=== PATIENT | male | born 1965 | race Caucasian/White ===

== ENCOUNTER 2018-08-04 08:29 | Emergency (ER) | payer OTHER ==
[2018-08-04 08:36] VITALS: RESP 18; TEMP 98.9
[2018-08-04] MEDS ORDERED: MAG HYDROX/AL HYDROX/SIMETH 30 ML, HYOSCYAMINE ELIXIR 10 ML, CIMETIDINE HCL 300 MG PO STA ×3 (08:48)
--- NOTE | 2018-08-04 08:51 | ED ---
Abdominal Pain HPI - General Chief Complaint: Abdominal Pain Stated Complaint: weakness, abd pain Time Seen by Provider: 08/04/18 08:38 Source: patient, family, RN notes reviewed Mode of arrival: wheelchair Limitations: no limitations - History of Present Illness Initial Comments: This a 52-year-old male presents emergency Department chief complaint of upper abdominal pain for the last 5 days. Patient states that pain started after he received influenza vaccine. Patient believes this is related. Patient denies any nausea, vomiting, diarrhea, constipation, dysuria or hematuria. Patient had no fever or chills. He states when he eats his symptoms get better and then it return a few hours after. Patient denies any chest pain or shortness breath denies any reflux issues. Patient states he does have a history of CHF and epilepsy. Patient denies any sick contacts denies any other associated symptoms. - Related Data Allergies Allergy/AdvReac Type Severity Reaction Status Date / Time No Known Allergies Allergy Verified 08/04/18 08:33 Review of Systems ROS Statement: Those systems with pertinent positive or pertinent negative responses have been documented in the HPI. ROS Other: All systems not noted in ROS Statement are negative. Past Medical History Past Medical History: Heart Failure, Seizure Disorder History of Any Multi-Drug Resistant Organisms: None Reported Past Surgical History: No Surgical Hx Reported Past Psychological History: Depression Smoking Status: Never smoker Past Alcohol Use History: None Reported Past Drug Use History: None Reported General Exam Limitations: no limitations General appearance: alert, in no apparent distress Head exam: Present: atraumatic, normocephalic, normal inspection Eye exam: Present: normal appearance, PERRL, EOMI. Absent: scleral icterus, conjunctival injection, periorbital swelling ENT exam: Present: normal exam, normal oropharynx, mucous membranes moist Neck exam: Present: normal inspection, full ROM. Absent: tenderness, meningismus, lymphadenopathy Respiratory exam: Present: normal lung sounds bilaterally. Absent: respiratory distress, wheezes, rales, rhonchi, stridor Cardiovascular Exam: Present: regular rate, normal rhythm, normal heart sounds. Absent: systolic murmur, diastolic murmur, rubs, gallop, clicks GI/Abdominal exam: Present: soft, tenderness (Very minimal upper abdominal tenderness), normal bowel sounds. Absent: distended, guarding, rebound, rigid Back exam: Absent: CVA tenderness (R), CVA tenderness (L) Neurological exam: Present: alert, oriented X3, CN II-XII intact Skin exam: Present: warm, dry, intact, normal color. Absent: rash Course Vital Signs 08/04/18 08/04/18 08/04/18 08:33 08:52 10:01 Temperature 98.9 F Pulse Rate 71 62 Respiratory 18 Rate Blood Pressure 134/84 132/80 130/77 O2 Sat by Pulse 97 96 Oximetry Medical Decision Making - Medical Decision Making 52-year-old male presents emergency from for not feeling well, weak rundown abdominal pain. Patient has troponin of 0.019. EKG shows left bundle. Patient believes he has a history of this though no prior EKG. Patient will be held for repeat cardiac enzymes will be placed on Protonix for gastritis as she' s had some improvement with GI cocktail. - Lab Data Result diagrams: 08/04/18 08:58 08/04/18 08:58 Lab Results 08/04/18 08/04/18 08/04/18 Range/Units 08:58 08:58 08:58 WBC 6.8 (3.8-10.6) k/uL RBC 4.63 (4.30-5.90) m/uL Hgb 14.5 (13.0-17.5) gm/dL Hct 41.9 (39.0-53.0) % MCV 90.5 (80.0-100.0) fL MCH 31.3 (25.0-35.0) pg MCHC 34.6 (31.0-37.0) g/dL RDW 12.9 (11.5-15.5) % Plt Count 181 (150-450) k/uL Neutrophils % 69 % Lymphocytes % 22 % Monocytes % 5 % Eosinophils % 1 % Basophils % 1 % Neutrophils # 4.7 (1.3-7.7) k/uL Lymphocytes # 1.5 (1.0-4.8) k/uL Monocytes # 0.3 (0-1.0) k/uL Eosinophils # 0.1 (0-0.7) k/uL Basophils # 0.0 (0-0.2) k/uL PT 10.3 (9.0-12.0) sec INR 1.1 (<1.2) APTT 25.7 (22.0-30.0) sec Sodium 141 (137-145) mmol/L Potassium 4.9 (3.5-5.1) mmol/L Chloride 102 (98-107) mmol/L Carbon Dioxide 29 (22-30) mmol/L Anion Gap 10 mmol/L BUN 17 (9-20) mg/dL Creatinine 1.18 (0.66-1.25) mg/dL Est GFR (CKD-EPI)AfAm 83 (>60 ml/min/1.73 sqM) Est GFR (CKD-EPI)NonAf 72 (>60 ml/min/1.73 sqM) Glucose 111 H (74-99) mg/dL Calcium 9.6 (8.4-10.2) mg/dL Total Bilirubin 0.6 (0.2-1.3) mg/dL AST 20 (17-59) U/L ALT 25 (21-72) U/L Alkaline Phosphatase 61 (38-126) U/L Troponin I (0.000-0.034) ng/mL Total Protein 7.9 (6.3-8.2) g/dL Albumin 4.3 (3.5-5.0) g/dL Amylase 64 (30-110) U/L Lipase 112 (23-300) U/L Urine Color Urine Appearance (Clear) Urine pH (5.0-8.0) Ur Specific [place] (1.001-1.035) Urine Protein (Negative) Urine Glucose (UA) (Negative) Urine Ketones (Negative) Urine Blood (Negative) Urine Nitrite (Negative) Urine Bilirubin (Negative) Urine Urobilinogen (<2.0) mg/dL Ur Leukocyte Esterase (Negative) 08/04/18 08/04/18 Range/Units 08:58 Unknown WBC (3.8-10.6) k/uL RBC (4.30-5.90) m/uL Hgb (13.0-17.5) gm/dL Hct (39.0-53.0) % MCV (80.0-100.0) fL MCH (25.0-35.0) pg MCHC (31.0-37.0) g/dL RDW (11.5-15.5) % Plt Count (150-450) k/uL Neutrophils % % Lymphocytes % % Monocytes % % Eosinophils % % Basophils % % Neutrophils # (1.3-7.7) k/uL Lymphocytes # (1.0-4.8) k/uL Monocytes # (0-1.0) k/uL Eosinophils # (0-0.7) k/uL Basophils # (0-0.2) k/uL PT (9.0-12.0) sec INR (<1.2) APTT (22.0-30.0) sec Sodium (137-145) mmol/L Potassium (3.5-5.1) mmol/L Chloride (98-107) mmol/L Carbon Dioxide (22-30) mmol/L Anion Gap mmol/L BUN (9-20) mg/dL Creatinine (0.66-1.25) mg/dL Est GFR (CKD-EPI)AfAm (>60 ml/min/1.73 sqM) Est GFR (CKD-EPI)NonAf (>60 ml/min/1.73 sqM) Glucose (74-99) mg/dL Calcium (8.4-10.2) mg/dL Total Bilirubin (0.2-1.3) mg/dL AST (17-59) U/L ALT (21-72) U/L Alkaline Phosphatase (38-126) U/L Troponin I 0.019 (0.000-0.034) ng/mL Total Protein (6.3-8.2) g/dL Albumin (3.5-5.0) g/dL Amylase (30-110) U/L Lipase (23-300) U/L Urine Color Yellow Urine Appearance Clear (Clear) Urine pH 7.0 (5.0-8.0) Ur Specific [place] 1.024 (1.001-1.035) Urine Protein Trace H (Negative) Urine Glucose (UA) Negative (Negative) Urine Ketones Negative (Negative) Urine Blood Negative (Negative) Urine Nitrite Negative (Negative) Urine Bilirubin Negative (Negative) Urine Urobilinogen <2.0 (<2.0) mg/dL Ur Leukocyte Esterase Negative (Negative) - EKG Data EKG Comments: EKG performed at 9:16 normal sinus rhythm with a left bundle branch block, rate 63 [place] 138 QRS 18 QT/QTC 502/513 Disposition Clinical Impression: Weakness, Gastritis, Left bundle branch block Disposition: ADMITTED IP TO THIS HOSP Condition: Stable Referrals: Ran Arboleda MD [Primary Care Provider] - 1-2 days
[2018-08-04 09:28] LABS: Basophils % (A) 1 %; Eosinophils # (A) 0.1 k/uL (0-0.7); Eosinophils % (A) 1 %; HCT 41.9 % (39.0-53.0); HGB 14.5 gm/dL (13.0-17.5); Lymphocytes # (A) 1.5 k/uL (1.0-4.8); Lymphocytes % (A) 22 %; MCH 31.3 pg (25.0-35.0); MCHC 34.6 g/dL (31.0-37.0); MCV 90.5 fL (80.0-100.0); Mean Platelet Volume 7.8; Monocytes # (A) 0.3 k/uL (0-1.0); Monocytes % (A) 5 %; Neutrophils # (A) 4.7 k/uL (1.3-7.7); Neutrophils % (A) 69 %; Platelet Count 181 k/uL (150-450); RBC 4.63 m/uL (4.30-5.90); RDW 12.9 % (11.5-15.5); WBC 6.8 k/uL (3.8-10.6)
[2018-08-04 09:29] LABS: Albumin 4.3 g/dL (3.5-5.0); Calcium 9.6 mg/dL (8.4-10.2); INR 1.1 (<1.2); Partial Thromboplastin Time 25.7 sec (22.0-30.0); Potassium 4.9 mmol/L (3.5-5.1); Prothrombin Time 10.3 sec (9.0-12.0); Total Bilirubin 0.6 mg/dL (0.2-1.3); Total Protein 7.9 g/dL (6.3-8.2)
--- NOTE | 2018-08-04 09:37 | XR ---
EXAMINATION TYPE: XR KUB , 2 VIEWS DATE OF EXAM ORDERED: 08/04/2018 HISTORY: abdominal pain. COMPARISON: None. FINDINGS: The entire abdomen is not visualized on this study. The bowel gas pattern is normal. There is no gross free air. There are no unusual calcifications. IMPRESSION: INCOMPLETE EXAMINATION OF THE ABDOMEN DEMONSTRATING NO ACUTE PROCESS.
[2018-08-04 10:20] VITALS: PULSE 62
[2018-08-04 10:45] LABS: Appearance,Urine Clear (Clear); Bilirubin,Urine Negative (Negative); Blood,Urine Negative (Negative); Color,Urine Yellow; Glucose,Urine (UA) Negative (Negative); Ketones,Urine Negative (Negative); Leukocyte Esterase,Urine Negative (Negative); Nitrite,Urine Negative (Negative); Protein,Urine Trace (Negative); Specific Gravity,Urine 1.024 (1.001-1.035); Urobilinogen,Urine <2.0 mg/dL (<2.0)
[2018-08-04] MEDS ORDERED: ACETAMINOPHEN TAB 325 MG TAB PO PRN (11:02)
[2018-08-04] MEDS ORDERED: ONDANSETRON 4 MG/2 ML VIAL IVP PRN (11:02)
[2018-08-04] MEDS ORDERED: PANTOPRAZOLE 40 MG/10 ML VIAL IV SCH (11:15)
--- NOTE | 2018-08-04 11:28 | XR ---
EXAMINATION TYPE: XR chest 2V DATE OF EXAM: 08/04/2018 HISTORY: Pain. REFERENCE: NONE. FINDINGS: Heart size upper limits of normal. The lungs are clear. Pleural spaces are clear. IMPRESSION: NO ACUTE INTRATHORACIC ABNORMALITY.
[2018-08-04 11:49] VITALS: BP 140/84
== END 2018-08-04 11:50 | disposition other institution (70) ==
LOC: EC 08:29
DX: K29.70 Gastritis, unspecified, without bleeding (principal); R53.1 Weakness; I44.7 Left bundle-branch block, unspecified
CPT/HCPCS: 36415; 71046; 74018; 80053; 81003; 82150; 83690; 84484; 85025; 85610; 85730; 93005; 99284

== ENCOUNTER 2022-02-10 00:04 | Observation (INO) | payer OTHER ==
[2022-02-10 00:10] VITALS: TEMP 98.2
[2022-02-10 00:58] LABS: Basophils # (A) 0.1 k/uL (0-0.2); Basophils % (A) 1 %; Eosinophils # (A) 0.1 k/uL (0-0.7); Eosinophils % (A) 2 %; HCT 43.4 % (39.0-53.0); HGB 13.5 gm/dL (13.0-17.5); Lymphocytes # (A) 1.3 k/uL (1.0-4.8); Lymphocytes % (A) 16 %; MCH 31.1 pg (25.0-35.0); MCV 100.3 fL (80.0-100.0); Mean Platelet Volume 10.6; Monocytes # (A) 0.6 k/uL (0-1.0); Monocytes % (A) 8 %; Neutrophils # (A) 5.8 k/uL (1.3-7.7); Neutrophils % (A) 72 %; Platelet Count 190 k/uL (150-450); RBC 4.33 m/uL (4.30-5.90); RDW 13.5 % (11.5-15.5)
--- NOTE | 2022-02-10 01:01 | XR ---
EXAMINATION TYPE: XR chest 2V DATE OF EXAM: 02/10/2022 COMPARISON: 08/04/2018 HISTORY: Abdominal pain TECHNIQUE: 2 views FINDINGS: Heart is enlarged. There is no heart failure. There are chest leads. Costophrenic angles ar e fairly clear. No pulmonary consolidation. Bony thorax is intact. There are chest leads. IMPRESSION: There is cardiomegaly. Heart is increased compared to old exam. No heart failure seen.
[2022-02-10 01:07] LABS: INR 1.1 (<1.2); Partial Thromboplastin Time 22.1 sec (22.0-30.0); Prothrombin Time 12.2 sec (9.0-12.0)
[2022-02-10 01:11] LABS: Albumin 3.7 g/dL (3.5-5.0); Calcium 8.7 mg/dL (8.4-10.2); Magnesium 2.1 mg/dL (1.6-2.3); Total Bilirubin 0.9 mg/dL (0.2-1.3); Total Protein 8.2 g/dL (6.3-8.2)
[2022-02-10] MEDS ORDERED: FUROSEMIDE 10 MG/ML 4 ML VIAL IV SCH (01:45)
--- NOTE | 2022-02-10 01:50 | ED ---
SOB HPI - General Chief Complaint: Shortness of Breath Stated Complaint: SHADE Time Seen by Provider: 02/10/22 00:38 Source: patient Mode of arrival: ambulatory Limitations: no limitations - History of Present Illness Initial Comments: This patient is a 56-year-old man who presents with 3 days of progressively worsening orthopnea. Patient states that he is not even able to sleep now he must remain upright or he becomes very short of breath. Patient does give history of heart failure. He states that he is scheduled to have ICD placement next month. He has not noted fever or chills. No productive cough. No chest pain. No change in urination or bowel movements. No leg pain or swelling. MD Complaint: shortness of breath Onset/Timin -: days(s) Severity scale (1-10): 0 Consistency: constant Improves With: nothing Worsens With: lying flat Known History Of: congestive heart failure Associated Symptoms: denies other symptoms Treatments Prior to Arrival: none - Related Data Home Medications Medication Instructions Recorded Confirmed Doxycycline Hyclate 100 mg PO BID 02/10/22 02/10/22 Fluticasone Nasal [place] [Flonase 2 spr EA NOSTRIL DAILY 02/10/22 02/10/22 Nasal [place]] Furosemide [Lasix] 20 mg PO DAILY 02/10/22 02/10/22 Losartan [Cozaar] 50 mg PO HS 02/10/22 02/10/22 Pantoprazole [Protonix] 40 mg PO W/LUNCH 02/10/22 02/10/22 Potassium Chloride [Potassium 10 meq PO DAILY 02/10/22 02/10/22 Chloride ER] Sertraline [Zoloft] 25 mg PO DAILY 02/10/22 02/10/22 Spironolactone [Aldactone] 50 mg PO HS 02/10/22 02/10/22 carBAMazepine [Carbatrol] 600 mg PO BID 02/10/22 02/10/22 carvediloL [Coreg] 6.25 mg PO HS 02/10/22 02/10/22 carvediloL [Coreg] 12.5 mg PO DAILY 02/10/22 02/10/22 Allergies Allergy/AdvReac Type Severity Reaction Status Date / Time Penicillins Allergy Rash/Hives Verified 02/10/22 07:13 on entire body Review of Systems ROS Statement: Those systems with pertinent positive or pertinent negative responses have been documented in the HPI. ROS Other: All systems not noted in ROS Statement are negative. Constitutional: Denies: fever, chills Respiratory: Denies: cough, dyspnea Cardiovascular: Denies: chest pain Gastrointestinal: Denies: abdominal pain, vomiting, diarrhea, melena, hematochez ia Genitourinary: Denies: dysuria, hematuria Musculoskeletal: Denies: back pain Skin: Denies: rash Neurological: Denies: headache, weakness Past Medical History Past Medical History: Heart Failure, Seizure Disorder History of Any Multi-Drug Resistant Organisms: None Reported Past Surgical History: No Surgical Hx Reported Past Psychological History: Depression Smoking Status: Never smoker Past Alcohol Use History: None Reported Past Drug Use History: None Reported General Exam Limitations: no limitations General appearance: alert, in no apparent distress Head exam: Present: atraumatic, normocephalic Eye exam: Present: normal appearance. Absent: scleral icterus, conjunctival injection Neck exam: Present: normal inspection Respiratory exam: Present: normal lung sounds bilaterally, rales. Absent: respiratory distress, wheezes, rhonchi, stridor Cardiovascular Exam: Present: regular rate, normal rhythm, normal heart sounds. Absent: systolic murmur, diastolic murmur, rubs, gallop GI/Abdominal exam: Present: soft. Absent: distended, tenderness, guarding, rebound, rigid, mass Extremities exam: Present: normal inspection, normal capillary refill. Absent: pedal edema, calf tenderness Back exam: Present: normal inspection. Absent: CVA tenderness (R), CVA tenderness (L) Neurological exam: Present: alert Skin exam: Present: warm, dry, intact, normal color. Absent: rash Course Vital Signs 02/10/22 02/10/22 00:07 07:00 Temperature 98.2 F 98.2 F Pulse Rate 83 73 Respiratory 18 17 Rate Blood Pressure 113/78 101/68 O2 Sat by Pulse 98 98 Oximetry Medical Decision Making - Lab Data Result diagrams: 02/10/22 00:30 02/10/22 00:30 Lab Results 02/10/22 02/10/22 02/10/22 Range/Units 00:30 00:30 00:30 WBC 8.0 (3.8-10.6) k/uL RBC 4.33 (4.30-5.90) m/uL Hgb 13.5 (13.0-17.5) gm/dL Hct 43.4 (39.0-53.0) % MCV 100.3 H (80.0-100.0) fL MCH 31.1 (25.0-35.0) pg MCHC 31.0 (31.0-37.0) g/dL RDW 13.5 (11.5-15.5) % Plt Count 190 (150-450) k/uL MPV 10.6 Neutrophils % 72 % Lymphocytes % 16 % Monocytes % 8 % Eosinophils % 2 % Basophils % 1 % Neutrophils # 5.8 (1.3-7.7) k/uL Lymphocytes # 1.3 (1.0-4.8) k/uL Monocytes # 0.6 (0-1.0) k/uL Eosinophils # 0.1 (0-0.7) k/uL Basophils # 0.1 (0-0.2) k/uL PT 12.2 H (9.0-12.0) sec INR 1.1 (<1.2) APTT 22.1 (22.0-30.0) sec Sodium 139 (137-145) mmol/L Potassium 5.0 (3.5-5.1) mmol/L Chloride 105 (98-107) mmol/L Carbon Dioxide 25 (22-30) mmol/L Anion Gap 9 mmol/L BUN 35 H (9-20) mg/dL Creatinine 1.56 H (0.66-1.25) mg/dL Est GFR (CKD-EPI)AfAm 57 (>60 ml/min/1.73 sqM) Est GFR (CKD-EPI)NonAf 50 (>60 ml/min/1.73 sqM) Glucose 136 H (74-99) mg/dL Plasma Lactic Acid Steve (0.7-2.0) mmol/L Calcium 8.7 (8.4-10.2) mg/dL Magnesium 2.1 (1.6-2.3) mg/dL Total Bilirubin 0.9 (0.2-1.3) mg/dL AST 49 (17-59) U/L ALT 66 H (4-49) U/L Alkaline Phosphatase 97 (38-126) U/L Troponin I (0.000-0.034) ng/mL NT-Pro-B Natriuret Pep pg/mL Total Protein 8.2 (6.3-8.2) g/dL Albumin 3.7 (3.5-5.0) g/dL Coronavirus (PCR) (Not Detectd) Influenza Type A RNA (Not Detectd) Influenza Type B (PCR) (Not Detectd) 02/10/22 02/10/22 02/10/22 Range/Units 00:30 00:30 00:30 WBC (3.8-10.6) k/uL RBC (4.30-5.90) m/uL Hgb (13.0-17.5) gm/dL Hct (39.0-53.0) % MCV (80.0-100.0) fL MCH (25.0-35.0) pg MCHC (31.0-37.0) g/dL RDW (11.5-15.5) % Plt Count (150-450) k/uL MPV Neutrophils % % Lymphocytes % % Monocytes % % Eosinophils % % Basophils % % Neutrophils # (1.3-7.7) k/uL Lymphocytes # (1.0-4.8) k/uL Monocytes # (0-1.0) k/uL Eosinophils # (0-0.7) k/uL Basophils # (0-0.2) k/uL PT (9.0-12.0) sec INR (<1.2) APTT (22.0-30.0) sec Sodium (137-145) mmol/L Potassium (3.5-5.1) mmol/L Chloride (98-107) mmol/L Carbon Dioxide (22-30) mmol/L Anion Gap mmol/L BUN (9-20) mg/dL Creatinine (0.66-1.25) mg/dL Est GFR (CKD-EPI)AfAm (>60 ml/min/1.73 sqM) Est GFR (CKD-EPI)NonAf (>60 ml/min/1.73 sqM) Glucose (74-99) mg/dL Plasma Lactic Acid Steve 1.3 (0.7-2.0) mmol/L Calcium (8.4-10.2) mg/dL Magnesium (1.6-2.3) mg/dL Total Bilirubin (0.2-1.3) mg/dL AST (17-59) U/L ALT (4-49) U/L Alkaline Phosphatase (38-126) U/L Troponin I 0.210 H* (0.000-0.034) ng/mL NT-Pro-B Natriuret Pep 8470 pg/mL Total Protein (6.3-8.2) g/dL Albumin (3.5-5.0) g/dL Coronavirus (PCR) (Not Detectd) Influenza Type A RNA (Not Detectd) Influenza Type B (PCR) (Not Detectd) 02/10/22 02/10/22 Range/Units 00:57 00:57 WBC (3.8-10.6) k/uL RBC (4.30-5.90) m/uL Hgb (13.0-17.5) gm/dL Hct (39.0-53.0) % MCV (80.0-100.0) fL MCH (25.0-35.0) pg MCHC (31.0-37.0) g/dL RDW (11.5-15.5) % Plt Count (150-450) k/uL MPV Neutrophils % % Lymphocytes % % Monocytes % % Eosinophils % % Basophils % % Neutrophils # (1.3-7.7) k/uL Lymphocytes # (1.0-4.8) k/uL Monocytes # (0-1.0) k/uL Eosinophils # (0-0.7) k/uL Basophils # (0-0.2) k/uL PT (9.0-12.0) sec INR (<1.2) APTT (22.0-30.0) sec Sodium (137-145) mmol/L Potassium (3.5-5.1) mmol/L Chloride (98-107) mmol/L Carbon Dioxide (22-30) mmol/L Anion Gap mmol/L BUN (9-20) mg/dL Creatinine (0.66-1.25) mg/dL Est GFR (CKD-EPI)AfAm (>60 ml/min/1.73 sqM) Est GFR (CKD-EPI)NonAf (>60 ml/min/1.73 sqM) Glucose (74-99) mg/dL Plasma Lactic Acid Steve (0.7-2.0) mmol/L Calcium (8.4-10.2) mg/dL Magnesium (1.6-2.3) mg/dL Total Bilirubin (0.2-1.3) mg/dL AST (17-59) U/L ALT (4-49) U/L Alkaline Phosphatase (38-126) U/L Troponin I (0.000-0.034) ng/mL NT-Pro-B Natriuret Pep pg/mL Total Protein (6.3-8.2) g/dL Albumin (3.5-5.0) g/dL Coronavirus (PCR) Not Detected (Not Detectd) Influenza Type A RNA Not Detected (Not Detectd) Influenza Type B (PCR) Not Detected (Not Detectd) Disposition Clinical Impression: Congestive heart failure, Elevated troponin I level Disposition: ADMITTED IP TO THIS HOSP Condition: Fair Is patient prescribed a controlled substance at d/c from ED?: No
[2022-02-10] MEDS ORDERED: carvediloL 12.5 MG TAB PO SCH (09:30)
[2022-02-10] MEDS ORDERED: FLUTICASONE 50MCG/SPRAY NASAL 16GM EA NOSTRIL SCH (10:00)
[2022-02-10] MEDS ORDERED: carBAMazepine 300 MG CPMP.12HR PO SCH (10:00)
[2022-02-10] MEDS ORDERED: SERTRALINE 25 MG TAB PO SCH (10:00)
[2022-02-10 12:07] VITALS: RESP 18
[2022-02-10] MEDS ORDERED: PANTOPRAZOLE 40 MG TABLET PO SCH (12:30)
--- NOTE | 2022-02-10 12:46 | P.CRDCN ---
History of Present Illness History of present illness: HISTORY OF PRESENT ILLNESS: This is a 56-year-old male with a past medical history significant for seizure disorder, nonischemic cardiomyopathy, congestive heart failure, and hypertension. Patient follows in the office with Dr. Ramsey. We have been asked to see the patient in consultation for congestive heart failure. Patient examined at the bedside. Patient presented to the hospital a chief complaint of shortness of breath. He states his shortness of breath has only been when he is laying flat. He states it has been present for the past 3 days. The patient states he has been taking his medications as prescribed. However he reports a significant increase in his salt intake at home including eating potato chips and eating leftover ham from [facility] on a daily basis. He was given IV lasix with improvement in his SOB. He denies CP. Vital signs are stable. * EKG reveals sinus mechanism with no signs of acute ischemia * Chest xray there is cardiomegaly. Heart is increased compared to exam. No heart failure seen. * Laboratory data: WBC 8.0. Hemoglobin 13.5. Platelet count 190. Sodium 135. Potassium 5.0. BUN 35. Creatinine 1.56. ProBNP 8470. Troponin 0.210. 0.206. 0.214. * Current home cardiac medications include Lasix 20 mg daily, losartan 59 g at night, carvedilol 6.25 mg at night and 12.5 mg daily, and Aldactone 50 mg at night * Most recent echocardiogram obtained in November 2020 revealed ejection fraction of 20% with moderate to severe MR and moderate TR * Cardiac catheterization history: 1993 revealing no significant CAD REVIEW OF SYSTEMS: At the time of my exam: CONSTITUTIONAL: Denies fever or chills. HEENT: Denies blurred vision, vision changes, or eye pain. Denies hemoptysis CARDIOVASCULAR: Denies chest pain. Denies orthopnea. Denies PND. Denies palpitations RESPIRATORY: Denies shortness of breath. GASTROINTESTINAL: Denies abdominal pain. Denies nausea or vomiting. HEMATOLOGIC: Denies bleeding disorders. GENITOURINARY: Denies any blood in urine. SKIN: Denies pruitis. Denies rash. PHYSICAL EXAM: VITAL SIGNS: Reviewed. GENERAL: Well-developed in no acute distress. HEENT: Head is normocephalic. Pupils are equal, round. Sclerae anicteric. Mucous membranes of the mouth are moist. Neck supple. No JVD or thyromegaly LUNGS: Respirations even and unlabored. Lungs essentially clear to auscultation bilaterally. HEART: Regular rate and rhythm. S1 and S2 heard. ABDOMEN: Soft. Nondistended. Nontender. EXTREMITIES: Normal range of motion. No clubbing or cyanosis. Peripheral pulses intact. No lower extremity edema NEUROLOGIC: Awake and alert. Oriented x 3. ASSESSMENT: Acute on chronic heart failure with reduced ejection fraction Nonischemic cardiomyopathy Noncompliance with cardiac diet including increased sodium intake Hypertension Acute kidney injury PLAN: Discontinue IV lasix Increase home lasix to 40mg daily Recommend compliance with low salt diet Patient scheduled for Bi-V AICD implantation next month with Dr. May Patient may be discharged home today Nurse practitioner note has been reviewed by physician. Signing provider agrees with the documented findings, assessment, and plan of care. Past Medical History Past Medical History: Heart Failure, Seizure Disorder History of Any Multi-Drug Resistant Organisms: None Reported Past Surgical History: No Surgical Hx Reported Past Psychological History: Depression Smoking Status: Never smoker Past Alcohol Use History: None Reported Past Drug Use History: None Reported - Past Family History Father Family Medical History: Cancer Additional Family Medical History / Comment(s): Father from metastatic cancer/primary unknown Mother Family Medical History: Osteoarthritis (OA) Medications and Allergies Home Medications Medication Instructions Recorded Confirmed Type Doxycycline Hyclate 100 mg PO BID 02/10/22 02/10/22 History Fluticasone Nasal [place] [Flonase 2 spr EA NOSTRIL DAILY 02/10/22 02/10/22 History Nasal [place]] Furosemide [Lasix] 40 mg PO DAILY #30 tab 02/10/22 Rx Losartan [Cozaar] 50 mg PO HS 02/10/22 02/10/22 History Pantoprazole [Protonix] 40 mg PO W/LUNCH 02/10/22 02/10/22 History Potassium Chloride [Potassium 10 meq PO DAILY 02/10/22 02/10/22 History Chloride ER] Sertraline [Zoloft] 25 mg PO DAILY 02/10/22 02/10/22 History Spironolactone [Aldactone] 50 mg PO HS 02/10/22 02/10/22 History carBAMazepine [Carbatrol] 600 mg PO BID 02/10/22 02/10/22 History carvediloL [Coreg] 6.25 mg PO HS 02/10/22 02/10/22 History carvediloL [Coreg] 12.5 mg PO DAILY 02/10/22 02/10/22 History Allergies Allergy/AdvReac Type Severity Reaction Status Date / Time Penicillins Allergy Rash/Hives Verified 02/10/22 07:13 on entire body Physical Exam Vitals: Vital Signs Temp Pulse Resp BP Pulse Ox 02/10/22 07:00 98.2 F 73 17 101/68 98 02/10/22 00:07 98.2 F 83 18 113/78 98 Intake and Output 02/09/22 02/10/22 02/10/22 22:59 06:59 14:59 Output Total 1500 Balance -1500 Output: Urine 1500 Other: Weight 94.347 kg Results 02/10/22 00:30 02/10/22 00:30 Cardiac Enzymes 02/10/22 02/10/22 02/10/22 Range/Units 00:30 00:30 03:42 AST 49 (17-59) U/L Troponin I 0.210 H* 0.206 H* (0.000-0.034) ng/mL Coagulation 02/10/22 Range/Units 00:30 PT 12.2 H (9.0-12.0) sec APTT 22.1 (22.0-30.0) sec CBC 02/10/22 Range/Units 00:30 WBC 8.0 (3.8-10.6) k/uL RBC 4.33 (4.30-5.90) m/uL Hgb 13.5 (13.0-17.5) gm/dL Hct 43.4 (39.0-53.0) % Plt Count 190 (150-450) k/uL Comprehensive Metabolic Panel 02/10/22 Range/Units 00:30 Sodium 139 (137-145) mmol/L Potassium 5.0 (3.5-5.1) mmol/L Chloride 105 (98-107) mmol/L Carbon Dioxide 25 (22-30) mmol/L BUN 35 H (9-20) mg/dL Creatinine 1.56 H (0.66-1.25) mg/dL Glucose 136 H (74-99) mg/dL Calcium 8.7 (8.4-10.2) mg/dL AST 49 (17-59) U/L ALT 66 H (4-49) U/L Alkaline Phosphatase 97 (38-126) U/L Total Protein 8.2 (6.3-8.2) g/dL Albumin 3.7 (3.5-5.0) g/dL Current Medications Generic Name Dose Route Start Last Admin Trade Name Freq PRN Reason Stop Dose Admin Furosemide 40 mg 02/10/22 01:45 02/10/22 02:21 Furosemide 10 Mg/Ml 4 Ml Vial IV 40 mg Q12H [place] Administration Sodium Chloride 10 ml 02/10/22 09:00 Sodium Chloride 0.9% Flush 10 Ml Syringe IV BID [place] Intake and Output 02/09/22 02/10/22 02/10/22 22:59 06:59 14:59 Output Total 1500 Balance -1500 Output: Urine 1500 Other: Weight 94.347 kg 02/10/22 00:30 02/10/22 00:30
[2022-02-10 12:50] VITALS: BP 92/62; PULSE 71
--- NOTE | 2022-02-10 20:27 | P.HPIM ---
History of Present Illness H&P Date: 02/10/22 Chief Complaint: SHADE Patient is a 56-year-old male with a known history of nonischemic cardiomyopathy, chronic CHF with systolic dysfunction, seizure disorder, depression presents to ER with the complaints of worsening shortness breath for the past 3 days. Patient was also complaining of shortness of breath when lying flat which is worsening which made him to come to ER. Otherwise patient denied any complaints of fever or chills. Patient does have shortness of breath. No chest pain. Does have cough with whitish sputum production. No nausea vomiting abdominal pain or diarrhea. Patient was seen by his primary care physician recently and was started on antibiotics for possible sinusitis with doxycycline. Patient also reports that he is increasing salt intake at home including eating potato chips and eating leftover ham from the still on daily basis. Patient was given IV Lasix in the ER. EKG showed sinus rhythm with no significant ST-T wave changes. Chest x-ray showed increasing cardiomegaly. No heart failure seen. Lab data showed WBC 8.0 hemoglobin 13.5 and platelets 190 Sodium 139 potassium 5.0 chloride 105 bicarb is 25 BUN 35 creatinine 1.56 blood sugar is 136 and troponin 0.210, 0.206 and 0.214 proBNP is 8470 and coronavirus PCR not detected L albumin 3.7 Review of Systems Constitutional: Patient denies any fever or chills . No generalized weakness or weight loss. Abdomen: Patient denied nausea vomiting and diarrhea and abdominal pain. Cardiovascular: Patient denies any chest pain. Patient does have shortness of breath and orthopnea. No palpitations. Minimal leg swelling. Respiratory: Patient does have cough with whitish sputum production. And. shortness of breath Neurologic: Patient denied any numbness or tingling headache. Musculoskeletal: Patient denies any complaints of joint swelling or deformity. Skin: Negative Psychiatric: Negative Endocrine: No heat or cold intolerance. No recent weight gain. Genitourinary: No dysuria or hematuria. All other 14 point ROS negative except the above Past Medical History Past Medical History: Heart Failure, GERD/Reflux, Rheumatoid Arthritis (RA), Seizure Disorder Additional Past Medical History / Comment(s): CHF-pt to have AICD 03/14/22, Last seizure 2 years ago. Pt placed on antibiotic d/t upper respiratory tract infection on 02/09/22 History of Any Multi-Drug Resistant Organisms: None Reported Past Surgical History: No Surgical Hx Reported Additional Past Surgical History / Comment(s): Injury to lower back that caused a "lump" which was removed, conolonscopy Past Anesthesia/Blood Transfusion Reactions: No Reported Reaction Smoking Status: Former smoker - Past Family History Father Family Medical History: Cancer Additional Family Medical History / Comment(s): Father from metastatic cancer/primary unknown Mother Family Medical History: Osteoarthritis (OA) Medications and Allergies Home Medications Medication Instructions Recorded Confirmed Type Doxycycline Hyclate 100 mg PO BID 02/10/22 02/10/22 History Fluticasone Nasal [place] [Flonase 2 spr EA NOSTRIL DAILY 02/10/22 02/10/22 Hi story Nasal [place]] Furosemide [Lasix] 40 mg PO DAILY #30 tab 02/10/22 Rx Losartan [Cozaar] 50 mg PO HS 02/10/22 02/10/22 History Pantoprazole [Protonix] 40 mg PO W/LUNCH 02/10/22 02/10/22 History Potassium Chloride [Potassium 10 meq PO DAILY 02/10/22 02/10/22 History Chloride ER] Sertraline [Zoloft] 25 mg PO DAILY 02/10/22 02/10/22 History Spironolactone [Aldactone] 50 mg PO HS 02/10/22 02/10/22 History carBAMazepine [Carbatrol] 600 mg PO BID 02/10/22 02/10/22 History carvediloL [Coreg] 6.25 mg PO HS 02/10/22 02/10/22 History carvediloL [Coreg] 12.5 mg PO DAILY 02/10/22 02/10/22 History Allergies Allergy/AdvReac Type Severity Reaction Status Date / Time Penicillins Allergy Rash/Hives Verified 02/10/22 07:13 on entire body Physical Exam Vitals: Vital Signs Temp Pulse Resp BP Pulse Ox 02/10/22 08:58 74 20 111/68 97 02/10/22 07:00 98.2 F 73 17 101/68 98 02/10/22 00:07 98.2 F 83 18 113/78 98 Intake and Output 02/09/22 02/10/22 02/10/22 22:59 06:59 14:59 Output Total 1500 Balance -1500 Output: Urine 1500 Other: Weight 94.347 kg 94.347 kg PHYSICAL EXAMINATION: Patient is lying in the bed comfortably, no acute distress, awake alert and oriented.. HEENT: Normocephalic. Neck is supple. Pupils reactive. Nostrils clear. Oral cavity is moist. Neck reveals no JVD, carotid bruits, or thyromegaly. CHEST EXAMINATION: Trachea is central. Symmetrical expansion. Bibasilar crac kles. No wheezing.Lung ramos clear to auscultation and percussion. CARDIAC: Normal S1, S2 with no gallops. No murmurs ABDOMEN: Soft. Bowel sounds normal. No organomegaly. No abdominal bruits. Extremities: trace pedal edema. No clubbing or cyanosis Neurologically awake, alert, oriented x3 with well-coordinated movements. No focal deficits noted Skin: No rash or skin lesions. Psychiatric: Cooperative. Nonsuicidal Musculoskeletal: No joint swelling or deformity. Normal range of motion Results CBC & Chem 7: 02/10/22 00:30 02/10/22 00:30 Labs: Abnormal Lab Results - Last 24 Hours (Table) 02/10/22 02/10/22 02/10/22 Range/Units 00:30 00:30 00:30 MCV 100.3 H (80.0-100.0) fL PT 12.2 H (9.0-12.0) sec BUN 35 H (9-20) mg/dL Creatinine 1.56 H (0.66-1.25) mg/dL Glucose 136 H (74-99) mg/dL ALT 66 H (4-49) U/L Troponin I (0.000-0.034) ng/mL 02/10/22 02/10/22 02/10/22 Range/Units 00:30 03:42 08:05 MCV (80.0-100.0) fL PT (9.0-12.0) sec BUN (9-20) mg/dL Creatinine (0.66-1.25) mg/dL Glucose (74-99) mg/dL ALT (4-49) U/L Troponin I 0.210 H* 0.206 H* 0.214 H* (0.000-0.034) ng/mL Thrombosis Risk Factor Assmnt - DVT/VTE Prophylaxis DVT/VTE Prophylaxis: Pharmacologic Prophylaxis ordered - Choose All That Apply Any of the Below Risk Factors Present?: Yes Each Factor Represents 1 point: Age 41-60 years, Heart failure (<1month) Other Risk Factors: No Other congenital or acquired thrombophilia - If yes, enter type in comment: No Thrombosis Risk Factor Assessment Total Risk Factor Score: 2 Thrombosis Risk Factor Assessment Level: Low Risk Assessment and Plan Assessment: Worsening shortness of breath and orthopnea due to acute CHF Acute on chronic CHF with systolic dysfunction ejection fraction 20% Acute kidney injury. Possible cardiorenal. Nonischemic cardiomyopathy History of seizure disorder Depression DVT prophylaxis with heparin subcu Plan: Patient will be current on telemetry monitoring. Was given IV Lasix with impr ovement in respiratory status. Continue with oxygen at 2 L and will gradually titrate down to room air. Patient was seen by cardiology and recommended increase Lasix to 40 mg daily. Continue with aspirin, statins and Coreg and losartan. Patient is also on Aldactone. Patient is scheduled for biventricular ICD placement next month as per EP. Continue to follow closely. Discussed with the patient and his sister at bedside in detail. Time with Patient: Greater than 30
[2022-02-10] MEDS ORDERED: carvediloL 6.25 MG TAB PO SCH (21:00)
[2022-02-10] MEDS ORDERED: LOSARTAN 50 MG TAB PO SCH (21:00)
[2022-02-10] MEDS ORDERED: SPIRONOLACTONE 25 MG TAB PO SCH (21:00)
[2022-02-11] MEDS ORDERED: FUROSEMIDE 20 MG TAB PO SCH (09:00)
[2022-02-11] MEDS ORDERED: FUROSEMIDE 40 MG TAB PO SCH (09:00)
--- NOTE | 2022-03-02 09:46 | P.DS ---
Providers Date of admission: 02/10/22 01:37 Expected date of discharge: 02/10/22 Attending physician: Kenrick Saldaña Consults: 02/10/22 01:37 Consult Physician Routine Consulting Provider: Arie Garcia Consult Reason/Comments: CHF exacerbation. Elevated troponin Do you want consulting provider notified?: Yes Primary care physician: [facility] Course: Discharge diagnosis Worsening shortness of breath and orthopnea due to acute CHF Acute on chronic CHF with systolic dysfunction ejection fraction 20% Acute kidney injury. Possible cardiorenal. Nonischemic cardiomyopathy History of seizure disorder Depression DVT prophylaxis with heparin subcu Hospital course Patient is a 56-year-old male with a known history of nonischemic cardiomyopathy, chronic CHF with systolic dysfunction, seizure disorder, depression presents to ER with the complaints of worsening shortness breath for the past 3 days. Patient was also complaining of shortness of breath when lying flat which is worsening which made him to come to ER. Otherwise patient denied any complaints of fever or chills. Patient does have shortness of breath. No chest pain. Does have cough with whitish sputum production. No nausea vomiting abdominal pain or diarrhea. Patient was seen by his primary care physician recently and was started on antibiotics for possible sinusitis with doxycycline. Patient also reports that he is increasing salt intake at home including eating potato chips and eating leftover ham from the still on daily basis. Patient was given IV Lasix in the ER. EKG showed sinus rhythm with no significant ST-T wave changes. Chest x-ray showed increasing cardiomegaly. No heart failure seen. Lab data showed WBC 8.0 hemoglobin 13.5 and platelets 190 Sodium 139 potassium 5.0 chloride 105 bicarb is 25 BUN 35 creatinine 1.56 blood sugar is 136 and troponin 0.210, 0.206 and 0.214 proBNP is 8470 and coronavirus PCR not detected L albumin 3.7 Patient was on telemetry monitoring. Was given IV Lasix with improvement in respiratory status. Continue with oxygen at 2 L and will gradually titrate down to room air. Patient was seen by cardiology and recommended increase Lasix to 40 mg daily. Continue with aspirin, statins and Coreg and losartan. Patient is also on Aldactone. Patient is scheduled for biventricular ICD placement next month as per EP. PHYSICAL EXAMINATION: Patient is lying in the bed comfortably, no acute distress, awake alert and oriented.. HEENT: Normocephalic. Neck is supple. Pupils reactive. Nostrils clear. Oral cavity is moist. Neck reveals no JVD, carotid bruits, or thyromegaly. CHEST EXAMINATION: Trachea is central. Symmetrical expansion. No wheezing.Lung ramos clear to auscultation and percussion. CARDIAC: Normal S1, S2 with no gallops. No murmurs ABDOMEN: Soft. Bowel sounds normal. No organomegaly. No abdominal bruits. Extremities: trace pedal edema. No clubbing or cyanosis Neurologically awake, alert, oriented x3 with well-coordinated movements. No focal deficits noted Skin: No rash or skin lesions. Psychiatric: Cooperative. Nonsuicidal Musculoskeletal: No joint swelling or deformity. Normal range of motion Discharge vitals reviewed. Patient Condition at Discharge: Fair Plan - Discharge Summary Discharge Rx Participant: No New Discharge Prescriptions: Continue Pantoprazole [Protonix] 40 mg PO W/LUNCH PRN PRN Reason: Stomach pain carBAMazepine [Carbatrol] 600 mg PO BID-W/MEALS carvediloL [Coreg] 12.5 mg PO AC-BRKFST carvediloL [Coreg] 6.25 mg PO W/SUPPER Potassium Chloride [Potassium Chloride ER] 10 meq PO W/BRKFST Discontinued Furosemide [Lasix] 20 mg PO DAILY No Action Losartan [Cozaar] 25 mg PO HS 30 Days #30 tab Sertraline [Zoloft] 25 mg PO W/BRKFST Furosemide [Lasix] 40 mg PO W/BRKFST Aspirin 81 mg PO W/BRKFST Spironolactone [Aldactone] 25 mg PO W/SUPPER Discharge Medication List Pantoprazole [Protonix] 40 mg PO W/LUNCH PRN 02/10/22 [History] Potassium Chloride [Potassium Chloride ER] 10 meq PO W/BRKFST 02/10/22 [History] carBAMazepine [Carbatrol] 600 mg PO BID-W/MEALS 02/10/22 [History] carvediloL [Coreg] 6.25 mg PO W/SUPPER 02/10/22 [History] carvediloL [Coreg] 12.5 mg PO AC-BRKFST 02/10/22 [History] Spironolactone [Aldactone] 25 mg PO W/SUPPER 02/20/22 [History] Losartan [Cozaar] 25 mg PO HS 30 Days #30 tab 02/22/22 [Rx] Aspirin 81 mg PO W/BRKFST 02/24/22 [History] Furosemide [Lasix] 40 mg PO W/BRKFST 02/24/22 [History] Sertraline [Zoloft] 25 mg PO W/BRKFST 02/24/22 [History] Follow up Appointment(s)/Referral(s): Ran Arboleda MD [Primary Care Provider] - 1-2 days Discharge Disposition: HOME SELF-CARE
== END 2022-02-10 13:01 | disposition home or self-care (01) ==
LOC: EC 00:04 → INTOOBSV 01:37 → 3SCARD 01:37 → UNDODISIN 13:01
PROVIDERS: ADMIT Hospitalist; ATTEND Hospitalist
DX: I11.0 Hypertensive heart disease with heart failure (principal); I50.23 Acute on chronic systolic (congestive) heart failure; N17.9 Acute kidney failure, unspecified; I42.8 Other cardiomyopathies; G40.909 Epilepsy, unspecified, not intractable, without status epilepticus; F32.A Depression, unspecified; K21.9 Gastro-esophageal reflux disease without esophagitis; M06.9 Rheumatoid arthritis, unspecified; Z20.822 Contact with and (suspected) exposure to COVID-19; Z87.891 Personal history of nicotine dependence; Z79.899 Other long term (current) drug therapy; Z88.0 Allergy status to penicillin; Z71.9 Counseling, unspecified; Z91.11 Patient's noncompliance with dietary regimen; Z80.9 Family history of malignant neoplasm, unspecified; Z82.61 Family history of arthritis
CPT/HCPCS: 96374; 99285; 36415; 93005; 83880; 80053; 83605; 83735; 84484; 85025; 85610; 85730; 87502; 87635; 71046; G0378; J1940

== ENCOUNTER 2022-02-14 07:02 | Inpatient (IN) | payer OTHER ==
--- NOTE | 2022-02-14 08:25 | ED ---
SOB HPI - General Chief Complaint: Shortness of Breath Stated Complaint: chest pain Time Seen by Provider: 02/14/22 07:44 Source: patient Mode of arrival: wheelchair Limitations: no limitations - History of Present Illness Initial Comments: 56-year-old male with past mental history of nonischemic cardiomyopathy, CHF, valvular disease presents to the emergency department with shortness of breath. Patient was seen on the for similar complaint and was admitted for an elevated cardiac enzyme. They increased his Lasix to 40 mg. He is supposed to be following up with Dr. Brennan next month for AICD replacement. Patient reports that he has been taking the Lasix as directed however continues to have worsening shortness of breath, especially when laying flat. Mother is at bedside and states that he was up all night struggling to breathe. The patient has now developed bilateral calf cramping. No history of DVT. No fevers, chills or cough. Denies any chest pain. He attempted to follow-up with Dr. Brennan sooner however was told that he is completely booked. No other alleviating, precipitating or modifying factors - Related Data Home Medications Medication Instructions Recorded Confirmed Fluticasone Nasal [place] [Flonase 2 spr EA NOSTRIL DAILY 02/10/22 02/14/22 Nasal [place]] Losartan [Cozaar] 50 mg PO HS 02/10/22 02/14/22 Pantoprazole [Protonix] 40 mg PO W/LUNCH 02/10/22 02/14/22 Potassium Chloride [Potassium 10 meq PO DAILY 02/10/22 02/14/22 Chloride ER] Sertraline [Zoloft] 25 mg PO DAILY 02/10/22 02/14/22 Spironolactone [Aldactone] 50 mg PO HS 02/10/22 02/14/22 carBAMazepine [Carbatrol] 600 mg PO BID 02/10/22 02/14/22 carvediloL [Coreg] 6.25 mg PO HS 02/10/22 02/14/22 carvediloL [Coreg] 12.5 mg PO DAILY 02/10/22 02/14/22 Previous Rx's Medication Instructions Recorded Furosemide [Lasix] 40 mg PO DAILY #30 tab 02/10/22 Allergies Allergy/AdvReac Type Severity Reaction Status Date / Time cheese Allergy Unknown Verified 02/14/22 12:35 Penicillins Allergy Rash/Hives Verified 02/14/22 08:38 on entire body Review of Systems ROS Statement: Those systems with pertinent positive or pertinent negative responses have been documented in the HPI. ROS Other: All systems not noted in ROS Statement are negative. Past Medical History Past Medical History: Heart Failure, GERD/Reflux, Rheumatoid Arthritis (RA), Seizure Disorder Additional Past Medical History / Comment(s): CHF-pt to have AICD 03/14/22, Last seizure 2 years ago. Pt placed on antibiotic d/t upper respiratory tract infection on 02/09/22 History of Any Multi-Drug Resistant Organisms: None Reported Past Surgical History: No Surgical Hx Reported Additional Past Surgical History / Comment(s): Injury to lower back that caused a "lump" which was removed, conolonscopy Past Anesthesia/Blood Transfusion Reactions: No Reported Reaction Past Psychological History: Depression Smoking Status: Former smoker - Past Family History Father Family Medical History: Cancer Additional Family Medical History / Comment(s): Father from metastatic cancer/primary unknown Mother Family Medical History: Osteoarthritis (OA) General Exam Limitations: no limitations General appearance: alert, in no apparent distress Head exam: Present: atraumatic, normocephalic, normal inspection Eye exam: Present: normal appearance, PERRL, EOMI. Absent: scleral icterus, conjunctival injection, periorbital swelling ENT exam: Present: normal exam, mucous membranes moist Neck exam: Present: normal inspection. Absent: tenderness, meningismus, lymphadenopathy Respiratory exam: Present: normal lung sounds bilaterally. Absent: respiratory distress, wheezes, rales, rhonchi, stridor Cardiovascular Exam: Present: regular rate, normal rhythm, normal heart sounds. Absent: systolic murmur, diastolic murmur, rubs, gallop, clicks GI/Abdominal exam: Present: soft, normal bowel sounds. Absent: distended, tenderness, guarding, rebound, rigid Extremities exam: Present: normal inspection, full ROM, normal capillary refill. Absent: tenderness, pedal edema, joint swelling, calf tenderness Back exam: Present: normal inspection Neurological exam: Present: alert, oriented X3, CN II-XII intact Psychiatric exam: Present: normal affect, normal mood Skin exam: Present: warm, dry, intact, normal color. Absent: rash Course Vital Signs 02/14/22 02/14/22 02/14/22 07:04 07:27 08:07 Temperature 97.3 F L 97.9 F Pulse Rate 78 74 Pulse Rate [ Pulse Oximetery ] Respiratory 18 18 18 Rate Blood Pressure 103/65 104/63 Blood Pressure [Left Arm] O2 Sat by Pulse 98 94 L Oximetry 02/14/22 02/14/22 02/14/22 10:01 10:52 13:09 Temperature Pulse Rate 76 78 69 Pulse Rate [ Pulse Oximetery ] Respiratory 18 18 18 Rate Blood Pressure 101/74 95/63 95/58 Blood Pressure [Left Arm] O2 Sat by Pulse 99 96 98 Oximetry 02/14/22 02/14/22 02/14/22 15:00 16:00 16:30 Temperature 97.8 F Pulse Rate 98 71 72 Pulse Rate [ Pulse Oximetery ] Respiratory 18 18 18 Rate Blood Pressure 89/58 102/66 106/67 Blood Pressure [Left Arm] O2 Sat by Pulse 98 98 100 Oximetry 02/14/22 02/14/22 02/14/22 17:36 20:00 23:00 Temperature 98.5 F 98.3 F Pulse Rate 75 80 Pulse Rate [ 73 Pulse Oximetery ] Respiratory 18 18 18 Rate Blood Pressure 106/73 106/67 Blood Pressure 94/70 [Left Arm] O2 Sat by Pulse 99 98 98 Oximetry Medical Decision Making - Medical Decision Making On arrival patient is placed into room 9. A thorough history and physical exam is performed. IV access is established and laboratory studies are conducted. D-dimer is elevated at 2.49. Troponin is 0.106. Troponin was much higher when he was admitted a couple of days ago. BNP 5460. Chest x-ray demonstrates no acute process however I did do a CT of the patient's chest which demonstrates evidence for CHF and right-sided heart failure. Venous Dopplers are performed as the CTA is inadequate. Lower extremity Dopplers demonstrate no evidence of DVT. The patient does take his home blood pressure medications. Upon reevaluation the patient does have a drop in his blood pressure. Due to the difficulty of treating the patient with diuretics due to hypotension I did recommend admission for cardiology consultation. I called and spoke with Dr. Mirza who agreed to admit the patient. - Lab Data Result diagrams: 02/14/22 08:11 02/14/22 08:11 Lab Results 02/14/22 02/14/22 02/14/22 Range/Units 08:11 08:11 08:11 WBC 6.1 (3.8-10.6) k/uL RBC 4.15 L (4.30-5.90) m/uL Hgb 13.6 (13.0-17.5) gm/dL Hct 40.6 (39.0-53.0) % MCV 97.8 (80.0-100.0) fL MCH 32.7 (25.0-35.0) pg MCHC 33.4 (31.0-37.0) g/dL RDW 14.2 (11.5-15.5) % Plt Count 175 (150-450) k/uL MPV 10.5 Neutrophils % 73 % Lymphocytes % 16 % Monocytes % 7 % Eosinophils % 2 % Basophils % 1 % Neutrophils # 4.5 (1.3-7.7) k/uL Lymphocytes # 1.0 (1.0-4.8) k/uL Monocytes # 0.4 (0-1.0) k/uL Eosinophils # 0.1 (0-0.7) k/uL Basophils # 0.0 (0-0.2) k/uL PT 12.3 H (9.0-12.0) sec INR 1.2 H (<1.2) APTT 23.4 (22.0-30.0) sec D-Dimer 2.49 H (<0.60) mg/L FEU Sodium 137 (137-145) mmol/L Potassium 4.2 (3.5-5.1) mmol/L Chloride 103 (98-107) mmol/L Carbon Dioxide 25 (22-30) mmol/L Anion Gap 9 mmol/L BUN 34 H (9-20) mg/dL Creatinine 1.52 H (0.66-1.25) mg/dL Est GFR (CKD-EPI)AfAm 60 (>60 ml/min/1.73 sqM) Est GFR (CKD-EPI)NonAf 52 (>60 ml/min/1.73 sqM) Glucose 126 H (74-99) mg/dL Plasma Lactic Acid Steve (0.7-2.0) mmol/L Calcium 8.7 (8.4-10.2) mg/dL Magnesium 1.9 (1.6-2.3) mg/dL Total Bilirubin 1.3 (0.2-1.3) mg/dL AST 36 (17-59) U/L ALT 63 H (4-49) U/L Alkaline Phosphatase 103 (38-126) U/L Troponin I (0.000-0.034) ng/mL NT-Pro-B Natriuret Pep pg/mL Total Protein 8.3 H (6.3-8.2) g/dL Albumin 3.7 (3.5-5.0) g/dL 02/14/22 02/14/22 02/14/22 Range/Units 08:11 08:11 08:11 WBC (3.8-10.6) k/uL RBC (4.30-5.90) m/uL Hgb (13.0-17.5) gm/dL Hct (39.0-53.0) % MCV (80.0-100.0) fL MCH (25.0-35.0) pg MCHC (31.0-37.0) g/dL RDW (11.5-15.5) % Plt Count (150-450) k/uL MPV Neutrophils % % Lymphocytes % % Monocytes % % Eosinophils % % Basophils % % Neutrophils # (1.3-7.7) k/uL Lymphocytes # (1.0-4.8) k/uL Monocytes # (0-1.0) k/uL Eosinophils # (0-0.7) k/uL Basophils # (0-0.2) k/uL PT (9.0-12.0) sec INR (<1.2) APTT (22.0-30.0) sec D-Dimer (<0.60) mg/L FEU Sodium (137-145) mmol/L Potassium (3.5-5.1) mmol/L Chloride (98-107) mmol/L Carbon Dioxide (22-30) mmol/L Anion Gap mmol/L BUN (9-20) mg/dL Creatinine (0.66-1.25) mg/dL Est GFR (CKD-EPI)AfAm (>60 ml/min/1.73 sqM) Est GFR (CKD-EPI)NonAf (>60 ml/min/1.73 sqM) Glucose (74-99) mg/dL Plasma Lactic Acid Steve 1.3 (0.7-2.0) mmol/L Calcium (8.4-10.2) mg/dL Magnesium (1.6-2.3) mg/dL Total Bilirubin (0.2-1.3) mg/dL AST (17-59) U/L ALT (4-49) U/L Alkaline Phosphatase (38-126) U/L Troponin I 0.106 H* (0.000-0.034) ng/mL NT-Pro-B Natriuret Pep 5460 pg/mL Total Protein (6.3-8.2) g/dL Albumin (3.5-5.0) g/dL - EKG Data EKG Comments: EKG demonstrates sinus rhythm with a rate of 71. NJ interval 180. QRS 214. QTC of 507. There is intraventricular conduction delay. No ST segments elevations or depressions. Disposition Clinical Impression: Congestive heart failure, Elevated troponin I level Disposition: ADMITTED IP TO THIS [facility] Condition: Stable Is patient prescribed a controlled substance at d/c from ED?: No Decision to Admit Reason: Admit from EC Decision Date: 02/14/22 Decision Time: 11:24
--- NOTE | 2022-02-14 08:27 | XR ---
EXAMINATION TYPE: XR chest 2V DATE OF EXAM: 02/14/2022 COMPARISON: Chest x-ray 4 days ago HISTORY: Dyspnea and leg swelling. TECHNIQUE: Frontal and lateral views of the chest are obtained. FINDINGS: There is no suspicious new focal air space opacity, pleural effusion, or pneumothorax seen . Cardiomegaly redemonstrated. The osseous structures are intact. IMPRESSION: Cardiomegaly without acute pulmonary process. No significant change from prior.
[2022-02-14 08:32] LABS: Basophils % (A) 1 %; Eosinophils # (A) 0.1 k/uL (0-0.7); Eosinophils % (A) 2 %; HCT 40.6 % (39.0-53.0); HGB 13.6 gm/dL (13.0-17.5); Lymphocytes % (A) 16 %; MCH 32.7 pg (25.0-35.0); MCHC 33.4 g/dL (31.0-37.0); MCV 97.8 fL (80.0-100.0); Mean Platelet Volume 10.5; Monocytes # (A) 0.4 k/uL (0-1.0); Monocytes % (A) 7 %; Neutrophils # (A) 4.5 k/uL (1.3-7.7); Neutrophils % (A) 73 %; Platelet Count 175 k/uL (150-450); RBC 4.15 m/uL (4.30-5.90); RDW 14.2 % (11.5-15.5); WBC 6.1 k/uL (3.8-10.6)
[2022-02-14 08:38] LABS: Albumin 3.7 g/dL (3.5-5.0); Calcium 8.7 mg/dL (8.4-10.2); Magnesium 1.9 mg/dL (1.6-2.3); Potassium 4.2 mmol/L (3.5-5.1); Total Bilirubin 1.3 mg/dL (0.2-1.3); Total Protein 8.3 g/dL (6.3-8.2)
[2022-02-14 08:41] LABS: INR 1.2 (<1.2); Partial Thromboplastin Time 23.4 sec (22.0-30.0); Prothrombin Time 12.3 sec (9.0-12.0)
--- NOTE | 2022-02-14 10:08 | CT ---
EXAMINATION TYPE: CT chest angio for PE DATE OF EXAM: 02/14/2022 COMPARISON: NONE HISTORY: sob, ELEVATED D-DIMER CT DLP: 398.9 mGycm. Automated Exposure Control for Dose Reduction was Utilized. CONTRAST: CTA scan of the thorax is performed with IV Contrast, patient injected with 80 mL of Isovue 370, pulm onary embolism protocol. MIP Images are created on CT scanner and reviewed. FINDINGS: LUNGS: Mild mosaic attenuation favors mild edema. Respiratory motion artifact degradation limits eval uation for subcentimeter nodules. Mild bibasilar linear scarring and/or atelectasis. No suspicious fo cheryl consolidation. No pleural effusion or pneumothorax seen bilaterally. MEDIASTINUM: There is suboptimal study with most dense contrast causing streak artifact in the SVC. Poorly opacified left lower lobe pulmonary artery with heterogeneous diminished contrast but no focal clot proximally. Suboptimal evaluation passed the this portion noted. Similar finding heterogeneous diminished enhancement segmental and subsegmental vascular structures. There is cardiomegaly with mar ked left ventricular dilatation and moderate right greater than left biatrial dilatation. No pericard ial effusion. Enlarged pulmonary arteries are present suggesting underlying pulmonary artery hyperten amie. OTHER: Underlying scoliosis. Reflux of contrast into IVC and hepatic veins. Cortical thinning visual ized portion of left kidney. IMPRESSION: Evidence of CHF and right heart failure as detailed above. Cardiomegaly with mild diffuse edema. Suboptimal study without central saddle pulmonary embolism, cannot exclude subsegmental pulmo nary emboli particularly to the left lower lobe.
--- NOTE | 2022-02-14 11:21 | US ---
EXAMINATION TYPE: US venous doppler duplex LE DATE OF EXAM: 02/14/2022 9:01 AM COMPARISON: NONE CLINICAL HISTORY: calf pain. Pain SIDE PERFORMED: Bilateral TECHNIQUE: The lower extremity deep venous system is examined utilizing real time linear array sonog eddy with graded compression, doppler sonography and color-flow sonography. VESSELS IMAGED: Common Femoral Vein Deep Femoral Vein Greater Saphenous Vein * Femoral Vein Popliteal Vein Small Saphenous Vein * Proximal Calf Veins (* superficial vessels) Right Leg: Negative for DVT Left Leg: Negative for DVT Satisfactory bilateral blood flow, compressibility, and phasicity. IMPRESSION: No ultrasound evidence for acute DVT in either lower extremity.
[2022-02-14] MEDS ORDERED: NALOXONE 0.4 MG/ML 1 ML VIAL IV PRN (11:24)
[2022-02-14] MEDS ORDERED: LACTULOSE 20 GM/30 ML CUP PO PRN (12:38)
[2022-02-14] MEDS ORDERED: CALCIUM CARBONATE 500 MG CHEWABLE PO PRN (12:38)
[2022-02-14] MEDS ORDERED: ACETAMINOPHEN TAB 325 MG TAB PO PRN (12:38)
[2022-02-14] MEDS ORDERED: ONDANSETRON 4 MG/2 ML VIAL IVP PRN (12:38)
[2022-02-14] MEDS ORDERED: MELATONIN 3 MG TABLET PO PRN (12:38)
[2022-02-14] MEDS: BUMETANIDE 10 MG in DEXTROSE 5% IN WATER 60 ML IV SCH ×2 (13:59)
--- NOTE | 2022-02-14 15:02 | P.HPIM ---
History of Present Illness H&P Date: 02/14/22 Chief Complaint: Short of breath This is a pleasant 56-year-old patient who follows with Dr. Ran Arboleda. Chronic stable medical conditions include GERD, rheumatoid arthritis, seizure disorder. Has known congestive heart failure with a low EF. Scheduled to have her AICD placed on February [address] Brennan. Last seizure was 2 years ago. Patient was in the hospital on February 10. Dose of Lasix was increased to 40 mg. Patient now presents urgent worsening shortness of breath. She stays been going on for one or 2 weeks. Has been using 2 pillows. Finding it difficult to lie down. Minimal lower extremity edema. Does get leg cramps. No fever no chills. Does feel tired. Short of breath at rest. Review of systems: GEN.: Tired EYES: None HEENT: None NECK: None RESPIRATORY: As above CARDIOVASCULAR: None GASTROINTESTINAL: None GENITOURINARY: None MUSCULOSKELETAL: None LYMPHATICS: None HEMATOLOGICAL: None PSYCHIATRY: None NEUROLOGICAL: None Past medical history to include: CHF EF of 20%, GERD, rheumatoid arthritis, seizure disorder, CHF EF 20%, depression Social history: Doesn't his mother. Used to work in a grocery store previously. Smoked for 12 years stopped in 1996. No alcohol. Family history: Father from metastatic cancer. Physical examination: VITAL SIGNS: 97.3, 78, 18, 103/65, 98% room air GENERAL: BMI 25.3, sitting on the edge of the bed, short of breath. EYES: Pupils equal. Conjunctiva normal. HEENT: External appearance of nose and ears normal, oral cavity grossly normal. NECK: JVD raised; masses not palpable. HEART: First and second heart sounds are normal; minimal edema. LUNGS: Respiratory rate increased; decreased breath sounds. ABDOMEN: Soft, nontender, liver spleen not palpable, no masses palpable. PSYCH: Alert and oriented x3; mood and affect normal. MUSCULOSKELETAL:No Clubbing/cyanosis;muscles-grossly intact NEUROLOGICAL: Cranial nerves grossly intact; no facial asymmetry, power and sensation grossly intact. LYMPHATICS: No lymph nodes palpable in the axilla and neck INVESTIGATIONS, reviewed in the clinical context: White count 6.1 hemoglobin 13.6 platelets 175 sodium 137 potassium 4.2 BUN 34 creatinine 1.5 to Troponin I 0.106 0.100 ProBNP 5460 Chest x-ray film personally reviewed by me: Cardiomegaly. Venous prominence. CT chest angiogram for PE: Negative for PE. Cardiomegaly with mild diffuse edema. Assessment and plan: -Acute on chronic congestive heart exacerbation from systolic dysfunction EF 20%. Nonischemic cardio myopathy. Previous cardiac catheterization was unremarkable. We'll give a short course of IV Bumex drip to decrease the preload. Oral Lasix has not been working. Telemetry. Cardiac consultation. -Patient was scheduled for AICD on March 14. -Seizure disorder. Carbatrol 600 mg twice a day -GERD Protonix 40 mg with lunch -Depression Zoloft 100 mg a day -Chronic kidney disease, stage III possibly from cardiorenal syndrome. Renal ultrasound. UA. IV Bumex drip at 0.5 mg an hour. Follow renal function. Fluid restriction. Cardiac diet. Resume home medications. Temporarily hold off losartan. Cardiology consultation. Telemetry. Given the complexity and severity of patient's condition expect the patient to be in the hospital at least for 2 overnights Past Medical History Past Medical History: Heart Failure, GERD/Reflux, Rheumatoid Arthritis (RA), Seizure Disorder Additional Past Medical History / Comment(s): CHF-pt to have AICD 03/14/22, Last seizure 2 years ago. Pt placed on antibiotic d/t upper respiratory tract infection on 02/09/22 History of Any Multi-Drug Resistant Organisms: None Reported Past Surgical History: No Surgical Hx Reported Additional Past Surgical History / Comment(s): Injury to lower back that caused a "lump" which was removed, conolonscopy Past Anesthesia/Blood Transfusion Reactions: No Reported Reaction Past Psychological History: Depression Smoking Status: Former smoker - Past Family History Father Family Medical History: Cancer Additional Family Medical History / Comment(s): Father from metastatic cancer/primary unknown Mother Family Medical History: Osteoarthritis (OA) Medications and Allergies Home Medications Medication Instructions Recorded Confirmed Type Fluticasone Nasal [place] [Flonase 2 spr EA NOSTRIL DAILY 02/10/22 02/14/22 History Nasal [place]] Furosemide [Lasix] 40 mg PO DAILY #30 tab 02/10/22 02/14/22 Rx Losartan [Cozaar] 50 mg PO HS 02/10/22 02/14/22 History Pantoprazole [Protonix] 40 mg PO W/LUNCH 02/10/22 02/14/22 History Potassium Chloride [Potassium 10 meq PO DAILY 02/10/22 02/14/22 History Chloride ER] Sertraline [Zoloft] 25 mg PO DAILY 02/10/22 02/14/22 History Spironolactone [Aldactone] 50 mg PO HS 02/10/22 02/14/22 History carBAMazepine [Carbatrol] 600 mg PO BID 02/10/22 02/14/22 History carvediloL [Coreg] 6.25 mg PO HS 02/10/22 02/14/22 History carvediloL [Coreg] 12.5 mg PO DAILY 02/10/22 02/14/22 History Allergies Allergy/AdvReac Type Severity Reaction Status Date / Time cheese Allergy Unknown Verified 02/14/22 12:35 Penicillins Allergy Rash/Hives Verified 02/14/22 08:38 on entire body Physical Exam Vitals: Vital Signs Temp Pulse Resp BP Pulse Ox 02/14/22 13:09 69 18 95/58 98 02/14/22 10:52 78 18 95/63 96 02/14/22 10:01 76 18 101/74 99 02/14/22 08:07 97.9 F 74 18 104/63 94 L 02/14/22 07:27 18 02/14/22 07:04 97.3 F L 78 18 103/65 98 Intake and Output 02/13/22 02/14/22 02/14/22 22:59 06:59 14:59 Other: Weight 94.347 kg Results CBC & Chem 7: 02/14/22 08:11 02/14/22 08:11 Labs: Abnormal Lab Results - Last 24 Hours (Table) 02/14/22 02/14/22 02/14/22 Range/Units 08:11 08:11 08:11 RBC 4.15 L (4.30-5.90) m/uL PT 12.3 H (9.0-12.0) sec INR 1.2 H (<1.2) D-Dimer 2.49 H (<0.60) mg/L FEU BUN 34 H (9-20) mg/dL Creatinine 1.52 H (0.66-1.25) mg/dL Glucose 126 H (74-99) mg/dL ALT 63 H (4-49) U/L Troponin I (0.000-0.034) ng/mL Total Protein 8.3 H (6.3-8.2) g/dL 02/14/22 02/14/22 Range/Units 08:11 11:56 RBC (4.30-5.90) m/uL PT (9.0-12.0) sec INR (<1.2) D-Dimer (<0.60) mg/L FEU BUN (9-20) mg/dL Creatinine (0.66-1.25) mg/dL Glucose (74-99) mg/dL ALT (4-49) U/L Troponin I 0.106 H* 0.100 H* (0.000-0.034) ng/mL Total Protein (6.3-8.2) g/dL
[2022-02-14 16:52] LABS: Appearance,Urine Clear (Clear); Bilirubin,Urine Negative (Negative); Blood,Urine Negative (Negative); Color,Urine Light Yellow; Glucose,Urine (UA) Negative (Negative); Ketones,Urine Negative (Negative); Leukocyte Esterase,Urine Negative (Negative); Nitrite,Urine Negative (Negative); Protein,Urine Negative (Negative); Specific Gravity,Urine 1.009 (1.001-1.035); Urobilinogen,Urine <2.0 mg/dL (<2.0)
[2022-02-14] MEDS: carvediloL 6.25 MG TAB PO SCH (17:37)
--- NOTE | 2022-02-14 17:59 | US ---
EXAMINATION TYPE: US kidneys/renal and bladder DATE OF EXAM: 02/14/2022 COMPARISON: NONE CLINICAL HISTORY: assess for CKD. EXAM MEASUREMENTS: Right Kidney: 11.4 x 5.5 x 6.1 cm Left Kidney: 11.6 x 5.1 x 4.9 cm Right Kidney: No hydronephrosis Left Kidney: Multiple cyst-like areas; largest seen lateral upper pole measuring 4.2 x 4.0 x 4.0 cm. Bladder: anechoic; wnl IMPRESSION: There are left renal cortical cysts. No evidence of solid renal mass. No evidence of renal obstructio n. No evidence of bladder mass.
[2022-02-14] MEDS: carBAMazepine 300 MG CPMP.12HR PO SCH (21:24)
[2022-02-14] MEDS: SPIRONOLACTONE 25 MG TAB PO SCH (21:24)
[2022-02-15] MEDS: BUMETANIDE 10 MG in DEXTROSE 5% IN WATER 60 ML IV SCH ×2 (01:04)
[2022-02-15] MEDS: carvediloL 12.5 MG TAB PO SCH (05:54)
[2022-02-15 08:56] LABS: Calcium 9.2 mg/dL (8.4-10.2); Potassium 3.9 mmol/L (3.5-5.1)
[2022-02-15 09:05] LABS: Basophils # (A) 0.1 k/uL (0-0.2); Basophils % (A) 1 %; Eosinophils # (A) 0.1 k/uL (0-0.7); Eosinophils % (A) 2 %; HCT 47.5 % (39.0-53.0); HGB 15.4 gm/dL (13.0-17.5); Hypochromasia Slight; Lymphocytes # (A) 0.9 k/uL (1.0-4.8); Lymphocytes % (A) 13 %; MCH 32.6 pg (25.0-35.0); MCHC 32.5 g/dL (31.0-37.0); MCV 100.4 fL (80.0-100.0); Macrocytosis Slight; Mean Platelet Volume 10.4; Monocytes # (A) 0.5 k/uL (0-1.0); Monocytes % (A) 7 %; Neutrophils # (A) 5.4 k/uL (1.3-7.7); Neutrophils % (A) 77 %; Platelet Count 187 k/uL (150-450); RBC 4.73 m/uL (4.30-5.90); RDW 14.2 % (11.5-15.5)
[2022-02-15] MEDS: carBAMazepine 300 MG CPMP.12HR PO SCH ×2 (09:12→20:14)
[2022-02-15] MEDS: SERTRALINE 25 MG TAB PO SCH (09:14)
[2022-02-15] MEDS: POTASSIUM CHLORIDE ER 10 MEQ TAB.ER.PRT PO SCH (09:14)
[2022-02-15] MEDS ORDERED: FUROSEMIDE 20 MG TAB PO SCH (09:15)
--- NOTE | 2022-02-15 09:48 | P.CRDCN ---
History of Present Illness History of present illness: 56-year-old gentleman with history of dilated cardiomyopathy chronic systolic heart failure was recently discharged from the hospital following an admission with congestive heart failure comes in complaining of shortness of breath. Its mild to moderate intensity at rest has both PND and orthopnea. He does not have any leg edema. There is no history of chest pain. There is no history of focal neurological deficits. We have been consulted for the same. At the time of my evaluation patient had already received Bumex drip his symptoms have improved. Patient's be an is 33 creatinine is 1.7 His troponins are mildly elevated at 0.1 0.1 and 0.09 and this is not related to myocardial infarction. It could be related to congestive heart failure exacerbation. BNP is elevated at 5460. Potassium is normal at 3.9 hemoglobin is normal at 15.4 EKG shows sinus rhythm right bundle branch block interventricular conduction delay and nonspecific ST-T wave changes Patient had a computed tomography scan of the chest that was negative for pulmonary embolism there was cardiomegaly with pulmonary edema Patient is currently on intravenous Bumex Coreg and Aldactone. Constitutional: Denies chills. Denies fever. Eyes: Denies blurred vision. Denies pain. Ears, nose, mouth and throat: Denies headache. Denies sore throat. Cardiovascular: Denies chest pain. Respiratory: Denies cough. Significant for shortness of breath Gastrointestinal: Denies abdominal pain. Denies diarrhea. Denies nausea. Denies vomiting. Musculoskeletal: Denies myalgias. Integumentary: Denies pruritus. Denies rash. Neurological: Denies numbness. Denies weakness. Psychiatric: Denies anxiety. Denies depression. Endocrine: Denies fatigue. Denies weight change. Genitourinary: Denies burning, hematuria, frequency of urination. Hematological: No anemia or excess bleeding. General: The patient is awake and alert, in no distress, and does not appear acutely ill. Skin: Skin is warm and dry and no rashes or lesions are noted. Eye: Pupils are equal, round and reactive to light, extra-ocular movements are intact; there is normal conjunctiva bilaterally. Ears, nose, mouth and throat: There are moist mucous membranes and no oral lesions. Neck: The neck is supple, there is no tenderness or JVD. Cardiovascular: There is a regular rate and rhythm. No murmur, rub or gallop is appreciated. Respiratory: al. Diminished air entry bilaterally with occasional crackles Gastrointestinal: Soft, non-distended, non-tender abdomen without masses or organomegaly noted. There is no rebound or guarding present. Bowel sounds are unremarkable. Back: There is no tenderness to palpation in the midline. There is no obvious deformity. Musculoskeletal: Normal ROM, no tenderness, There is no pedal edema. There is no calf tenderness or swelling. Extremities: No edema. Vascular: Femoral pulse is normal. Posterior tibial pulses are normal .Dorsalis pedis is palpable. Neurological: CN II-XII intact. There are no obvious motor or sensory deficits. Speech is normal. Psychiatric: Cooperative, appropriate mood & affect, normal judgment. Assessment and plan: Acute exacerbation of chronic systolic heart failure Nonischemic cardiomyopathy with severe LV dysfunction I'm going to obtain a 2-D echo treat the patient with beta blockers steven inhibitors intravenous diuretics Past Medical History Past Medical History: Heart Failure, GERD/Reflux, Rheumatoid Arthritis (RA), Seizure Disorder Additional Past Medical History / Comment(s): CHF-pt to have AICD 03/14/22, Last seizure 2 years ago. Pt placed on antibiotic d/t upper respiratory tract infection on 02/09/22 History of Any Multi-Drug Resistant Organisms: None Reported Past Surgical History: No Surgical Hx Reported Additional Past Surgical History / Comment(s): Injury to lower back that caused a "lump" which was removed, conolonscopy Past Anesthesia/Blood Transfusion Reactions: No Reported Reaction Past Psychological History: Depression Smoking Status: Former smoker - Past Family History Father Family Medical History: Cancer Additional Family Medical History / Comment(s): Father from metastatic cancer/primary unknown Mother Family Medical History: Osteoarthritis (OA) Medications and Allergies Home Medications Medication Instructions Recorded Confirmed Type Fluticasone Nasal [place] [Flonase 2 spr EA NOSTRIL DAILY 02/10/22 02/14/22 History Nasal [place]] Furosemide [Lasix] 40 mg PO DAILY #30 tab 02/10/22 02/14/22 Rx Losartan [Cozaar] 50 mg PO HS 02/10/22 02/14/22 History Pantoprazole [Protonix] 40 mg PO W/LUNCH 02/10/22 02/14/22 History Potassium Chloride [Potassium 10 meq PO DAILY 02/10/22 02/14/22 History Chloride ER] Sertraline [Zoloft] 25 mg PO DAILY 02/10/22 02/14/22 History Spironolactone [Aldactone] 50 mg PO HS 02/10/22 02/14/22 History carBAMazepine [Carbatrol] 600 mg PO BID 02/10/22 02/14/22 History carvediloL [Coreg] 6.25 mg PO HS 02/10/22 02/14/22 History carvediloL [Coreg] 12.5 mg PO DAILY 02/10/22 02/14/22 History Allergies Allergy/AdvReac Type Severity Reaction Status Date / Time cheese Allergy Unknown Verified 02/14/22 12:35 Penicillins Allergy Rash/Hives Verified 02/14/22 08:38 on entire body Physical Exam Vitals: Vital Signs Temp Pulse Pulse Resp BP BP Pulse Ox 02/15/22 05:52 107/72 02/15/22 05:00 74 18 111/74 96 02/15/22 03:38 99.0 F 77 18 109/76 96 02/15/22 03:00 74 18 109/76 95 02/15/22 02:00 76 75 18 96 02/15/22 01:00 75 18 96 02/15/22 00:00 98.1 F 76 75 18 94/65 104/67 96 02/14/22 23:00 98.3 F 80 18 106/67 98 02/14/22 20:00 98.5 F 73 18 94/70 98 02/14/22 17:36 75 18 106/73 99 02/14/22 16:30 72 18 106/67 100 02/14/22 16:00 71 18 102/66 98 02/14/22 15:00 97.8 F 98 18 89/58 98 02/14/22 13:09 69 18 95/58 98 02/14/22 10:52 78 18 95/63 96 02/14/22 10:01 76 18 101/74 99 Intake and Output 02/14/22 02/15/22 02/15/22 22:59 06:59 14:59 Intake Total 55.417 260 Output Total 824 2920 Balance -059 -2371.688 260 Intake: Intake, IV Titration 55.417 Amount Bumetanide 10 mg In 55.417 Dextrose 5% in Water 60 ml @ 0.5 MG/HR 5 mls/hr IV .Q20H [facility] Rx#: [id number] Oral 260 Output: Urine 825 2400 Other: Voiding Method Urinal Urinal Weight 94.347 kg Results 02/15/22 08:09 02/15/22 08:09 Cardiac Enzymes 02/14/22 02/14/22 Range/Units 11:56 14:04 Troponin I 0.100 H* 0.099 H* (0.000-0.034) ng/mL CBC 02/15/22 Range/Units 08:09 WBC 7.0 (3.8-10.6) k/uL RBC 4.73 (4.30-5.90) m/uL Hgb 15.4 (13.0-17.5) gm/dL Hct 47.5 (39.0-53.0) % Plt Count 187 (150-450) k/uL Comprehensive Metabolic Panel 02/15/22 Range/Units 08:09 Sodium 141 (137-145) mmol/L Potassium 3.9 (3.5-5.1) mmol/L Chloride 95 L (98-107) mmol/L Carbon Dioxide 36 H (22-30) mmol/L BUN 33 H (9-20) mg/dL Creatinine 1.75 H (0.66-1.25) mg/dL Glucose 168 H (74-99) mg/dL Calcium 9.2 (8.4-10.2) mg/dL Current Medications Generic Name Dose Route Start Last Admin Trade Name Freq PRN Reason Stop Dose Admin Acetaminophen 650 mg 02/14/22 12:38 Acetaminophen Tab 325 Mg Tab PO Q6HR PRN Mild Pain or Fever > 100.5 Calcium Carbonate/Glycine 1,000 mg 02/14/22 12:38 Calcium Carbonate 500 Mg Chewable PO Q4HR PRN Dyspepsia Carbamazepine 600 mg 02/14/22 21:00 02/15/22 09:12 Carbamazepine 300 Mg Cpmp.12hr PO 600 mg BID [place] Administration Carvedilol 6.25 mg 02/14/22 17:30 02/14/22 17:37 Carvedilol 6.25 Mg Tab PO 6.25 mg W/SUPPER [place] Administration Carvedilol 12.5 mg 02/15/22 07:30 02/15/22 05:54 Carvedilol 12.5 Mg Tab PO 12.5 mg W/BRKFST [place] Administration Furosemide 20 mg 02/15/22 09:15 02/15/22 09:14 Furosemide 20 Mg Tab PO 20 mg DAILY [place] Administration Lactulose 20 gm 02/14/22 12:38 Lactulose 20 Gm/30 Ml Cup PO DAILY PRN Constipation Melatonin 3 mg 02/14/22 12:38 Melatonin 3 Mg Tablet PO HS PRN Insomnia Naloxone HCl 0.2 mg 02/14/22 11:24 Naloxone 0.4 Mg/Ml 1 Ml Vial IV Q2M PRN Opioid Reversal Ondansetron HCl 4 mg 02/14/22 12:38 Ondansetron 4 Mg/2 Ml Vial IVP Q8HR PRN Nausea And Vomiting Pantoprazole Sodium 40 mg 02/15/22 12:30 Pantoprazole 40 Mg Tablet PO W/LUNCH [place] Potassium Chloride 10 meq 02/15/22 09:15 02/15/22 09:14 Potassium Chloride Er 10 Meq Tab.Er.Prt PO 10 meq DAILY [place] Administration Sertraline HCl 25 mg 02/15/22 09:00 02/15/22 09:14 Sertraline 25 Mg Tab PO 25 mg DAILY [place] Administration Spironolactone 50 mg 02/14/22 21:00 02/14/22 21:24 Spironolactone 25 Mg Tab PO 50 mg HS [place] Administration Intake and Output 02/14/22 02/15/22 02/15/22 22:59 06:59 14:59 Intake Total 55.417 260 Output Total 825 2400 Balance -706 -3903.455 260 Intake: Intake, IV Titration 55.417 Amount Bumetanide 10 mg In 55.417 Dextrose 5% in Water 60 ml @ 0.5 MG/HR 5 mls/hr IV .Q20H [place] Rx#: [id number] Oral 260 Output: Urine 825 2400 Other: Voiding Method Urinal Urinal Weight 94.347 kg 02/15/22 08:09 02/15/22 08:09
[2022-02-15] MEDS: PANTOPRAZOLE 40 MG TABLET PO SCH (12:15)
--- NOTE | 2022-02-15 12:57 | CA ---
Transthoracic Echo Report Name: Will Kennedy Age: 56 Gender: M : 1965 Exam Date: 02/15/2022 10:20 Exam Location: [place] Echo Ht (in): 74 Wt (lb): 209 Ordering Physician: Asa Perez MD ([id number]) Attending/Referring Phys: Chris JEFFERSON [employer] Teacher Khadijah Graham RDCS Procedure CPT: Indications: Chest Pain Cardiac Hx: CARDIOMYOPATHY, CHF Technical Quality: Contrast 1: Lumason Total Dose (mL): 1 Contrast 2: Total Dose (mL): MEASUREMENTS (Male / Female) Normal Values 2D ECHO LV Diastolic Diameter PLAX 8.4 cm 4.2 - 5.9 / 3.9 - 5.3 cm LV Systolic Diameter PLAX 7.6 cm IVS Diastolic Thickness 1.0 cm 0.6 - 1.0 / 0.6 - 0.9 cm LVPW Diastolic Thickness 1.2 cm 0.6 - 1.0 / 0.6 - 0.9 cm LV Relative Wall Thickness 0.3 RV Internal Dim ED PLAX 2.8 cm LA Systolic Diameter LX 5.2 cm 3.0 - 4.0 / 2.7 - 3.8 cm LA Volume 176.8 cm 18 - 58 / 22 - 52 cm M-MODE Aortic Root Diameter MM 2.7 cm LA Systolic Diameter MM 5.3 cm LA Ao Ratio MM 2.0 MV E Point Septal Separation 3.1 cm AV Cusp Separation MM 1.6 cm DOPPLER MV Area PHT 4.4 cm Mitral E Point Velocity 122.8 cm/s Mitral A Point Velocity 62.0 cm/s Mitral E to A Ratio 2.0 MV Deceleration Time 173.0 ms TR Peak Velocity 404.8 cm/s TR Peak Gradient 65.6 mmHg Right Ventricular Systolic Press 70.6 mmHg FINDINGS Left Ventricle Severe left ventricular dilatation. Severely reduced global left ventricular systolic function. Lumason used to r/o clot in LV. Right Ventricle Normal right ventricular size and function. Moderate to severe pulmonary hypertension. Right Atrium Normal right atrial size. Left Atrium Moderately increased left atrial diameter. Severely increased left atrial volume. Moderately increased left atrial area. Mitral Valve Moderate mitral regurgitation. Aortic Valve No aortic valve stenosis or regurgitation. Tricuspid Valve Mild tricuspid regurgitation. Pulmonic Valve Mild pulmonic regurgitation. Pericardium Normal pericardium. Aorta Normal size aortic root and proximal ascending aorta. CONCLUSIONS Severely dilated left ventricle with global decrease in contractility ejection fraction of less than 20%. There is no evidence of any thrombus. Moderate mitral regurgitation. Right-sided pressures are elevated significantly up to 70 mmHg. No pericardial effusion Previewed by: Dr. Sylvia Ramsey MD (Electronically Signed) Final Date: 15 February 2022 12:55
[2022-02-15] MEDS: carvediloL 6.25 MG TAB PO SCH (17:02)
--- NOTE | 2022-02-15 18:19 | P.PN ---
Progress Note - Text Progress Note Date: 02/15/22 Chief Complaint: Short of breath This is a pleasant 56-year-old patient who follows with Dr. Ran Arboleda. Chronic stable medical conditions include GERD, rheumatoid arthritis, seizure disorder. Has known congestive heart failure with a low EF. Scheduled to have her AICD placed on February [address] Brennan. Last seizure was 2 years ago. Patient was in the hospital on February 10. Dose of Lasix was increased to 40 mg. Patient now presents urgent worsening shortness of breath. She stays been going on for one or 2 weeks. Has been using 2 pillows. Finding it difficult to lie down. Minimal lower extremity edema. Does get leg cramps. No fever no chills. Does feel tired. Short of breath at rest. Admitted with acute CHF exacerbation. Started on IV Bumex 0.5 mg per hour. February 15: Patient about 3 L in negative fluid balance. Breathing better. Reclining. Patient's mother insisted the bedside. Eating some. Nephrology consulted. Active Medications Acetaminophen (Acetaminophen Tab 325 Mg Tab) 650 mg PO Q6HR PRN PRN Reason: Mild Pain or Fever > 100.5 Calcium Carbonate/Glycine (Calcium Carbonate 500 Mg Chewable) 1,000 mg PO Q4HR PRN PRN Reason: Dyspepsia Carbamazepine (Carbamazepine 300 Mg Cpmp.12hr) 600 mg PO BID [facility] Last Admin: 02/15/22 09:12 Dose: 600 mg Documented by: Carvedilol (Carvedilol 6.25 Mg Tab) 6.25 mg PO W/SUPPER [facility] Last Admin: 02/15/22 17:02 Dose: 6.25 mg Documented by: Carvedilol (Carvedilol 12.5 Mg Tab) 12.5 mg PO W/BRKFST [facility] Last Admin: 02/15/22 05:54 Dose: 12.5 mg Documented by: Furosemide (Furosemide 40 Mg Tab) 40 mg PO DAILY [facility] Lactulose (Lactulose 20 Gm/30 Ml Cup) 20 gm PO DAILY PRN PRN Reason: Constipation Melatonin (Melatonin 3 Mg Tablet) 3 mg PO HS PRN PRN Reason: Insomnia Naloxone HCl (Naloxone 0.4 Mg/Ml 1 Ml Vial) 0.2 mg IV Q2M PRN PRN Reason: Opioid Reversal Ondansetron HCl (Ondansetron 4 Mg/2 Ml Vial) 4 mg IVP Q8HR PRN PRN Reason: Nausea And Vomiting Pantoprazole Sodium (Pantoprazole 40 Mg Tablet) 40 mg PO W/LUNCH [facility] Last Admin: 02/15/22 12:15 Dose: 40 mg Documented by: Potassium Chloride (Potassium Chloride Er 10 Meq Tab.Er.Prt) 10 meq PO DAILY [facility] Last Admin: 02/15/22 09:14 Dose: 10 meq Documented by: Sertraline HCl (Sertraline 25 Mg Tab) 25 mg PO DAILY [facility] Last Admin: 02/15/22 09:14 Dose: 25 mg Documented by: Spironolactone (Spironolactone 25 Mg Tab) 50 mg PO HS [facility] Last Admin: 02/14/22 21:24 Dose: 50 mg Documented by: Past medical history to include: CHF EF of 20%, GERD, rheumatoid arthritis, seizure disorder, CHF EF 20%, depression Social history: Doesn't his mother. Used to work in a grocery store previously. Smoked for 12 years stopped in 1996. No alcohol. Family history: Father from metastatic cancer. Physical examination: VITAL SIGNS: 98.2, 79, 16, 102/65, 97% room air GENERAL: Reclining in bed, less short of breath EYES: Pupils equal. Conjunctiva normal. HEENT: External appearance of nose and ears normal, oral cavity grossly normal. NECK: JVD raised; masses not palpable. HEART: First and second heart sounds are normal; minimal edema. LUNGS: Respiratory rate increased; basal crackles ABDOMEN: Soft, nontender, liver spleen not palpable, no masses palpable. PSYCH: Alert and oriented x3; mood and affect normal. MUSCULOSKELETAL:No Clubbing/cyanosis;muscles-grossly intact INVESTIGATIONS, reviewed in the clinical context: 2-D echocardiogram: Severe left ventricular dilatation. Moderate to severe pulmonary hypertension. Severely increased left atrial volume. Moderate MR. EF less than 20%. No thrombus reported. February 15: White count 17 hemoglobin 15.4 platelets 187 potassium 3.9 bicarb 36 BUN 33 creatinine 1.75 UA: Negative Renal Ultrasound: Unremarkable. Multiple renal cysts. White count 6.1 hemoglobin 13.6 platelets 175 sodium 137 potassium 4.2 BUN 34 cr eatinine 1.5 to Troponin I 0.106 0.100 ProBNP 5460 Chest x-ray film personally reviewed by me: Cardiomegaly. Venous prominence. CT chest angiogram for PE: Negative for PE. Cardiomegaly with mild diffuse edema. Assessment and plan: -Acute on chronic congestive heart exacerbation from systolic dysfunction less than EF 20%. Nonischemic cardio- myopathy. Previous cardiac catheterization was unremarkable.: Slow to respond Continue IV Bumex drip to decrease the preload. Follow with cardiology Telemetry. -Secondary moderate to severe pulmonary hypertension from CHF -Moderate mitral regurgitation Follow with cardiology -Metabolic alkalosis from diuresis Add Diamox - scheduled for AICD on March 14. -Seizure disorder. Carbatrol 600 mg twice a day -GERD Protonix 40 mg with lunch -Depression Zoloft 100 mg a day -Chronic kidney disease, stage III possibly from cardiorenal syndrome. Renal ultrasound and UA both negative for any chronic renal findings. Consult nephrology. Continue IV Bumex drip. Add Diamox. Consult nephrology. Care was discussed at length with the patient and family at the bedside. Follow with cartilage she.
[2022-02-15] MEDS: acetaZOLAMIDE 250 MG TAB PO SCH (20:13)
[2022-02-15] MEDS: SPIRONOLACTONE 25 MG TAB PO SCH (20:14)
[2022-02-16] MEDS: carvediloL 12.5 MG TAB PO SCH (06:33)
[2022-02-16 08:17] VITALS: RESP 17
[2022-02-16] MEDS: carBAMazepine 300 MG CPMP.12HR PO SCH (08:54)
[2022-02-16] MEDS: SERTRALINE 25 MG TAB PO SCH (08:54)
[2022-02-16] MEDS: POTASSIUM CHLORIDE ER 10 MEQ TAB.ER.PRT PO SCH (08:54)
[2022-02-16] MEDS: acetaZOLAMIDE 250 MG TAB PO SCH (08:54)
[2022-02-16] MEDS ORDERED: FUROSEMIDE 40 MG TAB PO SCH (09:00)
--- NOTE | 2022-02-16 09:55 | P.NPCON ---
History of Present Illness - Reason for Consult acute renal failure, chronic renal failure - History of Present Illness Reason for consultation: Acute kidney injury on chronic kidney disease History of present illness: Patient is a 56-year-old male seen in consultation for acute kidney injury on chronic kidney disease. Patient's creatinine in July 2018 was 1.18 and near 1.5 on admission. It was 1.75 yesterday. Patient presented to the hospital for shortness of breath going on for about 2 weeks. Patient states he was having shortness of breath especially when he was laying down. He felt better sitting up. No history of diabetes. No hematuria or dysuria. Denies regular use of nonsteroidals. Denies family history of renal disease. No fever or chills. No cough. Oral intake is good. Patient has systolic CHF with ejection fraction of less than 20% with moderate mitral regurgitation and moderate to severe pulmonary hypertension. He was maintained on Bumex drip and is now maintained on oral Lasix 40 mg once daily. Denies edema. Kidney ultrasound showed no evidence of hydronephrosis. He also received IV contrast dye for CT angiogram which showed evidence of CHF. Vital signs are stable. General: No acute distress. HEENT: Head exam is unremarkable. LUNGS: Breath sounds decreased. HEART: Rate and Rhythm are regular. ABDOMEN: Soft, no distention. EXTREMITITES: No edema. Past Medical History Past Medical History: Heart Failure, GERD/Reflux, Rheumatoid Arthritis (RA), Seizure Disorder Additional Past Medical History / Comment(s): CHF-pt to have AICD 03/14/22, Last seizure 2 years ago. Pt placed on antibiotic d/t upper respiratory tract infection on 02/09/22 History of Any Multi-Drug Resistant Organisms: None Reported Past Surgical History: No Surgical Hx Reported Additional Past Surgical History / Comment(s): Injury to lower back that caused a "lump" which was removed, conolonscopy Past Anesthesia/Blood Transfusion Reactions: No Reported Reaction Past Psychological History: Depression Smoking Status: Former smoker - Past Family History Father Family Medical History: Cancer Additional Family Medical History / Comment(s): Father from metastatic cancer/primary unknown Mother Family Medical History: Osteoarthritis (OA) Medications and Allergies Home Medications Medication Instructions Recorded Confirmed Type Fluticasone Nasal [place] [Flonase 2 spr EA NOSTRIL DAILY 02/10/22 02/14/22 History Nasal [place]] Furosemide [Lasix] 40 mg PO DAILY #30 tab 02/10/22 02/14/22 Rx Losartan [Cozaar] 50 mg PO HS 02/10/22 02/14/22 History Pantoprazole [Protonix] 40 mg PO W/LUNCH 02/10/22 02/14/22 History Potassium Chloride [Potassium 10 meq PO DAILY 02/10/22 02/14/22 History Chloride ER] Sertraline [Zoloft] 25 mg PO DAILY 02/10/22 02/14/22 History Spironolactone [Aldactone] 50 mg PO HS 02/10/22 02/14/22 History carBAMazepine [Carbatrol] 600 mg PO BID 02/10/22 02/14/22 History carvediloL [Coreg] 6.25 mg PO HS 02/10/22 02/14/22 History carvediloL [Coreg] 12.5 mg PO DAILY 02/10/22 02/14/22 History Allergies Allergy/AdvReac Type Severity Reaction Status Date / Time cheese Allergy Unknown Verified 02/14/22 12:35 Penicillins Allergy Rash/Hives Verified 02/14/22 08:38 on entire body Physical Exam Vitals: Vital Signs Temp Pulse Pulse Resp BP BP Pulse Ox 02/16/22 08:00 97.8 F 78 17 91/58 96 02/16/22 04:00 97.6 F 82 18 100/66 97 02/15/22 23:39 75 16 93/59 97 02/15/22 20:10 97.4 F L 66 18 98/62 97 02/15/22 16:00 98.2 F 79 16 102/65 97 02/15/22 14:05 98.1 F 76 16 95/60 97 02/15/22 13:06 98.0 F 74 14 108/70 95 Intake and Output 02/15/22 02/16/22 02/16/22 22:59 06:59 14:59 Intake Total 900 480 Output Total 350 100 Balance 550 -100 480 Intake: Oral 900 480 Output: Urine 350 100 Other: Voiding Method Urinal Weight 86.9 kg Results - Lab Results Most recent lab results Calcium 9.2 mg/dL (8.4-10.2) 02/15/22 08:09 Magnesium 1.9 mg/dL (1.6-2.3) 02/14/22 08:11 02/15/22 08:09 02/15/22 08:09 Assessment and Plan Plan: Assessment: 1. Acute kidney injury secondary to ATN secondary to cardiorenal syndrome and contrast-induced acute kidney injury. Patient received IV contrast on 02/14/2022. Creatinine 1.75 yesterday. No hydronephrosis noted on ultrasound. UA benign. 2. Chronic kidney disease stage IIIa. Baseline creatinine will need to be established - likely near 1.5. Etiology is cardiorenal syndrome. 3. Acute on chronic systolic CHF with ejection fraction of less than 20% with moderate mitral regurgitation and moderate to severe pulmonary hypertension. 4. Volume overload. Improving with diuresis. Plan: Maintain oral Lasix. Stop Diamox. Scheduled for AICD placement on 03/14/2022. Morning labs pending. I advised patient to follow a low-salt diet and maintain a 40 ounce fluid restriction per day upon discharge. He was also advised to monitor his weight closely at home and to call physician if notices worsening edema or greater than 3 pound weight gain in 1 week dur ation. Follow-up outpatient in 1 week. Thank you for the consultation. I will continue to follow the patient with you during his hospital stay.
[2022-02-16 10:37] LABS: Calcium 9.2 mg/dL (8.4-10.2); Potassium 4.4 mmol/L (3.5-5.1)
[2022-02-16 11:43] VITALS: BP 90/56; PULSE 69; TEMP 98.3
--- NOTE | 2022-02-16 12:14 | P.PN ---
Subjective Progress Note Date: 02/16/22 HISTORY OF PRESENT ILLNESS: Patient examined this morning. Patient is sitting up in the chair. Patient denies chest pain or pressure. He denies shortness of breath. He remains on oral Lasix. Vital signs are stable. PHYSICAL EXAM: VITAL SIGNS: Reviewed. GENERAL: Well-developed in no acute distress. NECK: Supple. No JVD or thyromegaly LUNGS: Respirations even and unlabored. Lungs essentially clear to auscultation bilaterally. HEART: Regular rate and rhythm. S1 and S2 heard. EXTREMITIES: Normal range of motion. No clubbing or cyanosis. Peripheral p ulses intact. No lower extremity edema ASSESSMENT: Acute on chronic heart failure with reduced ejection fraction Nonischemic cardiomyopathy Hypertension Acute kidney injury PLAN: Continue current cardiac medications Patient is stable for discharge home today from a cardiac standpoint with outpatient follow-up Nurse practitioner note has been reviewed by physician. Signing provider agrees with the documented findings, assessment, and plan of care. Objective - Vital Signs Vital signs: Vital Signs Temp 98.3 F 02/16/22 11:42 Pulse 69 02/16/22 11:42 Resp 17 02/16/22 11:42 BP 90/56 02/16/22 11:42 Pulse Ox 98 02/16/22 11:42 Intake & Output 02/15/22 02/16/22 02/16/22 18:59 06:59 18:59 Intake Total 1280 480 Output Total 750 450 Balance 530 -450 480 Weight 86.9 kg Intake: Oral 1280 480 Output: Urine 750 450 Other: Voiding Method Urinal Urinal Urinal - Labs CBC & Chem 7: 02/15/22 08:09 02/16/22 09:41 Labs: Abnormal Lab Results - Last 24 Hours (Table) 02/16/22 Range/Units 09:41 Chloride 93 L (98-107) mmol/L Carbon Dioxide 36 H (22-30) mmol/L BUN 32 H (9-20) mg/dL Creatinine 2.11 H (0.66-1.25) mg/dL Glucose 166 H (74-99) mg/dL
[2022-02-16] MEDS: PANTOPRAZOLE 40 MG TABLET PO SCH (12:44)
--- NOTE | 2022-02-16 14:06 | P.DS ---
Providers Date of admission: 02/14/22 11:24 Expected date of discharge: 02/16/22 Attending physician: Jose Mirza Consults: 02/14/22 11:27 Consult Physician Urgent Consulting Provider: [facility] Consult Reason/Comments: nstemi, aechf Do you want consulting provider notified?: Yes 02/15/22 11:41 Consult Physician Routine Consulting Provider: Hal Shukla Consult Reason/Comments: kidney failure Do you want consulting provider notified?: Yes [facility] Course: Chief Complaint: Short of breath This is a pleasant 56-year-old patient who follows with Dr. Ran Arboleda. Chronic stable medical conditions include GERD, rheumatoid arthritis, seizure disorder. Has known congestive heart failure with a low EF. Scheduled to have her AICD placed on February [address] Brennan. Last seizure was 2 years ago. Patient was in the hospital on February 10. Dose of Lasix was increased to 40 mg. Patient now presents urgent worsening shortness of breath. She stays been going on for one or 2 weeks. Has been using 2 pillows. Finding it difficult to lie down. Minimal lower extremity edema. Does get leg cramps. No fever no chills. Does feel tired. Short of breath at rest. Admitted with acute CHF exacerbation. Started on IV Bumex 0.5 mg per hour. February 15: Patient about 3 L in negative fluid balance. Breathing better. Reclining. Patient's mother insisted the bedside. Eating some. Nephrology consulted. February 16: Patient changed to by mouth Lasix. Breathing greatly improved. Ambulating in the room. Care was discussed in detail with the patient and sister the bedside. Questions answered. Seen by Dr. Shukla from nephrology. Hold losartan to follow up with cardiology. Fluid restriction 800 mL a day. Dose all diet. Discussion and discharge planning more than 35 minutes Past medical history to include: CHF EF of 20%, GERD, rheumatoid arthritis, seizure disorder, CHF EF 20%, depression Social history: Doesn't his mother. Used to work in a grocery store previously. Smoked for 12 years stopped in 1996. No alcohol. Family history: Father from metastatic cancer. Physical examination: VITAL SIGNS: 98.3, 69, 17, 90/56, 98% room air GENERAL: Sitting up breathing comfortable EYES: Pupils equal. Conjunctiva normal. HEENT: External appearance of nose and ears normal, oral cavity grossly normal. NECK: JVD raised; masses not palpable. HEART: First and second heart sounds are normal; minimal edema. LUNGS: Respiratory rate normal; lungs clear ABDOMEN: Soft, nontender, liver spleen not palpable, no masses palpable. PSYCH: Alert and oriented x3; mood and affect slightly anxious MUSCULOSKELETAL:No Clubbing/cyanosis;muscles-grossly intact INVESTIGATIONS, reviewed in the clinical context: February 16: Potassium 4.4 BUN 32 creatinine 2.11 2-D echocardiogram: Severe left ventricular dilatation. Moderate to severe pulmonary hypertension. Severely increased left atrial volume. Moderate MR. EF less than 20%. No thrombus reported. February 15: White count 17 hemoglobin 15.4 platelets 187 potassium 3.9 bicarb 36 BUN 33 creatinine 1.75 UA: Negative Renal Ultrasound: Unremarkable. Multiple renal cysts. White count 6.1 hemoglobin 13.6 platelets 175 sodium 137 potassium 4.2 BUN 34 creatinine 1.5 to Troponin I 0.106 0.100 ProBNP 5460 Chest x-ray film personally reviewed by me: Cardiomegaly. Venous prominence. CT chest angiogram for PE: Negative for PE. Cardiomegaly with mild diffuse edema. Assessment and plan: -Acute on chronic congestive heart exacerbation from systolic dysfunction less than EF 20%. Nonischemic cardio- myopathy. Previous cardiac catheterization was unremarkable.: Better Changed over to by mouth Lasix. Add Aldactone. Hold losartan to follow-up with cartilage she. -Secondary moderate to severe pulmonary hypertension from CHF -Moderate mitral regurgitation Follow with cardiology -Metabolic alkalosis from diuresis Add Diamox - scheduled for AICD on March 14. -Seizure disorder. Carbatrol 600 mg twice a day -GERD Protonix 40 mg with lunch -Depression Zoloft 100 mg a day -Chronic kidney disease, stage III possibly from cardiorenal syndrome. Renal ultrasound and UA both negative for any chronic renal findings. Outpatient follow-up with nephrology Disposition: Home Plan - Discharge Summary Discharge Rx Participant: No New Discharge Prescriptions: New Spironolactone [Aldactone] 25 mg PO DAILY #30 tablet Continue Fluticasone Nasal [place] [Flonase Nasal [place]] 2 spr EA NOSTRIL DAILY Pantoprazole [Protonix] 40 mg PO W/LUNCH carBAMazepine [Carbatrol] 600 mg PO BID carvediloL [Coreg] 12.5 mg PO DAILY carvediloL [Coreg] 6.25 mg PO HS Losartan [Cozaar] 50 mg PO HS Potassium Chloride [Potassium Chloride ER] 10 meq PO DAILY Sertraline [Zoloft] 25 mg PO DAILY Spironolactone [Aldactone] 50 mg PO HS Furosemide [Lasix] 40 mg PO DAILY #30 tab Discharge Medication List Fluticasone Nasal [place] [Flonase Nasal [place]] 2 spr EA NOSTRIL DAILY 02/10/22 [History] Furosemide [Lasix] 40 mg PO DAILY #30 tab 02/10/22 [Rx] Losartan [Cozaar] 50 mg PO HS 02/10/22 [History] Pantoprazole [Protonix] 40 mg PO W/LUNCH 02/10/22 [History] Potassium Chloride [Potassium Chloride ER] 10 meq PO DAILY 02/10/22 [History] Sertraline [Zoloft] 25 mg PO DAILY 02/10/22 [History] Spironolactone [Aldactone] 50 mg PO HS 02/10/22 [History] carBAMazepine [Carbatrol] 600 mg PO BID 02/10/22 [History] carvediloL [Coreg] 6.25 mg PO HS 02/10/22 [History] carvediloL [Coreg] 12.5 mg PO DAILY 02/10/22 [History] Spironolactone [Aldactone] 25 mg PO DAILY #30 tablet 02/16/22 [Rx] Follow up Appointment(s)/Referral(s): Syvlia Ramsey MD [STAFF PHYSICIAN] - 1 Week (February 23 2:45 at [facility]) Ran Arboleda MD [Primary Care Provider] - 1-2 days (March 06 5:30 ) Hal Shukla DO [STAFF PHYSICIAN] - 1 Week (office will call you with appt time) Patient Instructions/Handouts: Heart Failure (DC) Activity/Diet/Wound Care/Special Instructions: fluid restrict 1800 cc/day low salt diet hold cozaar till f/u with physician Discharge Disposition: HOME SELF-CARE
== END 2022-02-16 13:31 | disposition home or self-care (01) | DRG 291 ==
LOC: EC 07:02 → 3SCARD 11:24
PROVIDERS: ADMIT Hospitalist; ATTEND Hospitalist
DX: I13.0 Hypertensive heart and chronic kidney disease with heart failure and stage 1 through stage 4 chronic kidney disease, or unspecified chronic kidney disease (principal); I50.23 Acute on chronic systolic (congestive) heart failure; N17.0 Acute kidney failure with tubular necrosis; E87.3 Alkalosis; F32.A Depression, unspecified; G40.909 Epilepsy, unspecified, not intractable, without status epilepticus; G47.00 Insomnia, unspecified; I27.29 Other secondary pulmonary hypertension; I34.0 Nonrheumatic mitral (valve) insufficiency; I42.0 Dilated cardiomyopathy; T50.8X5A Adverse effect of diagnostic agents, initial encounter; T50.1X5A Adverse effect of loop [high-ceiling] diuretics, initial encounter; R73.9 Hyperglycemia, unspecified; R79.89 Other specified abnormal findings of blood chemistry; I45.10 Unspecified right bundle-branch block; I37.1 Nonrheumatic pulmonary valve insufficiency; I95.9 Hypotension, unspecified; I50.82 Biventricular heart failure; K21.9 Gastro-esophageal reflux disease without esophagitis; K59.00 Constipation, unspecified; M06.9 Rheumatoid arthritis, unspecified; N18.31 Chronic kidney disease, stage 3a; Z79.899 Other long term (current) drug therapy; Z80.9 Family history of malignant neoplasm, unspecified; Z87.891 Personal history of nicotine dependence; X58.XXXA Exposure to other specified factors, initial encounter; Z88.0 Allergy status to penicillin; Z91.011 Allergy to milk products; Z95.810 Presence of automatic (implantable) cardiac defibrillator
CPT/HCPCS: 36415; 71046; 71275; 76770; 80048; 80053; 81003; 83605; 83735; 83880; 84484; 85025; 85379; 85610; 85730; 93005; 93306; 93970; 96365; 96366; 99285

== ENCOUNTER 2022-02-20 05:12 | Observation (INO) | payer OTHER ==
--- NOTE | 2022-02-20 05:56 | XR ---
EXAMINATION TYPE: XR chest 2V DATE OF EXAM: 02/20/2022 COMPARISON: 02/14/2022 HISTORY: Weakness TECHNIQUE: FINDINGS: Heart is enlarged. No heart failure. There is no sign of pleural effusion. There are no hil ar masses. Mediastinum is within normal limits. Bony thorax is intact. IMPRESSION: There is moderate cardiomegaly similar to old exam. No heart failure seen.
[2022-02-20 06:19] LABS: Basophils # (A) 0.1 k/uL (0-0.2); Basophils % (A) 1 %; Eosinophils # (A) 0.1 k/uL (0-0.7); Eosinophils % (A) 2 %; HCT 45.4 % (39.0-53.0); HGB 14.4 gm/dL (13.0-17.5); Lymphocytes # (A) 1.1 k/uL (1.0-4.8); Lymphocytes % (A) 16 %; MCH 30.9 pg (25.0-35.0); MCHC 31.8 g/dL (31.0-37.0); MCV 97.1 fL (80.0-100.0); Mean Platelet Volume 10.1; Monocytes # (A) 0.6 k/uL (0-1.0); Monocytes % (A) 8 %; Neutrophils # (A) 5.1 k/uL (1.3-7.7); Neutrophils % (A) 72 %; Platelet Count 221 k/uL (150-450); RBC 4.67 m/uL (4.30-5.90); RDW 13.3 % (11.5-15.5); WBC 7.2 k/uL (3.8-10.6)
[2022-02-20 06:28] LABS: Partial Thromboplastin Time 22.7 sec (22.0-30.0); Prothrombin Time 11.2 sec (9.0-12.0)
[2022-02-20 07:04] LABS: Calcium 8.8 mg/dL (8.4-10.2); Potassium 3.8 mmol/L (3.5-5.1); Total Protein 8.7 g/dL (6.3-8.2)
--- NOTE | 2022-02-20 07:38 | ED ---
Weakness HPI - General Chief complaint: Weakness Stated complaint: Weakness Time Seen by Provider: 02/20/22 06:07 Source: patient, RN notes reviewed Mode of arrival: wheelchair Limitations: no limitations - History of Present Illness Initial comments: This a 56-year-old male presents emergency Department with chief complaint of generalized weakness. Patient states that he was recently admitted for CHF, heart issues. Patient states that he is 19 pounds loss from diuresis. Patient states she's just felt very weak, not feeling well concerned that his labs are off. He denies complains of increased shortness breath or leg swelling no chest pain he states he is scheduled for cardiac procedure by Dr. May. Patient denies any nausea vomiting diarrhea constipation no cough or cold-like symptoms - Related Data Home Medications Medication Instructions Recorded Confirmed Fluticasone Nasal [place] [Flonase 2 spr EA NOSTRIL DAILY 02/10/22 02/14/22 Nasal [place]] Losartan [Cozaar] 50 mg PO HS 02/10/22 02/14/22 Pantoprazole [Protonix] 40 mg PO W/LUNCH 02/10/22 02/14/22 Potassium Chloride [Potassium 10 meq PO DAILY 02/10/22 02/14/22 Chloride ER] Sertraline [Zoloft] 25 mg PO DAILY 02/10/22 02/14/22 Spironolactone [Aldactone] 50 mg PO HS 02/10/22 02/14/22 carBAMazepine [Carbatrol] 600 mg PO BID 02/10/22 02/14/22 carvediloL [Coreg] 6.25 mg PO HS 02/10/22 02/14/22 carvediloL [Coreg] 12.5 mg PO DAILY 02/10/22 02/14/22 Previous Rx's Medication Instructions Recorded Furosemide [Lasix] 40 mg PO DAILY #30 tab 02/10/22 Spironolactone [Aldactone] 25 mg PO DAILY #30 tablet 02/16/22 Allergies Allergy/AdvReac Type Severity Reaction Status Date / Time cheese Allergy Unknown Verified 02/20/22 05:22 Penicillins Allergy Rash/Hives Verified 02/20/22 08:47 on entire body Review of Systems ROS Statement: Those systems with pertinent positive or pertinent negative responses have been documented in the HPI. ROS Other: All systems not noted in ROS Statement are negative. Past Medical History Past Medical History: Heart Failure, GERD/Reflux, Rheumatoid Arthritis (RA), Seizure Disorder Additional Past Medical History / Comment(s): CHF-pt to have AICD 03/14/22, Last seizure 2 years ago. Pt placed on antibiotic d/t upper respiratory tract infection on 02/09/22 History of Any Multi-Drug Resistant Organisms: None Reported Past Surgical History: No Surgical Hx Reported Additional Past Surgical History / Comment(s): Injury to lower back that caused a "lump" which was removed, conolonscopy Past Anesthesia/Blood Transfusion Reactions: No Reported Reaction Past Psychological History: Depression Smoking Status: Former smoker Past Alcohol Use History: None Reported Past Drug Use History: None Reported - Past Family History Father Family Medical History: Cancer Additional Family Medical History / Comment(s): Father from metastatic cancer/primary unknown Mother Family Medical History: Osteoarthritis (OA) General Exam Limitations: no limitations General appearance: alert, in no apparent distress Head exam: Present: atraumatic, normocephalic, normal inspection Eye exam: Present: normal appearance, PERRL, EOMI. Absent: scleral icterus, c onjunctival injection, periorbital swelling ENT exam: Present: normal exam, mucous membranes moist Neck exam: Present: normal inspection, full ROM. Absent: tenderness, meningismus, lymphadenopathy Respiratory exam: Present: normal lung sounds bilaterally. Absent: respiratory distress, wheezes, rales, rhonchi, stridor Cardiovascular Exam: Present: regular rate, normal rhythm, normal heart sounds. Absent: systolic murmur, diastolic murmur, rubs, gallop, clicks GI/Abdominal exam: Present: soft, normal bowel sounds. Absent: distended, tenderness, guarding, rebound, rigid Neurological exam: Present: alert Skin exam: Present: warm, dry, intact, normal color. Absent: rash Course Vital Signs 02/20/22 02/20/22 02/20/22 05:19 06:13 06:48 Temperature 97.8 F Pulse Rate 85 84 87 Respiratory 16 18 18 Rate Blood Pressure 107/78 107/74 107/74 O2 Sat by Pulse 97 97 97 Oximetry 02/20/22 02/20/22 07:14 07:58 Temperature 98.1 F Pulse Rate 98 80 Respiratory 18 18 Rate Blood Pressure 111/71 111/77 O2 Sat by Pulse 96 97 Oximetry Medical Decision Making - Medical Decision Making 56-year-old presented emergency department for jaundice weakness troponin is elevated significantly from prior patient's BNP is also elevated though no acute chest x-ray changes. This may be related to stress related to his low EF patient's case discussed with Dr. Barrios. patient will be admitted for trending of troponin. - Lab Data Result diagrams: 02/20/22 06:08 02/20/22 06:08 Lab Results 02/20/22 02/20/22 02/20/22 Range/Units 06:08 06:08 06:08 WBC 7.2 (3.8-10.6) k/uL RBC 4.67 (4.30-5.90) m/uL Hgb 14.4 (13.0-17.5) gm/dL Hct 45.4 (39.0-53.0) % MCV 97.1 (80.0-100.0) fL MCH 30.9 (25.0-35.0) pg MCHC 31.8 (31.0-37.0) g/dL RDW 13.3 (11.5-15.5) % Plt Count 221 (150-450) k/uL MPV 10.1 Neutrophils % 72 % Lymphocytes % 16 % Monocytes % 8 % Eosinophils % 2 % Basophils % 1 % Neutrophils # 5.1 (1.3-7.7) k/uL Lymphocytes # 1.1 (1.0-4.8) k/uL Monocytes # 0.6 (0-1.0) k/uL Eosinophils # 0.1 (0-0.7) k/uL Basophils # 0.1 (0-0.2) k/uL PT 11.2 (9.0-12.0) sec INR 1.0 (<1.2) APTT 22.7 (22.0-30.0) sec Sodium 137 (137-145) mmol/L Potassium 3.8 (3.5-5.1) mmol/L Chloride 103 (98-107) mmol/L Carbon Dioxide 24 (22-30) mmol/L Anion Gap 10 mmol/L BUN 34 H (9-20) mg/dL Creatinine 1.68 H (0.66-1.25) mg/dL Est GFR (CKD-EPI)AfAm 53 (>60 ml/min/1.73 sqM) Est GFR (CKD-EPI)NonAf 46 (>60 ml/min/1.73 sqM) Glucose 129 H (74-99) mg/dL Plasma Lactic Acid Steve (0.7-2.0) mmol/L Calcium 8.8 (8.4-10.2) mg/dL Total Bilirubin 1.0 (0.2-1.3) mg/dL AST 33 (17-59) U/L ALT 33 (4-49) U/L Alkaline Phosphatase 89 (38-126) U/L Troponin I (0.000-0.034) ng/mL NT-Pro-B Natriuret Pep pg/mL Total Protein 8.7 H (6.3-8.2) g/dL Albumin 4.0 (3.5-5.0) g/dL Urine Color Urine Appearance (Clear) Urine pH (5.0-8.0) Ur Specific [place] (1.001-1.035) Urine Protein (Negative) Urine Glucose (UA) (Negative) Urine Ketones (Negative) Urine Blood (Negative) Urine Nitrite (Negative) Urine Bilirubin (Negative) Urine Urobilinogen (<2.0) mg/dL Ur Leukocyte Esterase (Negative) 02/20/22 02/20/22 02/20/22 Range/Units 06:08 06:08 06:08 WBC (3.8-10.6) k/uL RBC (4.30-5.90) m/uL Hgb (13.0-17.5) gm/dL Hct (39.0-53.0) % MCV (80.0-100.0) fL MCH (25.0-35.0) pg MCHC (31.0-37.0) g/dL RDW (11.5-15.5) % Plt Count (150-450) k/uL MPV Neutrophils % % Lymphocytes % % Monocytes % % Eosinophils % % Basophils % % Neutrophils # (1.3-7.7) k/uL Lymphocytes # (1.0-4.8) k/uL Monocytes # (0-1.0) k/uL Eosinophils # (0-0.7) k/uL Basophils # (0-0.2) k/uL PT (9.0-12.0) sec INR (<1.2) APTT (22.0-30.0) sec Sodium (137-145) mmol/L Potassium (3.5-5.1) mmol/L Chloride (98-107) mmol/L Carbon Dioxide (22-30) mmol/L Anion Gap mmol/L BUN (9-20) mg/dL Creatinine (0.66-1.25) mg/dL Est GFR (CKD-EPI)AfAm (>60 ml/min/1.73 sqM) Est GFR (CKD-EPI)NonAf (>60 ml/min/1.73 sqM) Glucose (74-99) mg/dL Plasma Lactic Acid Steve 1.3 (0.7-2.0) mmol/L Calcium (8.4-10.2) mg/dL Total Bilirubin (0.2-1.3) mg/dL AST (17-59) U/L ALT (4-49) U/L Alkaline Phosphatase (38-126) U/L Troponin I 0.545 H* (0.000-0.034) ng/mL NT-Pro-B Natriuret Pep 7200 pg/mL Total Protein (6.3-8.2) g/dL Albumin (3.5-5.0) g/dL Urine Color Urine Appearance (Clear) Urine pH (5.0-8.0) Ur Specific [place] (1.001-1.035) Urine Protein (Negative) Urine Glucose (UA) (Negative) Urine Ketones (Negative) Urine Blood (Negative) Urine Nitrite (Negative) Urine Bilirubin (Negative) Urine Urobilinogen (<2.0) mg/dL Ur Leukocyte Esterase (Negative) 02/20/22 Range/Units 07:14 WBC (3.8-10.6) k/uL RBC (4.30-5.90) m/uL Hgb (13.0-17.5) gm/dL Hct (39.0-53.0) % MCV (80.0-100.0) fL MCH (25.0-35.0) pg MCHC (31.0-37.0) g/dL RDW (11.5-15.5) % Plt Count (150-450) k/uL MPV Neutrophils % % Lymphocytes % % Monocytes % % Eosinophils % % Basophils % % Neutrophils # (1.3-7.7) k/uL Lymphocytes # (1.0-4.8) k/uL Monocytes # (0-1.0) k/uL Eosinophils # (0-0.7) k/uL Basophils # (0-0.2) k/uL PT (9.0-12.0) sec INR (<1.2) APTT (22.0-30.0) sec Sodium (137-145) mmol/L Potassium (3.5-5.1) mmol/L Chloride (98-107) mmol/L Carbon Dioxide (22-30) mmol/L Anion Gap mmol/L BUN (9-20) mg/dL Creatinine (0.66-1.25) mg/dL Est GFR (CKD-EPI)AfAm (>60 ml/min/1.73 sqM) Est GFR (CKD-EPI)NonAf (>60 ml/min/1.73 sqM) Glucose (74-99) mg/dL Plasma Lactic Acid Steve (0.7-2.0) mmol/L Calcium (8.4-10.2) mg/dL Total Bilirubin (0.2-1.3) mg/dL AST (17-59) U/L ALT (4-49) U/L Alkaline Phosphatase (38-126) U/L Troponin I (0.000-0.034) ng/mL NT-Pro-B Natriuret Pep pg/mL Total Protein (6.3-8.2) g/dL Albumin (3.5-5.0) g/dL Urine Color Yellow Urine Appearance Clear (Clear) Urine pH 5.5 (5.0-8.0) Ur Specific [place] 1.027 (1.001-1.035) Urine Protein Trace H (Negative) Urine Glucose (UA) Negative (Negative) Urine Ketones Negative (Negative) Urine Blood Negative (Negative) Urine Nitrite Negative (Negative) Urine Bilirubin Negative (Negative) Urine Urobilinogen 2.0 (<2.0) mg/dL Ur Leukocyte Esterase Negative (Negative) Disposition Clinical Impression: NSTEMI (non-ST elevated myocardial infarction), CHF (congestive heart failure), Weakness Disposition: ADMITTED IP TO THIS [facility] Condition: Fair Referrals: Ran Arboleda MD [Primary Care Provider] - 1-2 days
[2022-02-20 07:44] LABS: Appearance,Urine Clear (Clear); Bilirubin,Urine Negative (Negative); Blood,Urine Negative (Negative); Color,Urine Yellow; Glucose,Urine (UA) Negative (Negative); Ketones,Urine Negative (Negative); Leukocyte Esterase,Urine Negative (Negative); Nitrite,Urine Negative (Negative); PH, Urine 5.5 (5.0-8.0); Protein,Urine Trace (Negative); Specific Gravity,Urine 1.027 (1.001-1.035)
[2022-02-20] MEDS ORDERED: NITROGLYCERIN SL TABS 0.4 MG TAB SUBLINGUAL PRN (09:01)
--- NOTE | 2022-02-20 12:44 | P.HPIM ---
History of Present Illness Chief Complaint: weakness Patient is a 56-year-old male with a past medical history significant for congestive heart failure with reduced ejection fraction, GERD, rheumatoid arthritis, seizure disorder the presents a hospital secondary to weakness and lethargy. Patient is scheduled for AICD with cardiology. He denies any active chest pain, shortness of breath or palpitations. He lives at home by himself and states that he's been eating and drinking adequately. He does have good muscle strength in his lower extremities. CBC and BMP reviewed. Cardiac troponins found to be elevated 0.54 and 0.480. ProBNP 7200. Creatinine 1.68. Vital signs are stable patient's side saturating on room air and normotensive. Past medical history significant as above Social history she denies any alcohol dependence, smoking approximately 12 years and stopped Family history father of metastatic cancer Review of systems 10 point review of systems completely negative except as above. Past Medical History Past Medical History: Heart Failure, GERD/Reflux, Rheumatoid Arthritis (RA), Seizure Disorder Additional Past Medical History / Comment(s): CHF-pt to have AICD 03/14/22, Last seizure 2 years ago. Pt placed on antibiotic d/t upper respiratory tract infection on 02/09/22 History of Any Multi-Drug Resistant Organisms: None Reported Past Surgical History: No Surgical Hx Reported Additional Past Surgical History / Comment(s): Injury to lower back that caused a "lump" which was removed, conolonscopy Past Anesthesia/Blood Transfusion Reactions: No Reported Reaction Past Psychological History: Depression Smoking Status: Former smoker Past Alcohol Use History: None Reported Past Drug Use History: None Reported - Past Family History Father Family Medical History: Cancer Additional Family Medical History / Comment(s): Father from metastatic cancer/primary unknown Mother Family Medical History: Osteoarthritis (OA) Medications and Allergies Home Medications Medication Instructions Recorded Confirmed Type Fluticasone Nasal [place] [Flonase 2 spr EA NOSTRIL DAILY 02/10/22 02/20/22 History Nasal [place]] Furosemide [Lasix] 40 mg PO DAILY #30 tab 02/10/22 02/20/22 Rx Losartan [Cozaar] 50 mg PO HS 02/10/22 02/20/22 History Pantoprazole [Protonix] 40 mg PO W/LUNCH 02/10/22 02/20/22 History Potassium Chloride [Potassium 10 meq PO DAILY 02/10/22 02/20/22 History Chloride ER] Spironolactone [Aldactone] 50 mg PO DAILY 02/10/22 02/20/22 History carBAMazepine [Carbatrol] 600 mg PO BID 02/10/22 02/20/22 History carvediloL [Coreg] 6.25 mg PO HS 02/10/22 02/20/22 History carvediloL [Coreg] 12.5 mg PO DAILY 02/10/22 02/20/22 History Sertraline [Zoloft] 25 - 50 mg PO DAILY 02/20/22 02/20/22 History Spironolactone [Aldactone] 25 mg PO HS 02/20/22 02/20/22 History Allergies Allergy/AdvReac Type Severity Reaction Status Date / Time cheese Allergy Unknown Verified 02/20/22 09:10 Penicillins Allergy Rash/Hives Verified 02/20/22 09:10 on entire body Physical Exam Vitals: Vital Signs Temp Pulse Resp BP Pulse Ox 02/20/22 07:58 98.1 F 80 18 111/77 97 02/20/22 07:14 98 18 111/71 96 02/20/22 06:48 87 18 107/74 97 02/20/22 06:13 84 18 107/74 97 02/20/22 05:19 97.8 F 85 16 107/78 97 Intake and Output 02/19/22 02/20/22 02/20/22 22:59 06:59 14:59 Other: Weight 86.183 kg Gen. patient is awake alert oriented 3 Cardio normal S1/S2 Respiratory bilateral air entry no wheezing or rhonchi appreciated Neuro awake alert oriented 3 Psych good mood. Results CBC & Chem 7: 02/20/22 06:08 02/20/22 06:08 Labs: Abnormal Lab Results - Last 24 Hours (Table) 02/20/22 02/20/22 02/20/22 Range/Units 06:08 06:08 07:14 BUN 34 H (9-20) mg/dL Creatinine 1.68 H (0.66-1.25) mg/dL Glucose 129 H (74-99) mg/dL Troponin I 0.545 H* (0.000-0.034) ng/mL Total Protein 8.7 H (6.3-8.2) g/dL Urine Protein Trace H (Negative) 02/20/22 Range/Units 10:31 BUN (9-20) mg/dL Creatinine (0.66-1.25) mg/dL Glucose (74-99) mg/dL Troponin I 0.480 H* (0.000-0.034) ng/mL Total Protein (6.3-8.2) g/dL Urine Protein (Negative) Assessment and Plan Assessment: Assessment: #1 congestive heart failure with reduced ejection fraction 20% NYHA III stage C #2 elevated cardiac troponin most likely demand ischemia #3 hyperlipidemia #4 seizure disorder #5 GERD #6 rheumatoid arthritis #7 chronic kidney disease Plan: -Admit to medicine for close monitoring -Aspiration/fall precaution -PT/OT -Cardio consulted for continuity is a patient scheduled for AICD placement. -Strict input/output, low sodium diet, fluid interstitial less than 1.4 L. -EKG reviewed -DVT prophylaxis heparin 3 times a day
[2022-02-20] MEDS ORDERED: SPIRONOLACTONE 25 MG TAB PO SCH (13:00)
[2022-02-20] MEDS: FLUTICASONE 50MCG/SPRAY NASAL 16GM EA NOSTRIL SCH (13:08)
[2022-02-20] MEDS: carBAMazepine 300 MG CPMP.12HR PO SCH ×2 (13:08→20:32)
[2022-02-20] MEDS: FUROSEMIDE 40 MG TAB PO SCH (13:08)
[2022-02-20] MEDS: PANTOPRAZOLE 40 MG TABLET PO SCH (14:35)
[2022-02-20] MEDS: carvediloL 6.25 MG TAB PO SCH (20:32)
[2022-02-20] MEDS: SPIRONOLACTONE 25 MG TAB PO SCH (20:33)
[2022-02-20] MEDS ORDERED: carBAMazepine 300 MG CPMP.12HR PO SCH (21:00)
[2022-02-20] MEDS ORDERED: LOSARTAN 50 MG TAB PO SCH (21:00)
[2022-02-21] MEDS: carvediloL 12.5 MG TAB PO SCH (06:35)
[2022-02-21] MEDS: FLUTICASONE 50MCG/SPRAY NASAL 16GM EA NOSTRIL SCH (08:59)
[2022-02-21] MEDS ORDERED: ASPIRIN 325 MG TAB PO SCH (09:00)
[2022-02-21] MEDS ORDERED: FUROSEMIDE 40 MG TAB PO SCH (09:00)
[2022-02-21] MEDS ORDERED: FLUTICASONE 50MCG/SPRAY NASAL 16GM EA NOSTRIL SCH (09:00)
[2022-02-21] MEDS ORDERED: SPIRONOLACTONE 25 MG TAB PO SCH (09:00)
[2022-02-21] MEDS: carBAMazepine 300 MG CPMP.12HR PO SCH ×2 (09:53→21:06)
[2022-02-21] MEDS: FUROSEMIDE 40 MG TAB PO SCH (09:54)
[2022-02-21] MEDS: PANTOPRAZOLE 40 MG TABLET PO SCH (12:07)
--- NOTE | 2022-02-21 12:10 | P.CRDCN ---
History of Present Illness History of present illness: HISTORY OF PRESENTING ILLNESS This is a pleasant 56-year-old male past medical history significant for nonischemic cardiomyopathy, congestive heart failure, left bundle branch block, seizure disorder. She follows in the office with Dr. Ramsey. We have been asked to see in consultation for elevated troponin. Patient presents emergency department with complaints of generalized weakness for the past few days. He denies any chest pain, shortness of breath, dizziness, syncope or near syncope, palpitations, nausea, or vomiting. Troponins were drawn in the ER and were 0.54, 0.48, 0.44. Patient has chronically elevated troponins. Patient was recently in the hospital for 02/10/22 and 02/14/2022 for congestive heart failure. Patient was stabilized and discharged home on 02/16/2022 Lasix 40mg Daily PO. He states he is taking his medications at home. He was referred to Dr. May for AICD i mplantation and plan for BiV ICD implantation on 03/14/2022. DIAGNOSTICS -EKG reveals sinus rhythm, heart rate 83, very wide QRS, left bundle branch block -Telemetry tracings indicate sinus mechanism -Chest xray moderate cardiomegaly similar to old exam. No heart failure seen. -Laboratory reviewed, troponin 0.054, 0.048, 0.044, sodium 137, potassium 3.8, BUN 34, serum creatinine 1.68, CBC unremarkable. -Current cardiac medications include carvedilol 6.25 mg nightly, 12.5 mg daily, Aldactone 25 mg nightly and 50 mg daily and losartan 50 mg nightly, Lasix 40 mg daily -Echocardiogram 02/16/2020 revealed an EF less than 20%, severely dilated left ventricle with global decrease in contractility. There is no evidence of any thrombus. Moderate mitral regurgitation. Right-sided pressures are elevated significantly up to 70 mmHg -Cardiac catheterization in 1993 revealed normal coronary arteries. -Lexiscan stress test 07/2018 revealed EF less than 25%, anterior septal and inferior fixed defect. Probable nonischemic cardiomyopathy. 6 dilatation of left ventricle noted with global decreased contractility. REVIEW OF SYSTEMS At the time of my exam: CONSTITUTIONAL: Denies fever or chills. CARDIOVASCULAR: Denies chest pain, shortness of breath, orthopnea, PND or palpitations. RESPIRATORY: Denies cough. GASTROINTESTINAL: Denies abdominal pain, diarrhea, constipation, nausea or vomiting. MUSCULOSKELETAL: Denies myalgias. NEUROLOGIC: Denies numbness, tingling, headacbe or weakness. ENDOCRINE: Denies fatigue, weight change, polydipsia or polyurina. GENITOURINARY: Denies burning, hematuria or urgency with micturation. HEMATOLOGIC: Denies history of anemia or bleeding. PHYSICAL EXAMINATION Blood pressure 88/53 HR 65 afebrile 100% room air CONSTITUTIONAL: No apparent distress. HEENT: Head is normocephalic. Pupils are equal, round. Sclerae anicteric. Mucous membranes of the mouth are moist. No JVD. No carotid bruit. CHEST EXAMINATION: Lungs are clear to auscultation. No chest wall tenderness is noted on palpation or with deep breathing. HEART EXAMINATION: Regular rate and rhythm. S1, S2 heard. Systolic ejection murmur noted. ABDOMEN: Soft, nontender. Positive bowel sounds. EXTREMITIES: 2+ peripheral pulses, trace bilateral lower extremity edema and no calf tenderness. NEUROLOGIC EXAMINATION: Patient is awake, alert and oriented x3. ASSESSMENT Generalized weakness Elevated troponin, chronic due to heart failure Chronic heart failure with reduced ejection fraction Chronic kidney disease stage III Hypotension Non-ischemic cardiomyopathy Left bundle branch block PLAN Decrease Losartan 25mg daily Continue Spironlactone 25mg daily, discontinue 50mg ordered Continue carvedilol 6.25 mg nightly, 12.5 mg daily Continue PO Lasix 40mg daily Monitor for 24 hours Hopefully discharge in the next 24 hours. Close follow up outpatient Plan for BiV ICD with Dr. May on 03/14/22 Nurse practitioner note has been reviewed by physician. Signing provider agrees with the documented findings, assessment, and plan of care. Past Medical History Past Medical History: Heart Failure, GERD/Reflux, Rheumatoid Arthritis (RA), Seizure Disorder Additional Past Medical History / Comment(s): CHF-pt to have AICD 03/14/22, Last seizure 2 years ago. Pt placed on antibiotic d/t upper respiratory tract infection on 02/09/22 History of Any Multi-Drug Resistant Organisms: None Reported Past Surgical History: No Surgical Hx Reported Additional Past Surgical History / Comment(s): Injury to lower back that caused a "lump" which was removed, conolonscopy Past Anesthesia/Blood Transfusion Reactions: No Reported Reaction Past Psychological History: Depression Smoking Status: Former smoker Past Alcohol Use History: None Reported Past Drug Use History: None Reported - Past Family History Father Family Medical History: Cancer Additional Family Medical History / Comment(s): Father from metastatic cancer/primary unknown Mother Family Medical History: Osteoarthritis (OA) Medications and Allergies Home Medications Medication Instructions Recorded Confirmed Type Fluticasone Nasal [place] [Flonase 2 spr EA NOSTRIL DAILY 02/10/22 02/20/22 History Nasal [place]] Furosemide [Lasix] 40 mg PO DAILY #30 tab 02/10/22 02/20/22 Rx Losartan [Cozaar] 50 mg PO HS 02/10/22 02/20/22 History Pantoprazole [Protonix] 40 mg PO W/LUNCH 02/10/22 02/20/22 History Potassium Chloride [Potassium 10 meq PO DAILY 02/10/22 02/20/22 History Chloride ER] Spironolactone [Aldactone] 50 mg PO DAILY 02/10/22 02/20/22 History carBAMazepine [Carbatrol] 600 mg PO BID 02/10/22 02/20/22 History carvediloL [Coreg] 6.25 mg PO HS 02/10/22 02/20/22 History carvediloL [Coreg] 12.5 mg PO DAILY 02/10/22 02/20/22 History Sertraline [Zoloft] 25 - 50 mg PO DAILY 02/20/22 02/20/22 History Spironolactone [Aldactone] 25 mg PO HS 02/20/22 02/20/22 History Allergies Allergy/AdvReac Type Severity Reaction Status Date / Time cheese Allergy Unknown Verified 02/20/22 09:10 Penicillins Allergy Rash/Hives Verified 02/20/22 09:10 on entire body Physical Exam Vitals: Vital Signs Temp Pulse Resp BP BP Pulse Ox 02/21/22 08:00 98.4 F 65 17 88/53 100 02/21/22 04:00 97.8 F 66 16 89/62 98 02/21/22 02:00 63 18 02/21/22 00:00 98.2 F 63 18 88/57 97 02/20/22 20:00 67 18 02/20/22 19:51 98.0 F 67 18 96/64 96 02/20/22 16:00 98.0 F 80 17 110/64 97 02/20/22 14:00 89 17 Intake and Output 02/20/22 02/21/22 02/21/22 22:59 06:59 14:59 Intake Total 118 Output Total 375 Balance -375 118 Intake: Oral 118 Output: Urine 375 Other: Voiding Method Toilet Toilet Urinal Urinal # Voids 4 Weight 87.1 kg Results 02/20/22 06:08 02/20/22 06:08 Cardiac Enzymes 02/20/22 02/20/22 Range/Units 10:31 12:56 Troponin I 0.480 H* 0.446 H* (0.000-0.034) ng/mL Current Medications Generic Name Dose Route Start Last Admin Trade Name Freq PRN Reason Stop Dose Admin Aspirin 325 mg 02/21/22 09:00 02/21/22 09:53 Aspirin 325 Mg Tab PO 325 mg DAILY [place] Administration Carbamazepine 600 mg 02/20/22 12:50 02/21/22 09:53 Carbamazepine 300 Mg Cpmp.12hr PO 600 mg BID [place] Administration Carvedilol 6.25 mg 02/20/22 21:00 02/20/22 20:32 Carvedilol 6.25 Mg Tab PO 6.25 mg HS [facility] Administration Carvedilol 12.5 mg 02/21/22 07:30 02/21/22 06:35 Carvedilol 12.5 Mg Tab PO 12.5 mg [id number] [place] Administration Fluticasone Propionate 2 spray 02/20/22 12:51 02/21/22 08:59 Fluticasone 50mcg/[place] Nasal 16gm EA NOSTRIL Not Given DAILY [facility] Furosemide 40 mg 02/20/22 13:00 02/21/22 09:54 Furosemide 40 Mg Tab PO 40 mg DAILY [place] Administration Heparin Sodium (Porcine) 5,000 unit 02/21/22 16:00 Heparin Sodium,Porcine/Pf 5,000 Unit/0.5 Ml Syringe SQ Q8HR [facility] Losartan Potassium 25 mg 02/21/22 21:00 Losartan 25 Mg Tab PO HS [place] Nitroglycerin 0.4 mg 02/20/22 09:01 Nitroglycerin Sl Tabs 0.4 Mg Tab SUBLINGUAL Q5M PRN Chest Pain Pantoprazole Sodium 40 mg 02/20/22 14:11 02/20/22 14:35 Pantoprazole 40 Mg Tablet PO 40 mg W/LUNCH [place] Administration Spironolactone 25 mg 02/20/22 21:00 02/20/22 20:33 Spironolactone 25 Mg Tab PO 25 mg HS [place] Administration Intake and Output 02/20/22 02/21/22 02/21/22 22:59 06:59 14:59 Intake Total 118 Output Total 375 Balance -375 118 Intake: Oral 118 Output: Urine 375 Other: Voiding Method Toilet Toilet Urinal Urinal # Voids 4 Weight 87.1 kg 02/20/22 06:08 02/20/22 06:08
[2022-02-21] MEDS ORDERED: PANTOPRAZOLE 40 MG TABLET PO SCH (12:30)
--- NOTE | 2022-02-21 13:34 | P.PN ---
Subjective Patient was examined at bedside today not complaining of any new symptomatology. He denies any shortness of breath, chest pain or palpitations. Family present at bedside all questions have been answered. Objective - Vital Signs Vital signs: Vital Signs Temp 98.4 F 02/21/22 08:00 Pulse 65 02/21/22 08:00 Resp 17 02/21/22 08:00 BP 88/53 02/21/22 08:00 Pulse Ox 100 02/21/22 08:00 Intake & Output 02/20/22 02/21/22 02/21/22 18:59 06:59 18:59 Intake Total 220 118 Output Total 375 Balance 220 -375 118 Weight 86.183 kg 87.1 kg Intake: Oral 220 118 Output: Urine 375 Other: Voiding Method Toilet Toilet Urinal # Voids 4 - Exam Gen. patient is awake alert oriented 3 Cardio normal S1/S2 Respiratory no wheezing or rhonchi appreciated Abdomen soft, nontender Extremity no pitting edema noted Psychiatry patient is good spirits - Labs CBC & Chem 7: 02/20/22 06:08 02/20/22 06:08 Labs: Abnormal Lab Results - Last 24 Hours (Table) 02/20/22 02/20/22 Range/Units 10:31 12:56 Troponin I 0.480 H* 0.446 H* (0.000-0.034) ng/mL Assessment and Plan Assessment: Assessment: #1 congestive heart failure with reduced ejection fraction 20% NYHA III stage C #2 elevated cardiac troponin most likely demand ischemia #3 hyperlipidemia #4 seizure disorder #5 GERD #6 rheumatoid arthritis #7 chronic kidney disease Plan: -Admit to medicine for close monitoring -Aspiration/fall precaution -PT/OT -Patient scheduled for AICD on 03/14/2022 -Adjustments to spironolactone and carvedilol made by cardiology team. -Strict input/output, low sodium diet, fluid interstitial less than 1.4 L. -EKG reviewed -DVT prophylaxis heparin 3 times a day -Anticipate discharge in the next 24 hours most likely.
[2022-02-21] MEDS: HEPARIN SODIUM,PORCINE/PF 5,000 UNIT/0.5 ML SYRINGE SQ SCH ×2 (17:25→23:40)
[2022-02-21] MEDS ORDERED: LOSARTAN 25 MG TAB PO SCH (21:00)
[2022-02-21] MEDS: carvediloL 6.25 MG TAB PO SCH (21:01)
[2022-02-21] MEDS: SPIRONOLACTONE 25 MG TAB PO SCH (21:02)
[2022-02-22 01:31] VITALS: RESP 18
[2022-02-22] MEDS ORDERED: ASPIRIN 81 MG PO SCH (09:00)
[2022-02-22] MEDS: FLUTICASONE 50MCG/SPRAY NASAL 16GM EA NOSTRIL SCH (09:21)
[2022-02-22] MEDS: carBAMazepine 300 MG CPMP.12HR PO SCH (09:21)
[2022-02-22] MEDS: FUROSEMIDE 40 MG TAB PO SCH (09:21)
[2022-02-22] MEDS: carvediloL 12.5 MG TAB PO SCH (09:21)
[2022-02-22] MEDS: HEPARIN SODIUM,PORCINE/PF 5,000 UNIT/0.5 ML SYRINGE SQ SCH (09:21)
[2022-02-22 09:24] VITALS: TEMP 98.3
[2022-02-22 12:47] VITALS: BP 87/59; PULSE 76
[2022-02-22] MEDS: PANTOPRAZOLE 40 MG TABLET PO SCH (12:47)
--- NOTE | 2022-02-22 13:21 | P.DS ---
Providers Date of admission: 02/20/22 09:04 Attending physician: Veronica Marsh DO Consults: 02/20/22 11:00 Consult Physician Routine Consulting Provider: Arie Garcia Consult Reason/Comments: elevated trops Do you want consulting provider notified?: Yes Primary care physician: Ran Arboleda [facility] Course: Patient is a 56-year-old male with a past medical history significant for congestive heart failure with reduced ejection fraction, GERD, rheumatoid arthritis, seizure disorder the presents a hospital secondary to weakness and lethargy. Patient is scheduled for AICD with cardiology. He denies any active chest pain, shortness of breath or palpitations. He lives at home by himself and states that he's been eating and drinking adequately. He does have good muscle strength in his lower extremities. CBC and BMP reviewed. Cardiac troponins found to be elevated 0.54 and 0.480. ProBNP 7200. Creatinine 1.68. Vital signs are stable patient's side saturating on room air and normotensive. Patient was examined at bedside with cardiology and Internal Medicine team. At this time have decreased his blood pressure medication sprinolactone 50 mg to 25 mg carlos and, continue with correg 6.25 and 12.5 daily. Spoke with cardiology team they have cleared patient for discharge. At bedside sister present, denies chest pain, palpitations, nausea, vomiting, pitting edema. He is scheduled for AICD placement in 03/15/22. Patient Condition at Discharge: Fair Plan - Discharge Summary Discharge Rx Participant: No New Discharge Prescriptions: New Aspirin 81 mg PO DAILY 30 Days #30 Losartan [Cozaar] 25 mg PO HS 30 Days #30 tab Continue Fluticasone Nasal [place] [Flonase Nasal [place]] 2 spr EA NOSTRIL DAILY Pantoprazole [Protonix] 40 mg PO W/LUNCH Sertraline [Zoloft] 25 - 50 mg PO DAILY carBAMazepine [Carbatrol] 600 mg PO BID carvediloL [Coreg] 12.5 mg PO DAILY carvediloL [Coreg] 6.25 mg PO HS Potassium Chloride [Potassium Chloride ER] 10 meq PO DAILY Furosemide [Lasix] 40 mg PO DAILY #30 tab Spironolactone [Aldactone] 25 mg PO HS Discontinued Losartan [Cozaar] 50 mg PO HS Spironolactone [Aldactone] 50 mg PO DAILY Discharge Medication List Fluticasone Nasal [place] [Flonase Nasal [place]] 2 spr EA NOSTRIL DAILY 02/10/22 [History] Furosemide [Lasix] 40 mg PO DAILY #30 tab 02/10/22 [Rx] Pantoprazole [Protonix] 40 mg PO W/LUNCH 02/10/22 [History] Potassium Chloride [Potassium Chloride ER] 10 meq PO DAILY 02/10/22 [History] carBAMazepine [Carbatrol] 600 mg PO BID 02/10/22 [History] carvediloL [Coreg] 6.25 mg PO HS 02/10/22 [History] carvediloL [Coreg] 12.5 mg PO DAILY 02/10/22 [History] Sertraline [Zoloft] 25 - 50 mg PO DAILY 02/20/22 [History] Spironolactone [Aldactone] 25 mg PO HS 02/20/22 [History] Aspirin 81 mg PO DAILY 30 Days #30 02/22/22 [Rx] Losartan [Cozaar] 25 mg PO HS 30 Days #30 tab 02/22/22 [Rx] Follow up Appointment(s)/Referral(s): Sylvia Ramsey MD [STAFF PHYSICIAN] - 02/23/22 2:45 pm Ran Arboleda MD [Primary Care Provider] - 03/06/22 5:30 pm () Discharge/Stand Alone Forms: Who Do I Call?, Personal Irrigator Discharge Disposition: HOME SELF-CARE
--- NOTE | 2022-02-22 14:52 | P.PN ---
Subjective This is a pleasant 56-year-old male past medical history significant for nonischemic cardiomyopathy, congestive heart failure, left bundle branch block, seizure disorder. She follows in the office with Dr. Ramsey. We have been asked to see in consultation for elevated troponin. Patient presents emergency department with complaints of generalized weakness for the past few days. He denies any chest pain, shortness of breath, dizziness, syncope or near syncope, palpitations, nausea, or vomiting. Troponins were drawn in the ER and were 0.54, 0.48, 0.44. Patient has chronically elevated troponins. Patient was recently in the hospital for 02/10/22 and 02/14/2022 for congestive heart failure. Patient was stabilized and discharged home on 02/16/2022 Lasix 40mg Daily PO. He states he is taking his medications at home. He was referred to Dr. May for AICD implantation and plan for BiV ICD implantation on 03/14/2022. DIAGNOSTICS -EKG reveals sinus rhythm, heart rate 83, very wide QRS, left bundle branch block -Telemetry tracings indicate sinus mechanism -Chest xray moderate cardiomegaly similar to old exam. No heart failure seen. -Laboratory reviewed, troponin 0.054, 0.048, 0.044, sodium 137, potassium 3.8, BUN 34, serum creatinine 1.68, CBC unremarkable. -Current cardiac medications include carvedilol 6.25 mg nightly, 12.5 mg daily, Aldactone 25 mg nightly and 50 mg daily and losartan 50 mg nightly, Lasix 40 mg daily -Echocardiogram 02/16/2020 revealed an EF less than 20%, severely dilated left ventricle with global decrease in contractility. There is no evidence of any thrombus. Moderate mitral regurgitation. Right-sided pressures are elevated significantly up to 70 mmHg -Cardiac catheterization in 1993 revealed normal coronary arteries. -Lexiscan stress test 07/2018 revealed EF less than 25%, anterior septal and inferior fixed defect. Probable nonischemic cardiomyopathy. 6 dilatation of left ventricle noted with global decreased contractility. 02/22/2022 Patient seen at bedside, no acute distress. He denies any chest pain, shortness breath, lightheadedness, dizziness, palpitations. His vital signs are stable. His blood pressure has slightly improved. Blood pressure 102/66, heart rate 82. PHYSICAL EXAMINATION Vitals reviewed CONSTITUTIONAL: No apparent distress. HEENT: Head is normocephalic. Pupils are equal, round. Sclerae anicteric. Mucous membranes of the mouth are moist. No JVD. No carotid bruit. CHEST EXAMINATION: Lungs are clear to auscultation. No chest wall tenderness is noted on palpation or with deep breathing. HEART EXAMINATION: Regular rate and rhythm. S1, S2 heard. Systolic ejection murmur noted. ABDOMEN: Soft, nontender. Positive bowel sounds. EXTREMITIES: 2+ peripheral pulses, trace bilateral lower extremity edema and no calf tenderness. NEUROLOGIC EXAMINATION: Patient is awake, alert and oriented x3. ASSESSMENT Generalized weakness Elevated troponin, chronic due to heart failure Chronic heart failure with reduced ejection fraction Chronic kidney disease stage III Hypotension Non-ischemic cardiomyopathy Left bundle branch block PLAN Recommend continue dose Losartan 25mg daily Continue Spironlactone 25mg daily, discontinue 50mg ordered Continue carvedilol 6.25 mg nightly, 12.5 mg daily Continue PO Lasix 40mg daily Close follow up outpatient Plan for BiV ICD with Dr. May on 03/14/22 From cardiology perspective, patient stable to be discharged home. Follow-up with Dr. Ramsey outpatient. Patient has appointment tomorrow and 02/23/2022 Nurse practitioner note has been reviewed by physician. Signing provider agrees with the documented findings, assessment, and plan of care. Objective - Vital Signs Vital signs: Vital Signs Temp 98.3 F 02/22/22 12:00 Pulse 76 02/22/22 12:00 Resp 18 02/22/22 12:00 BP 87/59 02/22/22 12:00 Pulse Ox 99 02/22/22 12:00 Intake & Output 02/21/22 02/22/22 02/22/22 18:59 06:59 18:59 Intake Total 818 120 Output Total 780 525 200 Balance 38 -525 -80 Weight 87.4 kg Intake: Oral 818 120 Output: Urine 780 525 200 Other: Voiding Method Toilet Toilet Toilet Urinal Urinal Urinal - Labs CBC & Chem 7: 02/20/22 06:08 02/20/22 06:08
== END 2022-02-22 13:55 | disposition home or self-care (01) ==
LOC: EC 05:12 → 3SCARD 09:04
PROVIDERS: ADMIT Internal Medicine; ATTEND Internal Medicine
DX: I50.22 Chronic systolic (congestive) heart failure (principal); K21.9 Gastro-esophageal reflux disease without esophagitis; G40.909 Epilepsy, unspecified, not intractable, without status epilepticus; M06.9 Rheumatoid arthritis, unspecified; E78.5 Hyperlipidemia, unspecified; I42.8 Other cardiomyopathies; I44.7 Left bundle-branch block, unspecified; N18.30 Chronic kidney disease, stage 3 unspecified; I95.9 Hypotension, unspecified; R17 Unspecified jaundice; F32.A Depression, unspecified; I34.0 Nonrheumatic mitral (valve) insufficiency; Z79.899 Other long term (current) drug therapy; Z71.9 Counseling, unspecified; Z87.891 Personal history of nicotine dependence; Z79.51 Long term (current) use of inhaled steroids; Z88.0 Allergy status to penicillin; Z91.018 Allergy to other foods; Z87.09 Personal history of other diseases of the respiratory system; Z80.9 Family history of malignant neoplasm, unspecified; Z82.61 Family history of arthritis
CPT/HCPCS: 96372; 99285; 36415; 93005; 97161; 97166; 83880; 80053; 83605; 84484; 85025; 85610; 85730; 81003; 71046; G0378 ×3; J1644

== ENCOUNTER 2022-02-27 07:42 | Day surgery (SDC) | payer OTHER ==
[2022-02-24 14:11] VITALS: BMI 23.3
[~2022-02-27 07:42] MED LIST: CLINDAMYCIN 600 MG in SODIUM CHLORIDE 0.9% IRRIG BTL 250 ML IRRIGATION ONE; SODIUM CHLORIDE 0.9% 1,000 ML IV SCH
[2022-02-27] MEDS ORDERED: MIDAZOLAM 2 MG/2 ML VIAL IV STA (08:07)
[2022-02-27] MEDS ORDERED: DEXAMETHASONE SOD PHOSPHATE 4 MG/ML 1 ML VIAL IVP STA (08:07)
[2022-02-27] MEDS ORDERED: ONDANSETRON 4 MG/2 ML VIAL IVP STA (08:07)
[2022-02-27] MEDS ORDERED: MIDAZOLAM 2 MG/2 ML VIAL ONE (09:45)
[2022-02-27] MEDS ORDERED: PROPOFOL 10 MG/ML 20 ML VIAL IV ONE (09:45)
[2022-02-27] MEDS ORDERED: fentaNYL (PF) 50 MCG/ML 2 ML AMP ONE (09:45)
[2022-02-27] MEDS ORDERED: CLINDAMYCIN 900 MG in DEXTROSE 5% IN WATER 50 ML IVPB PRN ×2 (10:00)
[2022-02-27] MEDS ORDERED: IOPAMIDOL-370 50ML BTL INJ ONE (10:11)
[2022-02-27] MEDS ORDERED: LIDOCAINE 1% INJ 10MG/ML (30 ML VIAL-PF) SQ ONE (10:28)
[2022-02-27] MEDS ORDERED: ACETAMINOPHEN IV (For NPO) 1,000 MG in EMPTY BAG 1 BAG IVPB ONE (13:09)
[2022-02-27] MEDS ORDERED: ACETAMINOPHEN TAB 325 MG TAB PO PRN (13:09)
[2022-02-27] MEDS ORDERED: VANCOMYCIN 2,000 MG in SODIUM CHLORIDE 0.9% 500 ML 500 ML IVPB STA (13:10)
[2022-02-27] MEDS ORDERED: ACETAMINOPHEN IV (For NPO) 1,000 MG in EMPTY BAG 1 BAG IVPB STA (13:12)
--- NOTE | 2022-02-27 13:13 | P.EPPROC ---
- EP Procedure Note Electrophysiology Procedure Note: Diagnosis Severe nonischemic cardio myopathy wide QRS of a left bundle branch block type almost 200 ms, chronic systolic heart failure on cardio entity medical treatment Procedure LV/ biventricular ICD implantation Details Patient was brought to the EP lab in a fasting state. Written informed consent was obtained prior to the procedure. Conscious sedation provided by anesthesia team Prior to the procedure the patient was complaining of a history of nausea with anesthesia drugs to anesthesia. IV dexamethasone 4 mg administered in the preoperative area IV antibiotics administered. Local anesthesia administered. A 4 cm incision made in the pectoral area. Subfascial pocket made. Venous access obtained Venous sheaths placed. Leads placed in the right heart Atrial lead position the right atrial appendage. , Medtronic lead P waves 1.6 mV, pacing impedance 456 ohms, threshold 1.25 V at 0.4 ms Right atrial appendage position RV lead position in the RV septum, single coil [employer]tron[employer] Pacing impedance 456 ohms, pacing threshold 1.25 V at 0.4 ms No underlying rhythm post pacing. LV lead positioned in the LV vein, anterior Screw-in LV lead Pacing impedance 855 ohms, pacing threshold 1.5 V at 0.4 ms Biventricular icd device connected to the leads and placed in the subfascial pocket Medtronic Adaptive Bi V pacing Patient tolerance the procedure well without acute complications
[2022-02-27] MEDS ORDERED: VANCOMYCIN 1,500 MG in SODIUM CHLORIDE 0.9% 250 ML IVPB ONE (13:15)
[2022-02-27 14:43] VITALS: RESP 18
[2022-02-27] MEDS ORDERED: PANTOPRAZOLE 40 MG TABLET PO PRN (15:18)
[2022-02-27] MEDS ORDERED: SPIRONOLACTONE 25 MG TAB PO SCH (17:30)
[2022-02-27] MEDS ORDERED: carvediloL 6.25 MG TAB PO SCH (17:30)
[2022-02-27] MEDS: carBAMazepine 300 MG CPMP.12HR PO SCH (17:55)
--- NOTE | 2022-02-27 18:55 | XR ---
EXAMINATION TYPE: XR chest 1V portable DATE OF EXAM: 02/27/2022 COMPARISON: 02/20/2022 HISTORY: Check placement TECHNIQUE: Single view FINDINGS: Heart is enlarged. No heart failure. There is left axillary pacemaker. There is no pleural effusion. There are no hilar masses. Costophrenic angles are clear. IMPRESSION: Cardiomegaly. No active cardiopulmonary disease. Normal heart. No change.
[2022-02-27] MEDS ORDERED: LOSARTAN 25 MG TAB PO SCH (21:00)
[2022-02-28 07:07] VITALS: BP 106/66; PULSE 49; TEMP 98.3
[2022-02-28] MEDS ORDERED: SERTRALINE 25 MG TAB PO SCH (07:30)
[2022-02-28] MEDS ORDERED: ASPIRIN 81 MG PO SCH (07:30)
[2022-02-28] MEDS ORDERED: FUROSEMIDE 40 MG TAB PO SCH (07:30)
[2022-02-28] MEDS ORDERED: POTASSIUM CHLORIDE ER 10 MEQ TAB.ER.PRT PO SCH (07:30)
[2022-02-28] MEDS: carBAMazepine 300 MG CPMP.12HR PO SCH (07:56)
--- NOTE | 2022-02-28 08:51 | P.DS ---
Providers Attending physician: Darien May Primary care physician: Peter Bent Brigh[facility] Hospital Course: The patient is a 56-year-old male who follows in the office of Dr. LUIZ Ramsey. The patient underwent biventricular ICD implantation for severe nonischemic cardiomyopathy on 02/27/[address] May. The patient was interviewed and examined sitting comfortably in bed. The patient states he did well overnight. Mild discomfort around the surgical site. Patient was instructed to wear the sling at bedtime only. He may move his arm during the day, however he should restrict overhead movement. GENERAL: Well-appearing, well-nourished and in no acute distress. NECK: Supple without JVD or thyromegaly. LUNGS: Breath sounds clear to auscultation bilaterally. Respiration equal and unlabored. No wheezes, rales or rhonchi. HEART: Regular rate and rhythm without murmurs, rubs or gallops. S1 and S2 heard. EXTREMITIES: Left arm in sling, no edema. No clubbing or cyanosis. Peripheral pulses intact and strong. Shadowing noted along surgical dressing. IMPRESSION: Nonischemic cardiomyopathy Left bundle branch block Status post biventricular ICD implantation PLAN: No change in cardiac medication regimen Follow-up in device clinic in 1 week Follow-up with primary director of public safety Dr. LUIZ Ramsey in 2 weeks I am dictating on behalf of Dr Darien May's history/physical and assessment/plan. Plan - Discharge Summary Discharge Rx Participant: No New Discharge Prescriptions: Continue Pantoprazole [Protonix] 40 mg PO W/LUNCH PRN PRN Reason: Stomach pain Losartan [Cozaar] 25 mg PO HS 30 Days #30 tab Sertraline [Zoloft] 25 mg PO W/BRKFST Furosemide [Lasix] 40 mg PO W/BRKFST Aspirin 81 mg PO W/BRKFST carBAMazepine [Carbatrol] 600 mg PO BID-W/MEALS carvediloL [Coreg] 12.5 mg PO AC-BRKFST carvediloL [Coreg] 6.25 mg PO W/SUPPER Potassium Chloride [Potassium Chloride ER] 10 meq PO W/BRKFST Spironolactone [Aldactone] 25 mg PO W/SUPPER Discharge Medication List Pantoprazole [Protonix] 40 mg PO W/LUNCH PRN 02/10/22 [History] Potassium Chloride [Potassium Chloride ER] 10 meq PO W/BRKFST 02/10/22 [History] carBAMazepine [Carbatrol] 600 mg PO BID-W/MEALS 02/10/22 [History] carvediloL [Coreg] 6.25 mg PO W/SUPPER 02/10/22 [History] carvediloL [Coreg] 12.5 mg PO AC-BRKFST 02/10/22 [History] Spironolactone [Aldactone] 25 mg PO W/SUPPER 02/20/22 [History] Losartan [Cozaar] 25 mg PO HS 30 Days #30 tab 02/22/22 [Rx] Aspirin 81 mg PO W/BRKFST 02/24/22 [History] Furosemide [Lasix] 40 mg PO W/BRKFST 02/24/22 [History] Sertraline [Zoloft] 25 mg PO W/BRKFST 02/24/22 [History] Follow up Appointment(s)/Referral(s): Sylvia Ramsey MD [STAFF PHYSICIAN] - 1 Week (Device clinic follow-up in one week Follow-up with Dr. Ramsey as previously scheduled) Activity/Diet/Wound Care/Special Instructions: PATIENT EDUCATION MATERIAL Instructions following a heart rhythm device implant. 1. Keep dressing DRY for 5 DAYS. You may cover the area with Saran or Cling Wrap, prior to a shower. 2. The dressing will be removed in the Device Clinic at [facility]. Absorbable sutures were used to close the wound. 3. Avoid raising the left arm above the shoulder level. 4 week restriction 4. Avoid arm movements, like backscratching, rubbing the head, or pulling on a cord. 4 weeks restriction 5. Gentle range of motion movements of the shoulder, closest to the incision should be performed to avoid a frozen shoulder. (Pendulum exercises of the shoulder) 6. The opposite arm may be used freely. 7. Avoid driving for 7 days. 8. Avoid activities such as golfing, swimming, weed whacking, lifting more than 10 pounds weight, bowling, gymnastics and weight training/lifting. (6 weeks restriction) 9. Activities such as wood chopping with an axe, pull-ups in the gymnasium, power lifting, arc-welding, being close to home induction cooktops will always be a problem. 10. Arm sling is only a reminder not to raise the arm above the head. You do not need to keep the arm completely immobilized. Your free to move the arm and use it and for normal activities. In case of any problems, please call [facility], Mulugeta Garcia, @ [phone], Attention: Device Clinic Device clinic follow-up in 5 days Follow-up with primary director of public safety in 2-3 months Discharge Disposition: HOME SELF-CARE
== END 2022-02-28 13:40 | disposition home or self-care (01) ==
LOC: CATHEP 07:42 → 6NMEDSUR 13:57 → CATHEP 02-28 13:40
PROVIDERS: ATTEND Internal Medicine Clinical Cardiac Electrophysiology
DX: I44.7 Left bundle-branch block, unspecified (principal); I42.8 Other cardiomyopathies; I11.0 Hypertensive heart disease with heart failure; Z20.822 Contact with and (suspected) exposure to COVID-19; I50.22 Chronic systolic (congestive) heart failure; Z72.0 Tobacco use; Z79.899 Other long term (current) drug therapy; Z88.0 Allergy status to penicillin
CPT/HCPCS: 33225; 33249; 87635; 71045; C1769 ×5; C1882; C1892 ×2; C1730; C1887; C1898; C1895; J2250; J3370; J1100; J2405; J2001; J3010; J2704; Q9967

== ENCOUNTER 2022-07-03 08:04 | Day surgery (SDC) | payer OTHER ==
[2022-06-30 11:09] VITALS: BMI 23.8
[~2022-07-03 08:04] MED LIST changes: -CLINDAMYCIN 600 MG in SODIUM CHLORIDE 0.9% IRRIG BTL 250 ML IRRIGATION ONE; +HYDROmorphone 0.5 MG/0.5 ML SYRINGE IVP PRN; +LACTATED RINGERS 1,000 ML IV SCH; +ONDANSETRON 4 MG/2 ML VIAL IVP ONE
[2022-07-03] MEDS ORDERED: SODIUM CHLORIDE 0.9% 500 ML 500 ML IV ONE (08:39)
[2022-07-03 08:45] VITALS: RESP 16; TEMP 98.2
[2022-07-03 09:36] LABS: Calcium 8.9 mg/dL (8.4-10.2); Potassium 3.9 mmol/L (3.5-5.1)
[2022-07-03] MEDS ORDERED: LIDOCAINE 2% INJ 20 MG/ML (2 ML VIAL) ONE (10:27)
[2022-07-03] MEDS ORDERED: PROPOFOL 10 MG/ML 20 ML VIAL IV ONE (10:27)
--- NOTE | 2022-07-03 11:16 | P.HPCAR ---
History of Present Illness This is Dr. May dictating an H/P on this patient The patient was interviewed and examined IMPRESSION / ASSESSMENT: Severe nonischemic cardiomyopathy with congestive heart failure Status post biventricular ICD 3 months back, [employer] On guide line directed medical treatment PLAN: Defibrillation level testing under conscious sedation Reprogramming ICD accordingly HPI Patient reports an improvement in his heart failure symptoms He is less short of breath with exertion He is able to walk longer distance No syncope ROS: No fever chills or rigors, no cough, phlegm or expectoration, no nausea, vomiting or diarrhea, no hematuria, dysuria, no musculoskeletal complaints, no strokes or seizures, no skin lesions. EXAMINATION: Afebrile 98.2F, pulse rate in the 70s blood pressure 118/65 Breath sounds are clear no rhonchi no crackles Heart sounds is some S2 normal no murmurs no gallops No JVD Orthopnea REVIEW OF LABS, ECG & MEDICAL DATA sodium 138, potassium 3.9 BUN 23 and creatinine 1.2 Physical Exam Vitals: Vital Signs Temp Pulse Resp BP Pulse Ox 07/03/22 08:43 98.2 F 72 16 118/65 97 Intake and Output 07/02/22 07/03/22 07/03/22 22:59 06:59 14:59 Intake Total 150 Balance 150 Intake: IV 150 Other: Weight 90.4 kg Past Medical History Past Medical History: Heart Failure, GERD/Reflux, Rheumatoid Arthritis (RA), Seizure Disorder Additional Past Medical History / Comment(s): See Dr May's H&P. SOB, CHF. Last seizure a long time ago. History of Any Multi-Drug Resistant Organisms: None Reported Past Surgical History: AICD Additional Past Surgical History / Comment(s): Injury to lower back that caused a "lump" which was removed, colonoscopy. Past Anesthesia/Blood Transfusion Reactions: Postoperative Nausea & Vomiting (PONV) Additional Past Anesthesia/Blood Transfusion Reaction / Comment(s): Severe anxiety related to procedure. Type of Cardiac Device: Biventricular Pacemaker Device Placement Date:: 02/27/22 Smoking Status: Former smoker - Past Family History Father Family Medical History: Cancer Additional Family Medical History / Comment(s): Father from metastatic cancer/primary unknown. Mother Family Medical History: Cancer, Osteoarthritis (OA) Additional Family Medical History / Comment(s): Skin cancer. Physical Examination Vital Signs Temp Pulse Resp BP Pulse Ox 07/03/22 08:43 98.2 F 72 16 118/65 97 Intake and Output 07/02/22 07/03/22 07/03/22 22:59 06:59 14:59 Intake Total 150 Balance 150 Intake: IV 150 Other: Weight 90.4 kg Results 07/03/22 09:07 Comprehensive Metabolic Panel 07/03/22 Range/Units 09:07 Sodium 138 (137-145) mmol/L Potassium 3.9 (3.5-5.1) mmol/L Chloride 100 (98-107) mmol/L Carbon Dioxide 27 (22-30) mmol/L BUN 23 H (9-20) mg/dL Creatinine 1.19 (0.66-1.25) mg/dL Glucose 104 H (74-99) mg/dL Calcium 8.9 (8.4-10.2) mg/dL Current Medications Generic Name Dose Route Start Last Admin Trade Name Freq PRN Reason Stop Dose Admin Hydromorphone HCl 0.5 mg 07/03/22 06:29 Hydromorphone 0.5 Mg/0.5 Ml Syringe IVP 07/03/22 23:00 Q5M PRN Phase 1 or 2 - Pain Control Sodium Chloride 1,000 mls @ 50 mls/hr 07/03/22 06:29 Saline 0.9% IV 08/02/22 06:30 .Q20H [place] Lactated Ringer's 1,000 mls @ 20 mls/hr 07/03/22 06:29 Lactated Ringers IV 08/02/22 06:30 .Q24H [place] Intake and Output 07/02/22 07/03/22 07/03/22 22:59 06:59 14:59 Intake Total 150 Balance 150 Intake: IV 150 Other: Weight 90.4 kg Patient Weight 07/04/22 06:59 Weight 90.4 kg 07/03/22 09:07
--- NOTE | 2022-07-03 11:27 | P.EPPROC ---
- EP Procedure Note Electrophysiology Procedure Note: Diagnosis Congestive heart failure, status post [employer] ICD, biventricular Procedure Defibrillation level testing Biventricular ICD interrogation and reprogramming accordingly Details Atrial pacing impedance 513 ohms Atrial pacing threshold 0.8 1.4 ms P waves 3 mV RV pacing impedance 494 ohms, RV coil impedance 64 ohms Pacing threshold 0.9 V at 0.4 ms R waves 12.5 mV LV pacing impedance 893 ohms LV 3-LV 2 pacing threshold 0.8 1.4 ms Defibrillation level testing performed Appropriate and adequate sensing of VF signals Unsuccessful defibrillation at 10 J and 20 J, BX-A Repeated with AX-B Adequate detection of VF signals Successful at 20 J, AX-b Charge time 3.8 seconds Shocking impedance 61 ohms Device was then reprogrammed to the AX-B configuration for shocking First cardioversion at 20 J First defibrillation 35 J Appropriate antitachycardia pacing, cardioversions and defibrillations Chronic pacing parameters set Impression Failed defibrillation in the BX-A configuration Successful in the AX-B configuration at 20 J Plan Defibrillation level testing in 2 years Maximize cardio myopathy medications This was discussed with the patient and his family
[2022-07-03 16:31] VITALS: BP 108/53; PULSE 78
== END 2022-07-03 12:17 | disposition home or self-care (01) ==
LOC: CATHEP 08:04
PROVIDERS: ATTEND Internal Medicine Clinical Cardiac Electrophysiology
DX: I42.8 Other cardiomyopathies (principal); K21.9 Gastro-esophageal reflux disease without esophagitis; M06.9 Rheumatoid arthritis, unspecified; G40.909 Epilepsy, unspecified, not intractable, without status epilepticus; Z87.891 Personal history of nicotine dependence; I11.0 Hypertensive heart disease with heart failure; I50.9 Heart failure, unspecified; Z79.899 Other long term (current) drug therapy; Z20.822 Contact with and (suspected) exposure to COVID-19
CPT/HCPCS: 93642; 80048; 87635; J2704; J2001

== ENCOUNTER 2024-09-11 00:41 | Observation (INO) | payer OTHER ==
--- NOTE | 2024-09-11 01:00 | ED ---
General Adult HPI - General Stated complaint: Syncope Time Seen by Provider: 09/11/24 00:44 Source: patient, RN notes reviewed, old records reviewed - History of Present Illness Initial comments: Patient is a 59-year-old male who presents emergency department for syncopal episode. Patient apparently was standing up and sitting down multiple times this evening and when he stood up on the last time, was in the kitchen when he passed out. Fell backwards and hit his head. Patient does not recall the event but currently has no complaints. Has some abrasions to the back of his scalp. Believes he is up-to-date on tetanus. States he has been experiencing this lately. Has been on Lasix for worsening lower extremity edema. Denies any obvious injuries. He is ANO x 4. Presents for further evaluation. He is not on blood thinners. Does have a history of CHF, gastritis. Patient also has an AICD in place. Presents for further evaluation at this time.Patient denies any orthopnea, worsening shortness of breath, nonproductive cough. - Related Data Home Medications Medication Instructions Recorded Confirmed Pantoprazole [Protonix] 40 mg PO W/LUNCH PRN 02/10/22 06/30/22 Potassium Chloride [Potassium 10 meq PO W/BRKFST 02/10/22 06/30/22 Chloride ER] carBAMazepine [Carbatrol] 600 mg PO BID-W/MEALS 02/10/22 06/30/22 carvediloL [Coreg] 6.25 mg PO W/SUPPER 02/10/22 07/03/22 carvediloL [Coreg] 12.5 mg PO AC-BRKFST 02/10/22 06/30/22 Spironolactone [Aldactone] 25 mg PO W/SUPPER 02/20/22 06/30/22 Furosemide [Lasix] 40 mg PO W/BRKFST 02/24/22 06/30/22 Sertraline [Zoloft] 25 mg PO W/BRKFST 02/24/22 06/30/22 Furosemide [Lasix] 20 mg PO DAILY 06/08/22 06/30/22 Previous Rx's Medication Instructions Recorded Losartan [Cozaar] 25 mg PO HS 30 Days #30 tab 02/22/22 Allergies Allergy/AdvReac Type Severity Reaction Status Date / Time cheese Allergy Unknown Verified 07/03/22 08:37 Penicillins Allergy Rash/Hives Verified 07/03/22 08:37 on entire body Review of Systems ROS Statement: Those systems with pertinent positive or pertinent negative responses have been documented in the HPI. Review of Systems: CONST: Denies fever EYES: Denies blurry vision ENT: Denies nasal congestion C/V: Denies Chest pain RESP: Denies shortness of breath GI: Denies abdominal pain : Denies dysuria SKIN: Denies rash. MSK: Denies joint pain. NEURO: Denies headache ROS Other: All systems not noted in ROS Statement are negative. Past Medical History Past Medical History: Heart Failure, GERD/Reflux, Rheumatoid Arthritis (RA), Seizure Disorder Additional Past Medical History / Comment(s): See Dr May's H&P. SOB, CHF. Last seizure a long time ago. History of Any Multi-Drug Resistant Organisms: None Reported Past Surgical History: AICD Additional Past Surgical History / Comment(s): Injury to lower back that caused a "lump" which was removed, colonoscopy. Past Anesthesia/Blood Transfusion Reactions: Postoperative Nausea & Vomiting (PONV) Additional Past Anesthesia/Blood Transfusion Reaction / Comment(s): Severe anxiety related to procedure. Type of Cardiac Device: Biventricular Pacemaker Device Placement Date:: 02/27/22 Smoking Status: Former smoker - Past Family History Father Family Medical History: Cancer Additional Family Medical History / Comment(s): Father from metastatic cancer/primary unknown. Mother Family Medical History: Cancer, Osteoarthritis (OA) Additional Family Medical History / Comment(s): Skin cancer. General Exam - General Exam Comments Initial Comments: General: Appears in no acute distress. HEAD: Scalp abrasions. Negative Solis sign. Negative raccoon eyes. No active bleeding. EYES: PERRLA, EOMI, conjunctiva normal, no discharge. Pupils 3 mm and equal deven aterally. ENT: Hearing grossly intact, normal oropharynx. RESPIRATORY: Clear breath sounds bilaterally. No wheezes, rales, or rhonchi. C/V: Regular rate and rhythm. S1 and S2 auscultated, significant bilateral lower extremity pitting edema, peripheral pulses 2+ and intact throughout ABD: Abd is soft, nontender, nondistended EXT: Normal range of motion, no obvious deformity. No midline cervical, thoracic, lumbar spine tenderness to palpation. No step-offs or deformities of the spine. Pelvis is stable. SKIN: Superficial abrasions to the posterior scalp. NEURO: Alert and oriented x 4. Cranial nerves II-XII intact. No focal sensory or strength deficits. GCS of 15. Course Vital Signs 09/11/24 09/11/24 01:13 02:31 Temperature 98.3 F Pulse Rate 56 L Pulse Rate [ 62 Sitting] Pulse Rate [ 61 Standing] Pulse Rate [ 57 L Supine] Respiratory 18 Rate Blood Pressure 94/68 Blood Pressure 97/58 [Sitting] Blood Pressure 96/64 [Standing] Blood Pressure 95/65 [Supine] O2 Sat by Pulse 98 Oximetry Medical Decision Making - Medical Decision Making Was pt. sent in by a medical professional or institution (, PA, TOOL SHARPENER, urgent care, hospital, or alf...) When possible be specific @ -No Did you speak to anyone other than the patient for history (EMS, parent, family, police, friend...)? What history was obtained from this source @ -After discussion with patient's mother, it appears this is the third such episode where patient had a syncopal episode. Is all occurred over the last 3 weeks. No other obvious injuries or symptoms. No new medications. Not on blood thinners. Otherwise she corroborates the patient's story. Never had issues like this previously. Did you review nursing and triage notes (agree or disagree)? Why? @ -I reviewed and agree with nursing and triage notes Were old charts reviewed (outside hosp., previous admission, EMS record, old EKG, old radiological studies, urgent care reports/EKG's, alf records)? Report findings @ -Reviewed medical record for patient's medication list which includes Lasix but no blood thinners. Differential Diagnosis (chest pain, altered mental status, abdominal pain women, abdominal pain men, vaginal bleeding, weakness, fever, dyspnea, syncope, headache, dizziness, GI bleed, back pain, seizure, CVA, palpatations, mental health, musculoskeletal)? @ -Syncope, orthostatic hypotension, CHF, electrolyte abnormality, dehydration, infection. This list is not all inclusive. EKG interpreted by me (3pts min.). @ -As above X-rays interpreted by me (1pt min.). @ -Chest x-ray reveals cardiomegaly but no obvious acute cardiopulmonary process. Pelvis x-ray reveals no obvious acute traumatic injury. CT interpreted by me (1pt min.). @ -CT brain and C-spine reveals no obvious acute traumatic process and no obvious acute intracranial traumatic process. CT for pulmonary embolism negative for any obvious central pulmonary embolism. U/S interpreted by me (1pt. min.). @ -None done What testing was considered but not performed or refused? (CT, X-rays, U/S, labs)? Why? @ -None What meds were considered but not given or refused? Why? @ -Consider analgesia medications which were declined as he is in no pain. Considered tetanus booster however patient states he is up-to-date. Did you discuss the management of the patient with other professionals (professionals i.e. , PA, TOOL SHARPENER, lab, RT, psych nurse, licensed master social worker, director surgical, teacher, animal control officer, lining caser)? Give summary @ -No Was smoking cessation discussed for >3mins.? @ -No Was critical care preformed (if so, how long)? @ -No Were there social determinants of health that impacted care today? How? (Homelessness, low income, unemployed, alcoholism, drug addiction, transportation, low edu. Level, literacy, decrease access to med. care, retirement, rehab)? @ -No Was there de-escalation of care discussed even if they declined (Discuss DNR or withdrawal of care, Hospice)? DNR status @ -No What co-morbidities impacted this encounter? (DM, HTN, Smoking, COPD, CAD, Cancer, CVA, ARF, Chemo, Hep., AIDS, mental health diagnosis, sleep apnea, morbid obesity)? @ -None Was patient admitted / discharged? Hospital course, mention meds given and route, prescriptions, significant lab abnormalities, going to OR and other pertinent info. @ -Patient presents emergency department for syncopal episode and fall at home. Patient is not on blood thinners.We will obtain laboratory studies, CT brain and C-spine, as well as chest and pelvis x-ray. Patient has no complaints at this time. Is up-to-date on tetanus. Does not require any wound closures. No active bleeding. Is in no pain. Therefore no medications will be administered. Appears to be mildly volume overloaded and therefore we will avoid IV fluids at this time as vitals are within acceptable limits. Will continue to monitor. We will obtain orthostatic vital signs. Patient was in agreement this plan. Patient's initial imaging negative for any obvious traumatic injury. Laboratory studies remarkable for D-dimer elevated 1.98. Patient has CKD which appears to be at baseline. Troponin is indeterminate at 0.032. BNP is elevated to 11,000. Patient did test positive for COVID. I discussed results with the patient. He was having COVID-like symptoms last week or the week before but intense of cough congestion that is improved. Discussed that we should obtain CT PE as well as DVT ultrasounds and he was in agreement the plan. CT PE returned negative for any obvious central PE which would cause syncopal episodes. I discussed results with the patient. Patient's mother is at bedside as well and helps with medical decisions. Patient will be admitted to observation for cardiology evaluation due to the recurrent episodes of syncope over the last 2 to 3 weeks. We will obtain venous duplex ultrasounds of bilateral lower extremities in the morning. Due to patient's CKD, I did admin ister an additional 500 cc fluid bolus but also administered IV Lasix with it. Home medications reordered. Patient was in agreement this plan. Orthostatic vital signs within normal limits. I discussed the case with Dr. Mirza who accepted the admission. Cardiology consulted. Undiagnosed new problem with uncertain prognosis? @ -No Drug Therapy requiring intensive monitoring for toxicity (Heparin, Nitro, Insulin, Cardizem)? @ -No Were any procedures done? @ -No Diagnosis/symptom? @ -Syncope, COVID-19 infection Acute, or Chronic, or Acute on Chronic? @ -Acute Uncomplicated (without systemic symptoms) or Complicated (systemic symptoms)? @ -Complicated Side effects of treatment? @ -None Exacerbation, Progression, or Severe Exacerbation] @ -No Poses a threat to life or bodily function? @ -Potentially, yes - Lab Data Result diagrams: 09/11/24 00:50 09/11/24 00:50 Lab Results 09/11/24 09/11/24 09/11/24 Range/Units 00:50 00:50 00:50 WBC 4.8 (3.8-10.6) k/uL RBC 3.64 L (4.30-5.90) m/uL Hgb 12.2 L (13.0-17.5) gm/dL Hct 37.5 L (39.0-53.0) % MCV 103.1 H (80.0-100.0) fL MCH 33.5 (25.0-35.0) pg MCHC 32.5 (31.0-37.0) g/dL RDW 15.7 H (11.5-15.5) % Plt Count 161 (150-450) k/uL MPV 10.2 Neutrophils % 73 % Lymphocytes % 13 % Monocytes % 9 % Eosinophils % 3 % Basophils % 1 % Neutrophils # 3.5 (1.3-7.7) k/uL Lymphocytes # 0.6 L (1.0-4.8) k/uL Monocytes # 0.4 (0-1.0) k/uL Eosinophils # 0.1 (0-0.7) k/uL Basophils # 0.0 (0-0.2) k/uL Macrocytosis Moderate PT 13.7 H (10.0-12.5) sec INR 1.3 H (<1.2) APTT 25.9 (22.0-30.0) sec D-Dimer (<0.60) mg/L FEU Sodium 135 L (137-145) mmol/L Potassium 4.7 (3.5-5.1) mmol/L Chloride 105 (98-107) mmol/L Carbon Dioxide 22 (22-30) mmol/L Anion Gap 8 mmol/L BUN 53 H (9-20) mg/dL Creatinine 1.74 H (0.66-1.25) mg/dL Est GFR (CKD-EPI)AfAm 49 (>60 ml/min/1.73 sqM) Est GFR (CKD-EPI)NonAf 43 (>60 ml/min/1.73 sqM) Glucose 131 H (74-99) mg/dL POC Glucose (mg/dL) (70-110) mg/dL POC Glu [employer] ID Calcium 8.3 L (8.4-10.2) mg/dL Magnesium 2.3 (1.6-2.3) mg/dL Total Bilirubin 1.9 H (0.2-1.3) mg/dL AST 22 (17-59) U/L ALT 18 (4-49) U/L Alkaline Phosphatase 193 H (38-126) U/L Troponin I (0.000-0.034) ng/mL NT-Pro-B Natriuret Pep 79975 pg/mL Total Protein 7.0 (6.3-8.2) g/dL Albumin 3.6 (3.5-5.0) g/dL Influenza Type A (PCR) (Not Detectd) Influenza Type B (PCR) (Not Detectd) RSV (PCR) (Not Detectd) SARS-CoV-2 (PCR) (Not Detectd) 09/11/24 09/11/24 09/11/24 Range/Units 00:50 01:07 01:15 WBC (3.8-10.6) k/uL RBC (4.30-5.90) m/uL Hgb (13.0-17.5) gm/dL Hct (39.0-53.0) % MCV (80.0-100.0) fL MCH (25.0-35.0) pg MCHC (31.0-37.0) g/dL RDW (11.5-15.5) % Plt Count (150-450) k/uL MPV Neutrophils % % Lymphocytes % % Monocytes % % Eosinophils % % Basophils % % Neutrophils # (1.3-7.7) k/uL Lymphocytes # (1.0-4.8) k/uL Monocytes # (0-1.0) k/uL Eosinophils # (0-0.7) k/uL Basophils # (0-0.2) k/uL Macrocytosis PT (10.0-12.5) sec INR (<1.2) APTT (22.0-30.0) sec D-Dimer 1.98 H (<0.60) mg/L FEU Sodium (137-145) mmol/L Potassium (3.5-5.1) mmol/L Chloride (98-107) mmol/L Carbon Dioxide (22-30) mmol/L Anion Gap mmol/L BUN (9-20) mg/dL Creatinine (0.66-1.25) mg/dL Est GFR (CKD-EPI)AfAm (>60 ml/min/1.73 sqM) Est GFR (CKD-EPI)NonAf (>60 ml/min/1.73 sqM) Glucose (74-99) mg/dL POC Glucose (mg/dL) 128 H (70-110) mg/dL POC Glu [employer] Manager ID Achatz Blaire Calcium (8.4-10.2) mg/dL Magnesium (1.6-2.3) mg/dL Total Bilirubin (0.2-1.3) mg/dL AST (17-59) U/L ALT (4-49) U/L Alkaline Phosphatase (38-126) U/L Troponin I (0.000-0.034) ng/mL NT-Pro-B Natriuret Pep pg/mL Total Protein (6.3-8.2) g/dL Albumin (3.5-5.0) g/dL Influenza Type A (PCR) Not Detected (Not Detectd) Influenza Type B (PCR) Not Detected (Not Detectd) RSV (PCR) Not Detected (Not Detectd) SARS-CoV-2 (PCR) Detected A (Not Detectd) 09/11/24 Range/Units 01:15 WBC (3.8-10.6) k/uL RBC (4.30-5.90) m/uL Hgb (13.0-17.5) gm/dL Hct (39.0-53.0) % MCV (80.0-100.0) fL MCH (25.0-35.0) pg MCHC (31.0-37.0) g/dL RDW (11.5-15.5) % Plt Count (150-450) k/uL MPV Neutrophils % % Lymphocytes % % Monocytes % % Eosinophils % % Basophils % % Neutrophils # (1.3-7.7) k/uL Lymphocytes # (1.0-4.8) k/uL Monocytes # (0-1.0) k/uL Eosinophils # (0-0.7) k/uL Basophils # (0-0.2) k/uL Macrocytosis PT (10.0-12.5) sec INR (<1.2) APTT (22.0-30.0) sec D-Dimer (<0.60) mg/L FEU Sodium (137-145) mmol/L Potassium (3.5-5.1) mmol/L Chloride (98-107) mmol/L Carbon Dioxide (22-30) mmol/L Anion Gap mmol/L BUN (9-20) mg/dL Creatinine (0.66-1.25) mg/dL Est GFR (CKD-EPI)AfAm (>60 ml/min/1.73 sqM) Est GFR (CKD-EPI)NonAf (>60 ml/min/1.73 sqM) Glucose (74-99) mg/dL POC Glucose (mg/dL) (70-110) mg/dL POC Glu [employer] Manager ID Calcium (8.4-10.2) mg/dL Magnesium (1.6-2.3) mg/dL Total Bilirubin (0.2-1.3) mg/dL AST (17-59) U/L ALT (4-49) U/L Alkaline Phosphatase (38-126) U/L Troponin I 0.032 (0.000-0.034) ng/mL NT-Pro-B Natriuret Pep pg/mL Total Protein (6.3-8.2) g/dL Albumin (3.5-5.0) g/dL Influenza Type A (PCR) (Not Detectd) Influenza Type B (PCR) (Not Detectd) RSV (PCR) (Not Detectd) SARS-CoV-2 (PCR) (Not Detectd) - EKG Data -: EKG Interpreted by Me EKG Comments: 12-lead Electrocardiogram Interpretation Note EKG was reviewed and interpreted by myself. 12-lead ECG performed at 0059 is in terpreted by me as revealing paced rhythm at a rate of 59 beats per minute. Right axis deviation. IL interval is 189 ms, QRS durations 162 ms, QTc is [address] segment and T wave abnormalities. R wave progression across the precordium was satisfactory. By my interpretation this EKG is non- diagnostic for acute ischemia. Similar to prior EKG from February 2022. Disposition Clinical Impression: Syncope, COVID-19 virus infection Disposition: ADMITTED IP TO THIS HOSP Condition: Stable Referrals: Ran Arboleda MD [Primary Care Provider] - 1-2 days Time of Disposition: 02:45
[2024-09-11 01:09] LABS: Glucose,Whole Blood 128 mg/dL (70-110)
[2024-09-11 01:15] LABS: INR 1.3 (<1.2); Partial Thromboplastin Time 25.9 sec (22.0-30.0); Prothrombin Time 13.7 sec (10.0-12.5)
[2024-09-11 01:17] LABS: Basophils % (A) 1 %; Eosinophils # (A) 0.1 k/uL (0-0.7); Eosinophils % (A) 3 %; HCT 37.5 % (39.0-53.0); HGB 12.2 gm/dL (13.0-17.5); Lymphocytes # (A) 0.6 k/uL (1.0-4.8); Lymphocytes % (A) 13 %; MCH 33.5 pg (25.0-35.0); MCHC 32.5 g/dL (31.0-37.0); MCV 103.1 fL (80.0-100.0); Macrocytosis Moderate; Mean Platelet Volume 10.2; Monocytes # (A) 0.4 k/uL (0-1.0); Monocytes % (A) 9 %; Neutrophils # (A) 3.5 k/uL (1.3-7.7); Neutrophils % (A) 73 %; Platelet Count 161 k/uL (150-450); RBC 3.64 m/uL (4.30-5.90); RDW 15.7 % (11.5-15.5); WBC 4.8 k/uL (3.8-10.6)
[2024-09-11] MEDS: SODIUM CHLORIDE 0.9% 500 ML 500 ML IV STA ×2 (01:22→03:04)
--- NOTE | 2024-09-11 01:43 | XR ---
EXAMINATION TYPE: XR chest 2V DATE OF EXAM: 09/11/2024 CLINICAL HISTORY: Syncope TECHNIQUE: Frontal and lateral views of the chest are obtained. COMPARISON: Prior chest x-ray February 27, 2022 FINDINGS: Low lung volumes on current study. There is no focal air space opacity, pleural effusion, o r pneumothorax seen. Persistent cardiomegaly with multi lead pacemaker/defibrillator. The osseous s tructures are intact. IMPRESSION: Cardiomegaly without acute pulmonary process. [facility], , 09/11/2024 1:41 AM
--- NOTE | 2024-09-11 01:44 | XR ---
EXAMINATION TYPE: XR pelvis AP view DATE OF EXAM: 09/11/2024 CLINICAL HISTORY: Fall TECHNIQUE: A single AP view of the pelvis is obtained. COMPARISON: None. FINDINGS: There is no acute fracture/dislocation evident in the pelvis. Moderate axial joint space l oss of both hips. Pubic symphysis is intact. Sacroiliac joints is suboptimally visualized due to body habitus. IMPRESSION: There is no acute displaced fracture in the pelvis. [facility], , 09/11/2024 1:42 AM
[2024-09-11 01:48] LABS: ALT 18 U/L (4-49); AST 22 U/L (17-59); African American GFR (CKD) 49 (>60 ml/min/1.73 sqM); Albumin 3.6 g/dL (3.5-5.0); Alkaline Phosphatase 193 U/L (38-126); Anion Gap 8 mmol/L; Blood Urea Nitrogen 53 mg/dL (9-20); Calcium 8.3 mg/dL (8.4-10.2); Carbon Dioxide 22 mmol/L (22-30); Chloride 105 mmol/L (98-107); Glucose 131 mg/dL (74-99); Magnesium 2.3 mg/dL (1.6-2.3); Non-African American GFR(CKD) 43 (>60 ml/min/1.73 sqM); Potassium 4.7 mmol/L (3.5-5.1); Sodium 135 mmol/L (137-145); Total Bilirubin 1.9 mg/dL (0.2-1.3)
--- NOTE | 2024-09-11 01:52 | CT ---
EXAMINATION TYPE: CT brain malcolm wo con DATE OF EXAM: 09/11/2024 COMPARISON: NONE HISTORY: PT HAS HAD 3 FALLS IN THE PAST 1-3 WEEKS, HIS HEAD WENT THROUGH THE WALL TONIGHT CT DLP: 1336.9 mGycm. Automated Exposure Control for Dose Reduction was Utilized. TECHNIQUE: CT scan of the head and cervical spine are performed without contrast. FINDINGS: There is no acute intracranial hemorrhage or midline shift identified. Mild sulcal promin ence is seen bilaterally. No hydrocephalus. The calvarium is intact. There is near complete opacifica tion of the right frontal sinus. The globes are intact bilaterally.. The globes are intact and the v isualized sinuses are clear. Cervical spine is visualized in its entirety from C1 through upper thoracic levels and demonstrates s atisfactory alignment without evidence of acute fracture or dislocation. Prevertebral soft tissue ap pears within normal limits. The C1-C2 articulation is within normal limits on the coronal images. Ve rtebral body heights are maintained. There is moderate disc space narrowing at C5-C6 and C6-C7 levels . The lung apices are clear without pneumothorax . There is partial visualization of left-sided pacem nissa device. There is moderate mucosal thickening in the inferior right maxillary sinus. IMPRESSION: 1. There is no acute fracture or dislocation evident in the cervical spine. 2. No acute intracranial hemorrhage or midline shift is seen. [facility], , 09/11/2024 1:49 AM
[2024-09-11 01:57] LABS: NT-Pro-B-Type Natriuretic Pept 11600 pg/mL
--- NOTE | 2024-09-11 02:41 | CT ---
EXAMINATION TYPE: CT chest angio for PE DATE OF EXAM: 09/11/2024 COMPARISON: Prior CT 2021 HISTORY: ELEVATED D-DIMER CT DLP: 1770.6 mGycm. Automated Exposure Control for Dose Reduction was Utilized. CONTRAST: CTA scan of the thorax is performed with IV Contrast, patient injected with 80 ML mL of Isovue 370, p ulmonary embolism protocol. MIP Images are created on CT scanner and reviewed. FINDINGS: LUNGS: Suboptimal with some motion artifact. This limits evaluation for subcentimeter nodules. Some b ibasilar groundglass opacities are seen. There is mild linear scarring and/or atelectasis in the left lower lung. No pleural effusion or pneumothorax is seen bilaterally. MEDIASTINUM: Cardiomegaly is present. There is at least moderate biatrial dilatation. There is multi ple lead pacemaker/defibrillator. Less than ideal bolus is identified without acute central pulmonary embolism. Cannot entirely exclude peripheral pulmonary emboli on this exam. No significant pericardi al effusion. There is at least moderate left ventricular dilatation.. OTHER: Ascites in the abdomen is noted. Bilateral gynecomastia is seen. There is at least moderate di ffuse subcutaneous edema IMPRESSION: 1. Suboptimal study without acute central pulmonary embolism. Cannot entirely exclude acute periphera l pulmonary embolism. 2. Cardiomegaly without suspicious acute pulmonary process. 3. Abdominal ascites is partially imaged and diffuse subcutaneous edema is also seen. [facility], , 09/11/2024 2:39 AM
[2024-09-11] MEDS ORDERED: ONDANSETRON 4 MG/2 ML VIAL IVP PRN (02:43)
[2024-09-11] MEDS ORDERED: ACETAMINOPHEN TAB 325 MG TAB PO PRN (02:43)
[2024-09-11] MEDS ORDERED: NALOXONE 0.4 MG/ML 1 ML VIAL IV PRN (02:43)
[2024-09-11] MEDS ORDERED: PANTOPRAZOLE 40 MG TABLET PO PRN (02:49)
[2024-09-11] MEDS: FUROSEMIDE 10 MG/ML 4 ML VIAL IV STA (03:04)
[2024-09-11 03:53] LABS: Appearance,Urine Clear (Clear); Bilirubin,Urine Negative (Negative); Blood,Urine Negative (Negative); Color,Urine Light Yellow; Glucose,Urine (UA) Negative (Negative); Ketones,Urine Negative (Negative); Leukocyte Esterase,Urine Negative (Negative); Nitrite,Urine Negative (Negative); Protein,Urine Negative (Negative); Specific Gravity,Urine 1.018 (1.001-1.035); Urobilinogen,Urine <2.0 mg/dL (<2.0)
--- NOTE | 2024-09-11 07:38 | US ---
EXAMINATION TYPE: US venous doppler duplex LE BI DATE OF EXAM: 09/11/2024 7:19 AM COMPARISON: 02/14/2022 CLINICAL INDICATION: Male, 59 years old with history of leg edema, elevated dimer. eval for dvt; Jessica ent fell 2-3 weeks ago; BLE swelling since; Patient denies any other signs, symptoms, or relevant his tory, TECHNIQUE: The lower extremity deep venous system is examined utilizing real time linear array sonog eddy with graded compression, color doppler sonography, and spectral doppler. SIDE PERFORMED: Bilateral FINDINGS: VESSELS IMAGED: Common Femoral Vein Deep Femoral Vein Greater Saphenous Vein * Femoral Vein Popliteal Vein Small Saphenous Vein * Proximal Calf Veins (* superficial vessels) Right Leg: Negative for DVT, Color Doppler imaging shows patency of the vessels. Spectral waveforms are within normal limits. Left Leg: Negative for DVT, Color Doppler imaging shows patency of the vessels. Spectral waveforms a re within normal limits. IMPRESSION: No ultrasound evidence for deep venous thrombosis. [facility], , 09/11/2024 7:35 AM
[2024-09-11] MEDS: FUROSEMIDE 40 MG TAB PO SCH ×2 (08:02→17:53)
[2024-09-11] MEDS: POTASSIUM CHLORIDE ER 10 MEQ TAB.ER.PRT PO SCH (08:05)
[2024-09-11] MEDS: SERTRALINE 50 MG TAB PO SCH (08:05)
[2024-09-11] MEDS: carvediloL 6.25 MG TAB PO SCH ×2 (08:05→17:53)
[2024-09-11] MEDS: HEPARIN SODIUM,PORCINE 5,000 UNIT/ML 1 ML VIAL SQ SCH (08:07)
[2024-09-11] MEDS: carBAMazepine 300 MG CPMP.12HR PO SCH (09:02)
[2024-09-11] MEDS: FUROSEMIDE 20 MG TAB PO SCH (09:28)
[2024-09-11 10:30] LABS: Basophils % (A) 1 %; Eosinophils # (A) 0.1 k/uL (0-0.7); Eosinophils % (A) 2 %; HCT 39.9 % (39.0-53.0); HGB 12.5 gm/dL (13.0-17.5); Hypochromasia Slight; Lymphocytes # (A) 0.7 k/uL (1.0-4.8); Lymphocytes % (A) 12 %; MCHC 31.3 g/dL (31.0-37.0); MCV 105.5 fL (80.0-100.0); Macrocytosis Moderate; Mean Platelet Volume 9.6; Monocytes # (A) 0.5 k/uL (0-1.0); Monocytes % (A) 8 %; Neutrophils # (A) 4.5 k/uL (1.3-7.7); Neutrophils % (A) 76 %; Platelet Count 163 k/uL (150-450); RBC 3.78 m/uL (4.30-5.90); WBC 5.9 k/uL (3.8-10.6)
[2024-09-11] MEDS: ENOXAPARIN 40 MG/0.4 ML SYRINGE SQ SCH (10:35)
[2024-09-11 10:40] LABS: ALT 18 U/L (4-49); AST 21 U/L (17-59); African American GFR (CKD) 50 (>60 ml/min/1.73 sqM); Albumin/Globulin Ratio 1.1; Alkaline Phosphatase 200 U/L (38-126); Anion Gap 9 mmol/L; Blood Urea Nitrogen 48 mg/dL (9-20); Calcium 8.7 mg/dL (8.4-10.2); Carbon Dioxide 25 mmol/L (22-30); Chloride 104 mmol/L (98-107); Globulin 3.6 g/dL; Glucose 142 mg/dL (74-99); Magnesium 2.5 mg/dL (1.6-2.3); Non-African American GFR(CKD) 43 (>60 ml/min/1.73 sqM); Potassium 4.8 mmol/L (3.5-5.1); Sodium 138 mmol/L (137-145); Total Bilirubin 2.2 mg/dL (0.2-1.3); Total Protein 7.6 g/dL (6.3-8.2)
--- NOTE | 2024-09-11 11:45 | P.CRDCN ---
History of Present Illness History of present illness: HISTORY OF PRESENT ILLNESS: This is a 59-year-old male with a past medical history significant for normal coronary arteries, nonischemic cardiomyopathy, biventricular ICD, chronic kidney disease, moderate to severe mitral regurgitation, and moderate to severe tricuspid regurgitation.. Patient follows in the office with Dr. Amaya. We have been asked to see the patient in consultation for syncope. Patient examined at the bedside in the emergency room. Patient's mom is present. Patient presented to the hospital after having a syncopal episode at home. The patient's mom states about 3 weeks ago he was walking on a treadmill when he tripped over his feet and fell. He does not believe he lost consciousness at that time. However his mom states that he has had 3 episodes over the past 3 weeks where he is falling and loses consciousness. The patient also reports increased swelling in his legs and his abdomen. The patient presented to the hospital for further evaluation. He was found to be positive for COVID. Blood pressures are borderline with a systolic in the 90s. Patient currently denies any dizziness or lightheadedness. According to cardiology records, the patient was sent to [facility] for possible mitral clipping. At that time he was not symptomatic and they felt that he did not need to have this performed. He was then referred to advanced heart clinic at [facility]. According to records, patient and his mother are both adamant that they do not want LVAD or heart transplant. DIAGNOSTICS: - EKG reveals AV paced rhythm - Chest xray cardiomegaly without acute pulmonary process - Lower extremity Doppler: Negative for DVT. - Laboratory data: WBC 5.9. Hemoglobin 12.5. Platelet count 163. Sodium 138. Potassium 4.8. BUN 48. Creatinine 1.71. Troponin 0.032. 0.032. 0.035. - Current home cardiac medications include carvedilol 12.5 mg in the morning and 6.25 mg in the evening, losartan 25 mg with supper, Aldactone 25 mg with supper, Lasix 40 mg in the morning and 20 mg in the afternoon - Most recent echocardiogram obtained in April 2024 revealing ejection fraction 10%, mild aortic regurgitation, severe mitral regurgitation, moderate to severe tricuspid regurgitation - Cardiac catheterization history: 1993 revealing no obstructive CAD REVIEW OF SYSTEMS: At the time of my exam: CONSTITUTIONAL: Denies fever or chills. HEENT: Denies blurred vision, vision changes, or eye pain. Denies hemoptysis CARDIOVASCULAR: Denies chest pain. Denies orthopnea. Denies PND. Denies palpitations RESPIRATORY: Denies shortness of breath. GASTROINTESTINAL: Denies abdominal pain. Denies nausea or vomiting. HEMATOLOGIC: Denies bleeding disorders. GENITOURINARY: Denies any blood in urine. SKIN: Denies pruitis. Denies rash. PHYSICAL EXAM: VITAL SIGNS: Reviewed. GENERAL: Well-developed in no acute distress. HEENT: Head is normocephalic. Pupils are equal, round. Sclerae anicteric. Mucous membranes of the mouth are moist. Neck supple. No JVD or thyromegaly LUNGS: Respirations even and unlabored. Lungs essentially clear to auscultation bilaterally. HEART: Regular rate and rhythm. S1 and S2 heard. Systolic murmur noted. ABDOMEN: Soft. Nondistended. Nontender. EXTREMITIES: Normal range of motion. No clubbing or cyanosis. Peripheral pulses intact. Bilateral lower extremity edema noted. NEUROLOGIC: Awake and alert. Oriented x 3. ASSESSMENT: Reported syncope Acute COVID-19 Chronic heart failure with reduced EF, 10% Nonischemic cardiomyopathy Chronic kidney disease Moderate pulmonary hypertension Valvular heart disease including mild AI, severe MR, and moderate to severe TR Isolated minimally elevated troponin, likely secondary to poor renal clearance, no evidence of acute myocardial injury or ischemia History of hypertension History of biventricular ICD implantation, Medtronic Normal coronary arteries, per cardiac catheterization 1993 PLAN: Interrogate Medtronic ICD No need to repeat echocardiogram as this was performed in the office in April 2024 Discontinue losartan Resume additional home cardiac medications Increase Lasix to 40 mg twice a day as this is what he was supposed to be taking when he saw Amaya in the office on 09/04/2024 Patient has expressed he does not want any further advanced heart failure workup performed Further recommendations pending patient course Nurse practitioner note has been reviewed by physician. Signing provider agrees with the documented findings, assessment, and plan of care documented by SPECIAL DELIVERY WORKER as a scribe. Past Medical History Past Medical History: Heart Failure, GERD/Reflux, Rheumatoid Arthritis (RA), Seizure Disorder Additional Past Medical History / Comment(s): See Dr May's H&P. SOB, CHF. La st seizure a long time ago. History of Any Multi-Drug Resistant Organisms: None Reported Past Surgical History: AICD Additional Past Surgical History / Comment(s): Injury to lower back that caused a "lump" which was removed, colonoscopy. Past Anesthesia/Blood Transfusion Reactions: Postoperative Nausea & Vomiting (PONV) Additional Past Anesthesia/Blood Transfusion Reaction / Comment(s): Severe anxiety related to procedure. Type of Cardiac Device: Biventricular Pacemaker Device Placement Date:: 02/27/22 Smoking Status: Former smoker - Past Family History Father Family Medical History: Cancer Additional Family Medical History / Comment(s): Father from metastatic cancer/primary unknown. Mother Family Medical History: Cancer, Osteoarthritis (OA) Additional Family Medical History / Comment(s): Skin cancer. Medications and Allergies Home Medications Medication Instructions Recorded Confirmed Type Potassium Chloride [Potassium 10 meq PO W/BRKFST 02/10/22 09/11/24 History Chloride ER] carBAMazepine [Carbatrol] 600 mg PO BID-W/MEALS 02/10/22 09/11/24 History carvediloL [Coreg] 6.25 mg PO W/SUPPER 02/10/22 09/11/24 History carvediloL [Coreg] 12.5 mg PO W/BRKFST 02/10/22 09/11/24 History Spironolactone [Aldactone] 25 mg PO W/SUPPER 02/20/22 09/11/24 History Furosemide [Lasix] 40 mg PO W/BRKFST 02/24/22 09/11/24 History Sertraline [Zoloft] 25 mg PO W/BRKFST 02/24/22 09/11/24 History Furosemide [Lasix] 20 mg PO W/SUPPER 09/11/24 09/11/24 History Losartan [Cozaar] 25 mg PO W/SUPPER 09/11/24 09/11/24 History Allergies Allergy/AdvReac Type Severity Reaction Status Date / Time cheese Allergy Unknown Verified 09/11/24 07:48 Penicillins Allergy Rash/Hives Verified 09/11/24 07:48 on entire body Physical Exam Vitals: Vital Signs Temp Pulse Pulse Pulse Pulse Resp BP 09/11/24 08:07 64 18 97/70 09/11/24 06:46 58 L 16 98/52 09/11/24 03:24 56 L 18 103/70 09/11/24 02:31 62 61 57 L 11/21/24 01:13 98.3 F 56 L 18 94/68 BP BP BP Pulse Ox 09/11/24 08:07 96 09/11/24 06:46 100 09/11/24 03:24 98 09/11/24 02:31 97/58 96/64 95/65 09/11/24 01:13 98 Intake and Output 09/10/24 09/11/24 09/11/24 22:59 06:59 14:59 Other: Weight 97.069 kg Results 09/11/24 09:53 09/11/24 09:53 Cardiac Enzymes 09/11/24 09/11/24 09/11/24 Range/Units 00:50 01:15 03:07 AST 22 (17-59) U/L Troponin I 0.032 0.032 (0.000-0.034) ng/mL 09/11/24 Range/Units 06:11 AST (17-59) U/L Troponin I 0.035 H* (0.000-0.034) ng/mL Coagulation 09/11/24 Range/Units 00:50 PT 13.7 H (10.0-12.5) sec APTT 25.9 (22.0-30.0) sec CBC 09/11/24 Range/Units 00:50 WBC 4.8 (3.8-10.6) k/uL RBC 3.64 L (4.30-5.90) m/uL Hgb 12.2 L (13.0-17.5) gm/dL Hct 37.5 L (39.0-53.0) % Plt Count 161 (150-450) k/uL Comprehensive Metabolic Panel 09/11/24 Range/Units 00:50 Sodium 135 L (137-145) mmol/L Potassium 4.7 (3.5-5.1) mmol/L Chloride 105 (98-107) mmol/L Carbon Dioxide 22 (22-30) mmol/L BUN 53 H (9-20) mg/dL Creatinine 1.74 H (0.66-1.25) mg/dL Glucose 131 H (74-99) mg/dL Calcium 8.3 L (8.4-10.2) mg/dL AST 22 (17-59) U/L ALT 18 (4-49) U/L Alkaline Phosphatase 193 H (38-126) U/L Total Protein 7.0 (6.3-8.2) g/dL Albumin 3.6 (3.5-5.0) g/dL Current Medications Generic Name Dose Route Start Last Admin Trade Name Freq PRN Reason Stop Dose Admin Acetaminophen 650 mg 09/11/24 02:43 Acetaminophen Tab 325 Mg Tab PO Q6HR PRN Mild Pain or Fever > 100.5 Carbamazepine 600 mg 09/11/24 07:30 09/11/24 09:02 Carbamazepine 300 Mg Cpmp.12hr PO 600 mg BID-W/MEALS [place] Administration Carvedilol 6.25 mg 09/11/24 17:30 Carvedilol 6.25 Mg Tab PO W/SUPPER [place] Carvedilol 12.5 mg 09/11/24 07:30 09/11/24 08:05 Carvedilol 6.25 Mg Tab PO 12.5 mg AC-BRKFST [place] Administration Furosemide 20 mg 09/11/24 09:00 Furosemide 20 Mg Tab PO DAILY [facility] Furosemide 40 mg 09/11/24 07:30 09/11/24 08:02 Furosemide 40 Mg Tab PO Not Given W/BRKFST [facility] Heparin Sodium (Porcine) 5,000 unit 09/11/24 08:00 09/11/24 08:07 Heparin Sodium,Porcine 5,000 Unit/Ml 1 Ml Vial SQ Not Given Q8HR [facility] Losartan Potassium 25 mg 09/11/24 17:30 Losartan 25 Mg Tab PO W/SUPPER [place] Naloxone HCl 0.2 mg 09/11/24 02:43 Naloxone 0.4 Mg/Ml 1 Ml Vial IV Q2M PRN Opioid Reversal Ondansetron HCl 4 mg 09/11/24 02:43 Ondansetron 4 Mg/2 Ml Vial IVP Q8HR PRN Nausea And Vomiting Potassium Chloride 10 meq 09/11/24 07:30 09/11/24 08:05 Potassium Chloride Er 10 Meq Tab.Er.Prt PO 10 meq W/BRKFST [place] Administration Sertraline HCl 50 mg 09/11/24 07:30 09/11/24 08:05 Sertraline 50 Mg Tab PO 50 mg W/BRKFST [place] Administration Spironolactone 25 mg 09/11/24 17:30 Spironolactone 25 Mg Tab PO W/SUPPER [place] Intake and Output 11/20/24 11/21/24 11/21/24 22:59 06:59 14:59 Other: Weight 97.069 kg 09/11/24 00:50 09/11/24 00:50
--- NOTE | 2024-09-11 15:25 | P.HPIM ---
History of Present Illness H&P Date: 09/11/24 This is a 59-year-old male who presented to the emergency department with increased weakness with another episode of lightheadedness and syncope and also noted to be COVID-positive. Patient follows with Dr. Arboleda along with Dr. Amaya in the outpatient setting with a past medical history of heart failure, GERD, rheumatoid arthritis, seizure disorder, severe anxiety, previous biventricular pacemaker. Apparently patient has been having recurrent falls and syncopal episodes upwards of 4 times over the last few weeks. Troponins were mildly elevated on admission and patient was also noted to be COVID-positive. Patient is sitting up at the bedside room air denies any shortness of breath or cough and denies any other people that have been sick or any other sick contacts. Patient was admitted with concerns of syncope and generalized weakness for cardiology evaluation REVIEW OF SYSTEMS: CONSTITUTIONAL: No fever, no malaise, no fatigue. HEENT: No recent visual problems or hearing problems. Denied any sore throat. CARDIOVASCULAR: No chest pain, orthopnea, PND, no palpitations, per family reports syncope. PULMONARY: No shortness of breath, no cough, no hemoptysis. GASTROINTESTINAL: No diarrhea, no nausea, no vomiting, no abdominal pain. NEUROLOGICAL: No headaches, no weakness, no numbness. HEMATOLOGICAL: Denies any bleeding or petechiae. GENITOURINARY: Denies any burning micturition, frequency, or urgency. MUSCULOSKELETAL/RHEUMATOLOGICAL: Denies any joint pain, swelling, or any muscle pain. ENDOCRINE: Denies any polyuria or polydipsia. The rest of the 14-point review of systems is negative. PHYSICAL EXAMINATION: GENERAL: The patient is alert and oriented x2, baseline, not in any acute distress. Well developed, well nourished. Appears older than stated age, appears developmentally delayed HEENT: Pupils are round and equally reacting to light. EOMI. No scleral icterus. No conjunctival pallor. Normocephalic, atraumatic. No pharyngeal erythema. No thyromegaly. CARDIOVASCULAR: S1 and S2 muffled PULMONARY: Chest is clear to auscultation, no wheezing or crackles. ABDOMEN: Soft, nontender, nondistended, normoactive bowel sounds. No palpable organomegaly. MUSCULOSKELETAL: No joint swelling or deformity. EXTREMITIES: No cyanosis, clubbing, or pedal edema. NEUROLOGICAL: Gross neurological examination did not reveal any focal deficits. SKIN: No rashes. Assessment: Reported syncope per family with recurrent episodes at least 4 times over the last few weeks Chronic heart failure history with an EF of 10% AICD placement Valvular heart disease History of hypertension History of nonischemic cardiomyopathy Chronic kidney disease Moderate pulmonary hypertension Noncompliance with diet and medications GI prophylaxis DVT prophylaxis Full code Plan: Patient was admitted with episodes of syncope and per family mother reports he was standing and then just passed out Cardiology on consult and will have pacemaker interrogated Making adjustments to medications Reviewed and resume appropriate home medications Discussed with patient along with family at the bedside about diet compliance as he reports he drinks at least 3 cans of pop daily and does not really follow a strict diet Recommend fluid restrictions as well Will monitor overnight and discuss further with cardiology with possible discharge planning in the next 24 hours Repeat labs to monitor kidney functions Due to significant comorbidities, overall prognosis is guarded Per cardiology patient does not want any further intervention regarding his cardiomyopathy. The impression and plan of care has been dictated by Ny Mauricio, Nurse Practitioner as directed. Dr. Shad MD I have performed a history and examination and MDM of this patient, discussed the same with the dictator, and agree with the dictator's assessment and plan as written ,documented as a scribe. Based on total visit time, I have performed more than 50% of the visit. Past Medical History Past Medical History: Heart Failure, GERD/Reflux, Rheumatoid Arthritis (RA), Seizure Disorder Additional Past Medical History / Comment(s): See Dr May's H&P. SOB, CHF. Last seizure a long time ago. History of Any Multi-Drug Resistant Organisms: None Reported Past Surgical History: AICD Additional Past Surgical History / Comment(s): Injury to lower back that caused a "lump" which was removed, colonoscopy. Past Anesthesia/Blood Transfusion Reactions: Postoperative Nausea & Vomiting (PONV) Additional Past Anesthesia/Blood Transfusion Reaction / Comment(s): Severe anxiety related to procedure. Type of Cardiac Device: Biventricular Pacemaker Device Placement Date:: 02/27/22 Smoking Status: Former smoker - Past Family History Father Family Medical History: Cancer Additional Family Medical History / Comment(s): Father from metastatic cancer/primary unknown. Mother Family Medical History: Cancer, Osteoarthritis (OA) Additional Family Medical History / Comment(s): Skin cancer. Medications and Allergies Home Medications Medication Instructions Recorded Confirmed Type Potassium Chloride [Potassium 10 meq PO W/BRKFST 02/10/22 09/11/24 History Chloride ER] carBAMazepine [Carbatrol] 600 mg PO BID-W/MEALS 02/10/22 09/11/24 History carvediloL [Coreg] 6.25 mg PO W/SUPPER 02/10/22 09/11/24 History carvediloL [Coreg] 12.5 mg PO W/BRKFST 02/10/22 09/11/24 History Spironolactone [Aldactone] 25 mg PO W/SUPPER 02/20/22 09/11/24 History Furosemide [Lasix] 40 mg PO W/BRKFST 02/24/22 09/11/24 History Sertraline [Zoloft] 25 mg PO W/BRKFST 02/24/22 09/11/24 History Furosemide [Lasix] 20 mg PO W/SUPPER 09/11/24 09/11/24 History Losartan [Cozaar] 25 mg PO W/SUPPER 09/11/24 09/11/24 History Allergies Allergy/AdvReac Type Severity Reaction Status Date / Time cheese Allergy Unknown Verified 09/11/24 07:48 Penicillins Allergy Rash/Hives Verified 09/11/24 07:48 on entire body Physical Exam Vitals: Vital Signs Temp Pulse Pulse Pulse Pulse Resp BP 09/11/24 08:07 64 18 97/70 09/11/24 06:46 58 L 16 98/52 09/11/24 03:24 56 L 18 103/70 09/11/24 02:31 62 61 57 L 09/11/24 01:13 98.3 F 56 L 18 94/68 BP BP BP Pulse Ox 09/11/24 08:07 96 09/11/24 06:46 100 09/11/24 03:24 98 09/11/24 02:31 97/58 96/64 95/65 09/11/24 01:13 98 Intake and Output 09/10/24 09/11/24 09/11/24 22:59 06:59 14:59 Other: Weight 97.069 kg Results CBC & Chem 7: 09/11/24 09:53 09/11/24 09:53 Labs: Abnormal Lab Results - Last 24 Hours (Table) 09/11/24 09/11/24 09/11/24 Range/Units 00:50 00:50 00:50 RBC 3.64 L (4.30-5.90) m/uL Hgb 12.2 L (13.0-17.5) gm/dL Hct 37.5 L (39.0-53.0) % MCV 103.1 H (80.0-100.0) fL RDW 15.7 H (11.5-15.5) % Lymphocytes # 0.6 L (1.0-4.8) k/uL PT 13.7 H (10.0-12.5) sec INR 1.3 H (<1.2) D-Dimer (<0.60) mg/L FEU Sodium 135 L (137-145) mmol/L BUN 53 H (9-20) mg/dL Creatinine 1.74 H (0.66-1.25) mg/dL Glucose 131 H (74-99) mg/dL POC Glucose (mg/dL) (70-110) mg/dL Calcium 8.3 L (8.4-10.2) mg/dL Total Bilirubin 1.9 H (0.2-1.3) mg/dL Alkaline Phosphatase 193 H (38-126) U/L Troponin I (0.000-0.034) ng/mL SARS-CoV-2 (PCR) (Not Detectd) 09/11/24 09/11/24 09/11/24 Range/Units 00:50 01:07 01:15 RBC (4.30-5.90) m/uL Hgb (13.0-17.5) gm/dL Hct (39.0-53.0) % MCV (80.0-100.0) fL RDW (11.5-15.5) % Lymphocytes # (1.0-4.8) k/uL PT (10.0-12.5) sec INR (<1.2) D-Dimer 1.98 H (<0.60) mg/L FEU Sodium (137-145) mmol/L BUN (9-20) mg/dL Creatinine (0.66-1.25) mg/dL Glucose (74-99) mg/dL POC Glucose (mg/dL) 128 H (70-110) mg/dL Calcium (8.4-10.2) mg/dL Total Bilirubin (0.2-1.3) mg/dL Alkaline Phosphatase (38-126) U/L Troponin I (0.000-0.034) ng/mL SARS-CoV-2 (PCR) Detected A (Not Detectd) 09/11/24 Range/Units 06:11 RBC (4.30-5.90) m/uL Hgb (13.0-17.5) gm/dL Hct (39.0-53.0) % MCV (80.0-100.0) fL RDW (11.5-15.5) % Lymphocytes # (1.0-4.8) k/uL PT (10.0-12.5) sec INR (<1.2) D-Dimer (<0.60) mg/L FEU Sodium (137-145) mmol/L BUN (9-20) mg/dL Creatinine (0.66-1.25) mg/dL Glucose (74-99) mg/dL POC Glucose (mg/dL) (70-110) mg/dL Calcium (8.4-10.2) mg/dL Total Bilirubin (0.2-1.3) mg/dL Alkaline Phosphatase (38-126) U/L Troponin I 0.035 H* (0.000-0.034) ng/mL SARS-CoV-2 (PCR) (Not Detectd)
[2024-09-11] MEDS ORDERED: LOSARTAN 25 MG TAB PO SCH (17:30)
[2024-09-11] MEDS: SPIRONOLACTONE 25 MG TAB PO SCH (17:53)
[2024-09-12 07:15] VITALS: BP 98/63; PULSE 56; RESP 16; TEMP 97.5
[2024-09-12 08:51] LABS: Basophils # (A) 0.04 X 10*3/uL (0.00-0.10); Basophils % (A) 0.8 %; Eosinophils # (A) 0.12 X 10*3/uL (0.04-0.35); Eosinophils % (A) 2.5 %; HCT 34.6 % (39.6-50.0); HGB 11.2 g/dL (13.0-17.0); Lymphocytes # (A) 0.56 X 10*3/uL (0.90-5.00); Lymphocytes % (A) 11.5 %; MCH 33.5 pg (27.0-32.0); MCHC 32.4 g/dL (32.0-37.0); MCV 103.6 FL (80.0-97.0); Monocytes # (A) 0.67 X 10*3/uL (0.20-1.00); Monocytes % (A) 13.7 %; NRBC Per 100 WBC 0 X 10*3/uL (0.00-0.01); Neutrophils # (A) 3.49 X 10*3/uL (1.80-7.70); Neutrophils % (A) 71.3 %; Platelet Count 152 X 10*3/uL (140-440); RBC 3.34 X 10*6/uL (4.40-5.60); RDW 16.7 % (11.5-14.5); WBC 4.89 X 10*3/uL (4.50-10.00)
[2024-09-12 08:58] LABS: ALT 15 U/L (10-49); AST 18 U/L (14-35); Albumin 3.6 g/dL (3.8-4.9); Albumin/Globulin Ratio 1.24 Ratio (1.60-3.17); Alkaline Phosphatase 188 U/L (41-126); BUN/Creat Ratio 27.31 Ratio (12.00-20.00); Blood Urea Nitrogen 43.7 mg/dL (9.0-27.0); Calcium 8.4 mg/dL (8.7-10.3); Carbon Dioxide 22.8 mmol/L (21.6-31.8); Chloride 103 mmol/L (96-109); Globulin 2.9 g/dL (1.6-3.3); Glucose 114 mg/dL (70-110); Potassium 4.3 mmol/L (3.5-5.5); Sodium 139 mmol/L (135-145); Total Bilirubin 1.7 mg/dL (0.3-1.2); Total Protein 6.5 g/dL (6.2-8.2)
--- NOTE | 2024-09-12 10:26 | CA ---
Transthoracic Echo Report Name: Will Kennedy Age: 59 Gender: M : 1965 Exam Date: 09/11/2024 15:11 Exam Location: [place] [facility] Ht (in): 76 Wt (lb): 214 Ordering Physician: Jose Mirza MD Attending/Referring Phys: Field Staff Elsy Stout RDCS Procedure CPT: Indications: Positive troponin Cardiac Hx: Technical Quality: Good Contrast 1: Definity Total Dose (mL): 2 Contrast 2: Total Dose (mL): MEASUREMENTS (Male / Female) Normal Values 2D ECHO LV Diastolic Diameter PLAX 8.6 cm 4.2 - 5.9 / 3.9 - 5.3 cm LV Systolic Diameter PLAX 8.1 cm IVS Diastolic Thickness 0.9 cm 0.6 - 1.0 / 0.6 - 0.9 cm LVPW Diastolic Thickness 0.9 cm 0.6 - 1.0 / 0.6 - 0.9 cm LV Relative Wall Thickness 0.2 LVOT Diameter 2.3 cm Aortic Root Diameter 2.9 cm LV Diastolic Volume MOD BP 418.1 cm??? 67 - 155 / 56 - 104 cm??? LV Systolic Volume MOD BP 380.7 cm??? 22 - 58 / 19 - 49 cm??? LV Ejection Fraction MOD BP 9.0 % >= 55 % LV Cardiac Index MOD BP 997.8 cm???/min???m??? LV Diastolic Volume MOD 4C 403.8 cm??? LV Systolic Volume MOD 4C 395.9 cm??? LV Ejection Fraction MOD 4C 1.9 % LV Cardiac Index MOD 4C 209.1 cm???/min???m??? LV Diastolic Length 4C 11.1 cm LV Systolic Length 4C 11.0 cm LV Diastolic Volume MOD 2C 433.9 cm??? LV Systolic Volume MOD 2C 347.1 cm??? LV Ejection Fraction MOD 2C 20.0 % LV Cardiac Index MOD 2C 2312.9 cm???/min???m??? LV Diastolic Length 2C 11.1 cm LV Systolic Length 2C 10.4 cm LA Volume 158.0 cm??? 18 - 58 / 22 - 52 cm??? LA Volume Index 69.0 cm???/m??? 16 - 28 cm???/m??? DOPPLER AV Peak Velocity 145.5 cm/s AV Peak Gradient 8.5 mmHg AV Mean Velocity 101.9 cm/s AV Mean Gradient 4.7 mmHg AV Velocity Time Integral 25.6 cm LVOT Peak Velocity 96.8 cm/s LVOT Peak Gradient 3.8 mmHg LVOT Velocity Time Integral 17.0 cm LVOT Stroke Volume 69.9 cm??? LVOT Stroke Volume Index 30.7 ml/m??? LVOT Cardiac Index 1862.9 cm???/min???m??? AV Area Cont Eq vti 2.7 cm??? AV Area Cont Eq pk 2.7 cm??? MV Area PHT 4.6 cm??? MR Peak Velocity 446.6 cm/s MR Peak Gradient 79.8 mmHg MR Flow Rate PISA 208.4 cm???/s MR ERO PISA 0.5 cm??? MR Regurgitant Volume PISA 65.3 cm??? Mitral E Point Velocity 106.3 cm/s Mitral A Point Velocity 28.7 cm/s Mitral E to A Ratio 3.7 MV Deceleration Time 165.4 ms TR Peak Velocity 318.2 cm/s TR Peak Gradient 40.5 mmHg Right Atrial Pressure 20.0 mmHg Pulmonary Artery Systolic Pressu 60.5 mmHg Right Ventricular Systolic Press 60.5 mmHg PV Peak Velocity 61.1 cm/s PV Peak Gradient 1.5 mmHg FINDINGS Left Ventricle Left ventricular ejection fraction is estimated at 10-15 %. Severely increased left ventricular diastolic diameter. Severely increased left ventricular diastolic volume. Severely increased left ventricular systolic volume. Severely decreased left ventricular ejection fraction with regionals. Right Ventricle Severe right ventricular dilatation with severely reduced function. Severe pulmonary hypertension. Right Atrium Severe right atrial dilatation. Catheter/pacemaker wire in the right atrial cavity. Left Atrium Severely increased left atrial volume. Moderately increased left atrial area. Mitral Valve Mitral valve thickened. Mitral annular calcification. No evidence for mitral valve prolapse. No mitral stenosis. Severe mitral regurgitation. Aortic Valve Trileaflet aortic valve. Aortic valve sclerosis. No aortic stenosis. Mild aortic regurgitation. Tricuspid Valve Structurally normal tricuspid valve. No tricuspid stenosis. [id number] tricuspid regurgitation. Pulmonic Valve Pulmonic valve not well visualized. No pulmonic stenosis. No pulmonic regurgitation. Pericardium No pericardial effusion. Aorta Aortic annulus normal. CONCLUSIONS LVEF 10 to 15% Severely dilated LV cavity Severely dilated RV with reduced systolic function. Severe pulmonary hypertension, RVSP 60 mmHg Severe biatrial dilatation Severe MR Severe TR Mild AI Previewed by: Dr Zana Velez (Electronically Signed) Final Date: 12 September 2024 10:25
--- NOTE | 2024-09-12 11:38 | P.PN ---
Subjective HISTORY OF PRESENT ILLNESS: This is a 59-year-old male with a past medical history significant for normal coronary arteries, nonischemic cardiomyopathy, biventricular ICD, chronic kidney disease, moderate to severe mitral regurgitation, and moderate to severe tricuspid regurgitation.. Patient follows in the office with Dr. Amaya. We have been asked to see the patient in consultation for syncope. Patient examined at the bedside in the emergency room. Patient's mom is present. Patient presented to the hospital after having a syncopal episode at home. The patient's mom states about 3 weeks ago he was walking on a treadmill when he tri pped over his feet and fell. He does not believe he lost consciousness at that time. However his mom states that he has had 3 episodes over the past 3 weeks where he is falling and loses consciousness. The patient also reports increased swelling in his legs and his abdomen. The patient presented to the hospital for further evaluation. He was found to be positive for COVID. Blood pressures are borderline with a systolic in the 90s. Patient currently denies any dizziness or lightheadedness. According to cardiology records, the patient was sent to [facility] for possible mitral clipping. At that time he was not symptomatic and they felt that he did not need to have this performed. He was then referred to advanced heart clinic at [facility]. According to records, patient and his mother are both adamant that they do not want LVAD or heart transplant. DIAGNOSTICS: - EKG reveals AV paced rhythm - Chest xray cardiomegaly without acute pulmonary process - Lower extremity Doppler: Negative for DVT. - Laboratory data: WBC 5.9. Hemoglobin 12.5. Platelet count 163. Sodium 138. Potassium 4.8. BUN 48. Creatinine 1.71. Troponin 0.032. 0.032. 0.035. - Current home cardiac medications include carvedilol 12.5 mg in the morning and 6.25 mg in the evening, losartan 25 mg with supper, Aldactone 25 mg with supper, Lasix 40 mg in the morning and 20 mg in the afternoon - Most recent echocardiogram obtained in April 2024 revealing ejection fraction 10%, mild aortic regurgitation, severe mitral regurgitation, moderate to severe tricuspid regurgitation - Cardiac catheterization history: 1993 revealing no obstructive CAD 09/12/2024 Patient examined this morning the bedside. Patient currently denies chest pain or pressure. He denies shortness of breath. Blood pressure remains in the 90s. He denies any dizziness or lightheadedness. No further episodes of syncope. Pacemaker interrogated with no acute events. Echocardiogram completed revealing ejection fraction 10 to 15%, severely dilated LV cavity and severely dilated RV RV cavity with reduced systolic function, severe pulmonary hypertension, severe biatrial dilatation, severe MR, severe TR, mild AI. PHYSICAL EXAM: VITAL SIGNS: Reviewed. GENERAL: Well-developed in no acute distress. HEENT: Head is normocephalic. Pupils are equal, round. Sclerae anicteric. Mucous membranes of the mouth are moist. Neck supple. No JVD or thyromegaly LUNGS: Respirations even and unlabored. Lungs essentially clear to auscultation bilaterally. HEART: Regular rate and rhythm. S1 and S2 heard. Systolic murmur noted. ABDOMEN: Soft. Nondistended. Nontender. EXTREMITIES: Normal range of motion. No clubbing or cyanosis. Peripheral pulses intact. Bilateral lower extremity edema noted. NEUROLOGIC: Awake and alert. Oriented x 3. ASSESSMENT: Reported syncope Acute COVID-19 Chronic heart failure with reduced EF, 10% Nonischemic cardiomyopathy Chronic kidney disease Moderate pulmonary hypertension Valvular heart disease including mild AI, severe MR, and severe TR Isolated minimally elevated troponin, likely secondary to poor renal clearance, no evidence of acute myocardial injury or ischemia History of hypertension History of biventricular ICD implantation, [employer] Normal coronary arteries, per cardiac catheterization 1993 PLAN: Losartan interrogated with no acute events noted Losartan discontinued yesterday secondary to hypotension Continue additional cardiac medications Patient is stable for discharge home today from a cardiac standpoint Patient to follow-up postdischarge with Dr. Amaya Nurse practitioner note has been reviewed by physician. Signing provider agrees with the documented findings, assessment, and plan of care documented by PATIENT SERVICE COORDINATOR as a scribe. Objective - Vital Signs Vital signs: Vital Signs Temp 97.5 F L 09/12/24 07:00 Pulse 56 L 09/12/24 07:00 Resp 16 09/12/24 07:00 BP 98/63 09/12/24 07:00 Pulse Ox 99 09/12/24 07:00 FiO2 Intake & Output 09/11/24 09/12/24 09/12/24 18:59 06:59 18:59 Intake Total 1197 118 Balance 1197 118 Weight 97.069 kg Intake: Oral 1197 118 Other: Voiding Method Toilet Toilet # Voids 1 1 - Labs CBC & Chem 7: 09/12/24 03:27 09/12/24 03:27 Labs: Abnormal Lab Results - Last 24 Hours (Table) 09/12/24 09/12/24 Range/Units 03:27 03:27 RBC 3.34 L (4.40-5.60) X 10*6/uL Hgb 11.2 L (13.0-17.0) g/dL Hct 34.6 L (39.6-50.0) % MCV 103.6 H (80.0-97.0) FL MCH 33.5 H (27.0-32.0) pg RDW 16.7 H (11.5-14.5) % MPV 13.0 H (9.5-12.2) FL Lymphocytes # 0.56 L (0.90-5.00) X 10*3/uL Anion Gap 13.20 H (4.00-12.00) mmol/L BUN 43.7 H (9.0-27.0) mg/dL Creatinine 1.6 H (0.6-1.5) mg/dL Est GFR (CKD-EPI) 50 L (>=60) BUN/Creatinine Ratio 27.31 H (12.00-20.00) Ratio Glucose 114 H (70-110) mg/dL Calcium 8.4 L (8.7-10.3) mg/dL Total Bilirubin 1.7 H (0.3-1.2) mg/dL Alkaline Phosphatase 188 H (41-126) U/L Albumin 3.6 L (3.8-4.9) g/dL Albumin/Globulin Ratio 1.24 L (1.60-3.17) Ratio
--- NOTE | 2024-09-13 14:53 | P.DS ---
Providers Date of admission: 09/11/24 02:43 Attending physician: Jose Mirza Consults: 09/11/24 02:43 Consult Physician Routine Consulting Provider: [facility] Consult Reason/Comments: recurrent syncope Do you want consulting provider notified?: Yes Primary care physician: Ran Arboleda Hospital Course: Final Diagnosis Reported syncope per family with recurrent episodes at least 4 times over the last few weeks Chronic heart failure history with an EF of 10% AICD placement Elevated troponins, mild, likely secondary to hypotension and mild AZAEL, ACS ruled out acute COVID-19 clinically insignificant patient is maintained on room air Valvular heart disease History of hypertension History of nonischemic cardiomyopathy Chronic kidney disease Moderate pulmonary hypertension Noncompliance with diet and medications Discharge Disposition Patient stable for discharge home. Patient will continue off of losartan secondary to hypotension. Patient will continue all her same cardiac medic ations. His AICD was interrogated with no acute events noted. Patient was stable for discharge from cardiology perspective and will follow-up with Dr. Amaya in 2 to 3 weeks. Hospital Course This is a 59-year-old male who presented to the emergency department with increased weakness with another episode of lightheadedness and syncope and also noted to be COVID-positive. Patient follows with Dr. Arboleda along with Dr. Amaya in the outpatient setting with a past medical history of heart failure, GERD, rheumatoid arthritis, seizure disorder, severe anxiety, previous biventricular pacemaker. Apparently patient has been having recurrent falls and syncopal episodes upwards of 4 times over the last few weeks. Troponins were mildly elevated on admission and patient was also noted to be COVID-positive. Patient is sitting up at the bedside room air denies any shortness of breath or cough and denies any other people that have been sick or any other sick contacts. Patient was admitted with concerns of syncope and generalized weakness for cardiology evaluation. AICD was interrogated with no acute events noted. Echocardiogram reveals EF of 10 to 15% severely dilated LV cavity alberto rely dilated RV with reduced systolic dysfunction, severe pulmonary hypertension severe biatrial dilation severe mitral regurg severe tricuspid regurg mild aortic regurg. Patient stable with a BUN of 43 a creatinine of 1.6. Magnesium of 1.7. Please see medication reconciliation for a list of current medications. Thank you for allowing us to participate in the care of this patient. The impression and plan of care has been dictated by Avril Navarrete, Nurse Practitioner as directed. Dr. Shad MD I have performed a history and physical examination and medical decision making of this patient, discussed the same with the dictator, and agree with the dictators assessment and plan as written, documented as a scribe. Based on total visit time, I have performed more than 50% of this visit. Patient Condition at Discharge: Stable Plan - Discharge Summary New Discharge Prescriptions: New Furosemide [Lasix] 40 mg PO BID@0900,1600 #60 tab Continue Sertraline [Zoloft] 25 mg PO W/BRKFST carBAMazepine [Carbatrol] 600 mg PO BID-W/MEALS carvediloL [Coreg] 12.5 mg PO W/BRKFST carvediloL [Coreg] 6.25 mg PO W/SUPPER Potassium Chloride [Potassium Chloride ER] 10 meq PO W/BRKFST Spironolactone [Aldactone] 25 mg PO W/SUPPER Discontinued Furosemide [Lasix] 40 mg PO W/BRKFST Furosemide [Lasix] 20 mg PO W/SUPPER Losartan [Cozaar] 25 mg PO W/SUPPER Discharge Medication List Potassium Chloride [Potassium Chloride ER] 10 meq PO W/BRKFST 02/10/22 [History] carBAMazepine [Carbatrol] 600 mg PO BID-W/MEALS 02/10/22 [History] carvediloL [Coreg] 6.25 mg PO W/SUPPER 02/10/22 [History] carvediloL [Coreg] 12.5 mg PO W/BRKFST 02/10/22 [History] Spironolactone [Aldactone] 25 mg PO W/SUPPER 02/20/22 [History] Sertraline [Zoloft] 25 mg PO W/BRKFST 02/24/22 [History] Furosemide [Lasix] 40 mg PO BID@0900,1600 #60 tab 09/12/24 [Rx] Follow up Appointment(s)/Referral(s): Loyd Amaya DO [STAFF PHYSICIAN] - 09/26/24 8:15 am (Appointment will be at the [place] Location.) Ran Arboleda MD [Primary Care Provider] - 1-2 days Ambulatory/Diagnostic Orders: Basic Metabolic Panel [LAB.AMB] Time Frame: 3 Days, Location: None Selected Activity/Diet/Wound Care/Special Instructions: Continue with 1500 mL fluid restriction per every 24 hours Repeat blood work in 2 to 3 days to monitor kidney function Continue on increased dose of lasix 40 mg twice a day Keep your same appointment with Dr. Amaya Discharge Disposition: HOME SELF-CARE
== END 2024-09-12 12:07 | disposition home or self-care (01) ==
LOC: EC 00:41 → 6NMEDSUR 02:43
PROVIDERS: ADMIT Hospitalist; ATTEND Hospitalist
DX: R55 Syncope and collapse (principal); U07.1 COVID-19; R79.89 Other specified abnormal findings of blood chemistry; I13.0 Hypertensive heart and chronic kidney disease with heart failure and stage 1 through stage 4 chronic kidney disease, or unspecified chronic kidney disease; I50.22 Chronic systolic (congestive) heart failure; N18.9 Chronic kidney disease, unspecified; I42.8 Other cardiomyopathies; I08.3 Combined rheumatic disorders of mitral, aortic and tricuspid valves; I27.20 Pulmonary hypertension, unspecified; S00.01XA Abrasion of scalp, initial encounter; W19.XXXA Unspecified fall, initial encounter; Y92.000 Kitchen of unspecified non-institutional (private) residence as the place of occurrence of the external cause; G40.909 Epilepsy, unspecified, not intractable, without status epilepticus; M06.9 Rheumatoid arthritis, unspecified; F41.9 Anxiety disorder, unspecified; K21.9 Gastro-esophageal reflux disease without esophagitis; R29.6 Repeated falls; Z79.899 Other long term (current) drug therapy; Z88.0 Allergy status to penicillin; Z91.018 Allergy to other foods; Z91.119 Patient's noncompliance with dietary regimen due to unspecified reason; Z91.148 Patient's other noncompliance with medication regimen for other reason; Z95.810 Presence of automatic (implantable) cardiac defibrillator; Z87.891 Personal history of nicotine dependence; Z11.59 Encounter for screening for other viral diseases
CPT/HCPCS: 96374; 99285; 36415; 93005; 85379; 83880; 80053 ×2; 83735; 84484; 85025 ×2; 85610; 85730; 81003; 87636; 72170; 71046; 93970; 72125; 70450; 71275; G0378 ×2; C8929; J1940; Q9957; Q9967; 93306; 96361